=== PATIENT | female | born 2000 | race Caucasian/White ===

== ENCOUNTER 2024-08-04 14:24 | Emergency (ER) | payer MEDICARE, MEDICAID, SELFPAY ==
--- NOTE | ~2024-08-04 | XR_ITS ---
EXAMINATION: XR CHEST CLINICAL INFORMATION: ? foreign body COMPARISON: None available. TECHNIQUE: Frontal view of the chest was obtained. FINDINGS: No significant abnormality is noted involving the heart, lungs, mediastinum, bony thorax or soft tissues. No radiopaque foreign bodies seen in the chest. XR/XR chest 1V IMPRESSION: Unremarkable chest exam. Electronically signed by: Chadd Mcdaniel MD 08/04/2024 03:29 PM EST
--- NOTE | ~2024-08-04 | CT_ITS ---
CLINICAL HISTORY: foreign body CT abdomen and pelvis without contrast Comparison: None Findings: Mild atelectasis of the imaged lung bases. No obstructing stone in either kidney or either ureter. Mild fluid adjacent to the pancreas as can be seen with mild pancreatitis. Mild fluid and small mesenteric lymph nodes may be reactive. Mild steatotic change of the liver. The spleen is nonenlarged. The adrenal glands are normal. Gallbladder is unremarkable for noncontrast study. No small bowel obstruction. The appendix is within normal limits. Severe stool burden present.. The uterus is anteverted with intrauterine device in place. Superficial correlate opacities noted. Otherwise, no radiopaque retained foreign body. No adnexal soft tissue mass. Mild fluid in the pelvis is likely physiologic. Urinary bladder is unremarkable. Multilevel Schmorl's nodes of the thoracic lumbar vertebrae. IMPRESSION: 1. Intrauterine device is in place. Otherwise, no radiopaque retained foreign body. 2. No obstructing stone in either kidney or either ureter. 3. Mild fluid adjacent to the pancreas as can be seen with mild pancreatitis. This document has been electronically signed by: Derrick Hall MD on 08/04/2024 19:11:18
--- NOTE | 2024-08-04 15:03 | ED.GENADULT ---
HPI - General Adult General Chief complaint: Skin/Abscess/Foreign Body Stated complaint: SEC 21,INGESTED 3 MARKER CAPS T-1 PER EMS Time Seen by Provider: 08/04/24 14:46 Source: patient Mode of arrival: ambulatory Limitations: no limitations History of Present Illness HPI narrative: This is a 24 years old female brought in from [facility] because she ingested 3 cap from markers yesterday at 21:00. She arrived in no distress no abdominal pain no vomiting Onset (ago): day(s) (1) Location: abdomen Radiation: non-radiation Severity: mild Relieving factors: none Exacerbating factors: none Related Data Allergies Allergy/AdvReac Type Severity Reaction Status Date / Time No Known Allergies Allergy Verified 08/04/24 15:14 Review of Systems Constitutional: Constitutional: Reports no additional constitutional complaints Cardiovascular: Cardiovascular: Reports no additional cardiovascular complaints [facility] History [facility] Narrative: Depression, anxiety history of overdose Social History Social History Smoked in Last 30 Days: Yes Use of substances other than those prescribed or required for medical reasons: No Advance Directives: No Advance Directives Information Provided: Yes Physical Exam ED Vital Signs: Vital Signs - 24 hr 08/04/24 15:11 08/04/24 15:16 Temperature 97.0 F Pulse Rate 76 Respiratory Rate 18 Blood Pressure 148/70 H Pulse Oximetry 97 99 Oxygen Delivery Method Room Air Room Air BMI result Body Mass Index 53.1 No acute distress Const General: cooperative Orientation/consciousness: patient oriented x3 Limitations: no limitations HENMT Head: Yes normal to inspection General nose exam: Normal external nose present Face and sinus: Yes normal facial exam Mouth: Normal oral and palatal mucosa present Throat: Yes posterior oropharynx normal Neck Neck: Yes normal visual inspection and Yes full ROM Chest Chest palpation & inspection: normal inspection of the chest Resp Effort & Inspection: normal respiratory effort Auscultation: clear to auscultation bilaterally Cardio Jugular venous distension: no JVD Rate: regular rate Rhythm: regular rhythm GI Inspection: Yes normal to inspection Palpation (GI): Soft to palpation, not firm, nontender and no guarding Percussion: Yes normal to percussion Skin General skin exam: no rashes or lesions noted, elasticity normal and turgor normal Neuro General: patient oriented x3 Gait exam (Neuro): Normal gait present Motor exam (neuro): 5/5 motor strength present throughout Course Reevaluation(s) Reevaluation #1: signed off to Dr Mathews ct pending Time: 16:36 Medical Decision Making Medical Decision Making MDM Narrative: Patient presented with the ingestion of plastic cap we will obtain imaging Differential Diagnosis Differential Diagnoses: The differential diagnosis associated with the presentation includes Small-bowel obstruction Discharge Plan Discharge Clinical Impression: Foreign body ingestion Qualifiers: Encounter type: initial encounter Qualified Code(s): T18.9XXA - Foreign body of alimentary tract, part unspecified, initial encounter Patient Disposition: Still a Patient Print Language: Indian
[2024-08-04 15:11] VITALS: BP 144/76; BP 148/70; PULSE 76; PULSE 88; RESP 18; TEMP 36.1; O2SAT 97; O2SAT 99; BMI 53.1
[2024-08-04 15:16] VITALS: O2SAT 99
[2024-08-04] MEDS: Calcium Carbonate 750 MG TAB.CHEW 1500 MG PO (17:30)
[2024-08-04 18:06] LABS: UPreg QC Valid YES; Urine Pregnancy NEGATIVE (NEGATIVE)
[2024-08-04 18:28] VITALS: BP 107/55; PULSE 65; RESP 20; TEMP 37.1; O2SAT 97
--- OUTSIDE RECORDS SUMMARY | 2024-08-04 18:28 | XMS_ITS | Encounter Summary ---
Author Organization [facility] Address [address] [place] [address] Care Team Providers Care Svp Programmatic Tv Name Role Phone Kera Mcintyre Primary Care Provider [phone] Encounter Details Date Type Department Care Team (Late st Contact Info) Description 07/17/2024 Patient Outreach [facility] [address] [facility] [address] [place] [address] Madisyn Núñez Social History Tobacco Use Types Packs/Day Years Used Date Smoking Tobacco: Former Cigarettes 0.5 8.2 S tarted: 2017 Smokeless Tobacco: Current Last attempted to quit: 2019 Comments:Vapes nicotine Passive Exposure Comments:Pt vapes nicotine Alcohol Use Standard Drinks/Week Comments Not Currently 0 (1 standard drink = 0.6 oz pur e alcohol) Sober since 08/28/2021 [facility] Utilities Answer Date Recorded In the past 12 months has [email or web address], gas, oil, or water [employer] threatened to shut off services in your home? No 01/29/2024 Hunger Vital Sign Answer Date Recorded Within the past 12 months, y ou worried that your food would run out before you got the money to buy more. Never true 01/29/20 24 Within the past 12 months, t he food you bought just didn't last and you didn't have money to get more. Never true 01/29/2024 Transportation Answer Date Recorded In the past 12 months, has l ack of reliable transportation kept you from medical appointments, meetings, work or from getting things needed for daily living? No 01/29/2024 Housing Answer Date Recorded Housing Risk Low 2 01/29/2024 Housing Risk Medium Not on file 01/29/2024 Housing Risk High Not on file 01/29/2024 What is your living situation today? [facility] 01/29/2024 Comments No Sex and Gender Information Value Date Recorded Sex Assigned at Female 10/22/2021 6:27 AM EDT Legal Sex Female 5:19 AM EDT Gender Identity Female 10/22/2021 6:27 AM EDT Sexual Orientation Bisexual 11/22/2021 3: 04 AM EDT documented as of this encounter Progress Notes * Madisyn Núñez - 07/17/2024 2:09 PM EST EPIC reviewed. RN placed call to patient and left voice message, [phone] on [employer], with contact information/requesting a call back.No response from patient. Please send a referral if further needs arise. 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 no If not, what was the reason no one is assisting if member cannot complete independently? n/a What progress was made by the patient? Patient was going to follow up with Medicare/[employer] re:benefits when returning to work What barriers does the patient have? none Is patient still being managed by the [facility] care team? no documented in this encounter Plan of Treatment Upcoming Encounters Date Type Department Care Team (Late st Contact Info) Description 08/28/2024 3:00 PM EDT Follow-Up [facility] [address] [facility] [address] [place] [address] Fabián Franks MD [address] [place] [address] [phone] (Work) 10/03/2024 1:45 PM EDT Follow-Up [facility] [address] [place] [phone] [employer] Equipment Tender: Mary Smith MD [address] [facility] [place] [address] documented as of this encounter Visit Diagnoses Not on filedocumented in this encounter Care Teams Svp Programmatic Tv Relationship Specialty Start Date End Date Kera Mcintyre PA [address] [place] [address] [phone] PCP - General Physician Ramp Jockey 03/14/23 documented as of this encounter
--- OUTSIDE RECORDS SUMMARY | 2024-08-04 18:28 | XMS_ITS | Encounter Summary ---
Author Organization [facility] Address [address] [place] [address] Care Team Providers Care [employer] Filler C[employer] Rol[employer] Name Role Phone Kera Mcintyre Primary Care Provider [phone] Reason for Visit * Reason Comments Suicidal Encounter Details Date Type Department Care Team (Late st Contact Info) Description 07/31/2024 8:15 PM EST - 08/01/2024 11:37 AM EST Emergency [facility] Emergency Department [address] [place] [address] Angus Frey MD [address] [place] [id number] Mejia Crawley MD [address] [place] [id number] Aly Shipley MD [address] [place] [phone] Suicidal ideation (Primary Dx) Discharge Disposition: Short Term[facility] () Social History Tobacco Use Types Packs/Day Years Used Date Smoking Tobacco: Former Cigarettes 0.5 8.2 S tarted: 2017 Smokeless Tobacco: Current Last attempted to quit: 2019 Comments:Vapes nicotine Passive Exposure Comments:Pt vapes nicotine Alcohol Use Standard Drinks/Week Comments Not Currently 0 (1 standard drink = 0.6 oz pur e alcohol) Sober since 08/28/2021 [facility] Utilities Answer Date Recorded In the past 12 months has th e electric, gas, oil, or water company threatened to shut off services in your [...] AM EDT documented as of this encounter Last Filed Vital Signs Vital Sign Reading Time Taken Comments Blood Pressure 118/77 08/01/2024 8:32 AM EST Pulse 71 08/01/2024 8:32 AM EST Temperature 36.9 ??C (98.5 ??F) 08/01/2024 8:32 AM ES T Respiratory Rate 18 08/01/2024 8:32 AM EST Oxygen Saturation 98% 08/01/2024 8:32 AM EST Inhaled Oxygen Concentration - - Weight 167.8 kg (370 lb) 07/31/2024 7:33 PM EST Height 177.8 cm (5' 10 ) 07/31/2024 7:33 PM EST Body Mass Index 53.09 07/31/2024 7:33 PM EST documented in this encounter Medications at Time of Discharge acetaminophen (TYLENOL) 500 mg tablet Take 2 tablets (1,000 mg total) by mouth every 8 hours as needed for pain or fever. 100 tablet 1 2 albuterol (PROAIR HFA,VENTOLIN HFA) 90 mcg inhalerIndications: RAD (reactive airway disease), mild intermittent, uncomplicated Inhale 2 puffs (180 mcg total) by mouth every 6 hours as needed for wheezing or shortness of breath. Use with spacer. 8.5 g 5 2 busPIRone (BUSPAR) 15 mg tabletIndications:A nxiety Take 1 tablet (15 mg total) by mouth 2 times a day. At 8AM and 8PM 60 tablet 5 5 cephalexin (KEFLEX) 500 mg capsule Take 500 mg by mouth 2 times a day. clindamycin (CLEOCIN T) 1 % gel Apply topically to the affected area 2 times a day. clonazePAM (KlonoPIN) 0.5 mg tabletIndications:A nxiety Take 1 tablet (0.5 mg total) by mouth daily as needed for anxiety or agitation. 7 tablet 5 5 copper (PARAGARD T 380A INTRAUTERI) 1 each by intrauterine route once. diclofenac (VOLTAREN) 1% gel [address] (DEPAKOTE) 125 mg EC tabletIndications:B ipolar II disorder, mild, hypomanic, with mood-congruent psychotic features, in partial remission (HCC) Take 1 tablet (125 mg total) by mouth every night. Take along with 1500mg for total daily dose = 1650mg, nightly at 8PM 30 tablet 5 5 divalproex ER (Depakote ER) 500 mg tabletIndications:B ipolar II disorder, mild, hypomanic, with mood-congruent psychotic features, in partial remission (HCC),Encounter for long-term (current) use of medications Take 3 tablets (1,500 mg total) by mouth every night. At 8PM 90 tablet 5 5 Flovent HFA 110 mcg/actuation inhaler 2 fluoride, sodium, 1.1 % paste USE IN PLACE OF REGULAR TOOTHPASTE TWICE A DAY. 3 methocarbamoL (ROBAXIN) 500 mg tablet SMARTSI Tablet(s) By Mouth 4 Times Daily PRN 3 multivitamin (Multiple Vitamins) tablet Take 1 tablet by mouth once a day. mupirocin (BACTROBAN) 2% ointmentIndications :Furuncles Apply topically to the affected area 3 times a day. Apply to boils after warm compresses. 60 g 5 2 omeprazole (PriLOSEC) 40 mg capsule TAKE 1 CAPSULE(40 MG) BY MOUTH TWICE DAILY 180 capsule 5 ondansetron (ZOFRAN ODT) 4 mg disintegrating tablet Dissolve 1 tablet (4 mg total) in the mouth every 8 hours as needed for nausea or vomiting for up to 15 doses. 15 tablet 4 oxybutynin XL (DITROPAN XL) 10 mg tablet Take 1 tablet (10 mg total) by mouth once a day. 90 tablet 1 4 perphenazine (TRILAFON) 4 mg tabletIndications:B ipolar II disorder, mild, hypomanic, with mood-congruent psychotic features, in partial remission (HCC),Anxiety Take 1 tablet (4 mg total) by mouth 2 times a day. At 8AM and 8PM 60 tablet 5 5 polyethylene glycol (GoLYTELY) solution Take according to instructions provided by physician. 4000 mL 4 pregabalin (LYRICA) 100 mg capsule Take 200 mg by mouth every night. propranoloL (INDERAL) 40 mg tabletIndications:C hest pain, unspecified type Take 1 tablet (40 mg total) by mouth 2 times a day. 60 tablet 1 3 QUEtiapine (SEROquel) 25 mg tabletIndications:B ipolar II disorder, mild, hypomanic, with mood-congruent psychotic features, in partial remission (HCC) Take 1 tablet (25 mg total) by mouth nightly. At 8PM 30 tablet 5 5 rimegepant ODT 75 mg (Nurtec ODT) 75 mg tablet,disintegrati ng disintegrating tablet Dissolve in the mouth. Has not used yet SUMAtriptan (IMITREX) 50 mg tablet Take 1 tablet (50 mg total) by mouth once as needed for migraine (headache) for up to 1 dose. May repeat one time after 2 hours if needed. 27 tablet 3 2 tiZANidine (ZANAFLEX) 4 mg tablet Take 4 mg by mouth every 8 hours as needed for muscle spasms. documented as of this encounter ED Notes * Angus rFey MD - 07/31/2024 7:21 PM EST History HPI: Chief Complaint Patient presents with Suicidal HPI This is a 24 y.o. female with significant PMHx of outlined below including extensive psychiatric history presents to the ED with concern for worsening depression and intermittent suicidal ideation. Notes increasing stressors surrounding new job as well as family concerns. Has felt increasing stress surrounding a new job, has been following with psychiatrist but feels that symptoms have been decompensating. Has had intermittent thoughts of wanting to harm self by taking medications although has not actually done so. No self injury. Today stayed home from work was feeling manic and thus presents here for evaluation. Does note active SI no plan at this time. No HI no other medical complaints. Did stop taking lithium 3 months ago and believes is contributing. 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 Migraines Mild intermittent asthma Since childhood PCOS (polycystic ovarian syndrome) POTS (postural orthostatic tachycardia syndrome) 2004 Sleep apnea TMJ (temporomandibular joint disorder) Past Surgical History: Procedure Laterality Date CA COLONOSCOPY FLX DX W/COLLJ SPEC WHEN PFRMD N/A 07/18/2024 Procedure: COLONOSCOPY, DIAGNOSTIC, WITH POSSIBLE MODERATE SEDATION; Surgeon: Fabián Franks MD; Location: [facility] Endo; Service: Gastroenterology CA ESOPHAGOGASTRODUODENOSCOPY TRANSORAL DIAGNOSTIC N/A 07/18/2024 Procedure: UPPER ENDOSCOPY; DIAGNOSTIC WITH BRUSH/WASH (SP) WITH POSSIBLE MODERATE SEDATION; Surgeon: Fabián Franks MD; Location: [facility] Endo; Service: Gastroenterology TONSILECTOMY Family History Problem Relation Age of Onset Parkinsonism Mother Thyroid nodules Mother Bening Other Mother suspected CVA Migraines Mother Schizophrenia Father Gallbladder disease Maternal Half-sister TAMIE disease Maternal Half-sister Migraines Maternal Half-sister No Known Problems Paternal Half-sister Gallbladder disease Maternal Half-brother Thyroid cancer Neg Hx Diabetes type II Neg Hx Social History Tobacco Use Smoking status: Former Current packs/day: 0.50 Average packs/day: 0.5 packs/day for 8.2 years (4.1 ttl pk-yrs) Types: Cigarettes Start date: 2016 Smokeless tobacco: Current Last attempt to quit: 2019 Tobacco comments: Vapes nicotine Vaping Use Vaping status: Every Day Substances: Nicotine, Flavoring, Nicotine-salt Substance Use Topics Alcohol use: Not Currently Comment: Sober since 08/28/2021 Drug use: Not Currently Types: Crack cocaine, Benzodiazepines, Methamphetamines, Methylphenidate Comment: none 08/28/2021 Vaping Questions Responses Vaping Use Current Every Day User Nicotine Yes Nicotine Salt Yes Flavored Yes Sexuality and Gender Identity Sexuality Patient's sexual orientation: Bisexual Legal Information Legal first name: Roberto Legal last name: Jose Guadalupe Legal sex: Female Gender Identity Patient's gender identity: Female Patient's sex assigned at : Female Patient pronouns: she/her/hers[HG1.1] Affirmation steps patient has taken, if any: fashion aligned with gender identity[HG1.1] Organ Inventory Organs the patient currently has: Organs present at or expected at to develop: Organs surgically enhanced or constructed: Organs hormonally enhanced or developed: breasts cervix ovaries uterus vagina penis prostate testes Attribution HG1.1 Lesea Bradshaw RN 11/22/21 03:04 Review of Systems REVIEW OF SYSTEMS: Physical Exam Physical Exam ED Triage Vitals [07/31/24 1933] Temp Heart Rate Resp BP SpO2 36.8 ??C (98.3 ??F) 100 20 (!) 152/93 95 % Temp src Heart Rate Source Patient Position BP Location Set FiO2 (O2%) -- Pulse Oximeter Sitting Right arm -- Physical Exam Vitals and nursing note reviewed. Constitutional: Comments: Alert, no distress HENT: Head: Normocephalic and atraumatic. Mouth/Throat: Mouth: Mucous membranes are moist. Eyes: General: No scleral icterus. Pupils: Pupils are equal, round, and reactive to light. Comments: Eyes dilated but equal and reactive pupils Cardiovascular: Rate and Rhythm: Normal rate. Pulses: Normal pulses. Heart sounds: No murmur heard. Pulmonary: Effort: Pulmonary effort is normal. Breath sounds: Normal breath sounds. Abdominal: Palpations: Abdomen is soft. Tenderness: There is no abdominal tenderness. Musculoskeletal: Cervical back: Normal range of motion and neck supple. Right lower leg: No edema. Left lower leg: No edema. Comments: Legs warm and perfused Skin: General: Skin is warm and dry. Neurological: Mental Status: She is alert. Comments: Alert and oriented Psychiatric: Comments: Somewhat withdrawn reports SI no HI no active response to internal stimuli Medical Decision Making and ED Course MDM 24 y.o. female with PMHx as noted above presents with worsening mental health concerns. Here she iscalm appropriate and in no distress but has had some intermittent suicidal ideation. No active plan. She denies any Co. ingestion despite her history. At this time will place in line for CH[facility] evaluation will place section 12, no active medical concerns but will check labs given her valproate use to ensure there is no evidence of complication. Roberto Shi : 2000 CSN: [id number] Angus Frey MD 08/02/24 0710 documented in this encounter Miscellaneous Notes * ED Continuation of Care - Aly Shipley MD - 08/01/2024 8:45 AM EST 08/01/24 12:09 PM Patient signed out to me by The patient is a 24 y.o. female signed out to me at shift change. The patient is here with SuicidalIdeation and is on a Section XIIa. The plan is Inpatient Bed Search. Labs Reviewed VALPROIC ACID LEVEL, TOTAL - Abnormal Result Value Valproic Acid, Total 49 (*) RAPID COVID-19 RNA FOR SURVEILLANCE (ED ONLY) - Normal PCR, SARS CoV-2 RNA Not Detected Narrative: This test was developed, validated and its performance characteristics determined by [facility]. This test has not been cleared or approved by the U.S. Food and Drug Administration (FDA). FDA Policy for Diagnostic Tests for Coronavirus Disease-2019 during the Public Health Emergency issuedAugust 18, 2019, is followed. HCG, QUALITATIVE, SERUM - Normal HCG Qualitative, Serum Negative No orders to display Medications methocarbamoL (ROBAXIN) tablet 500 mg (has no administration in time range) SUMAtriptan (IMITREX) tablet 50 mg (has no administration in time range) albuterol (PROAIR HFA,VENTOLIN HFA) 90 mcg inhaler 180 mcg (has no administration in time range) busPIRone (BUSPAR) tablet 15 mg (15 mg oral Given 08/01/24839) divalproex DR (DEPAKOTE) EC tablet 125 mg (125 mg oral Given 07/31/242144) divalproex ER (DEPAKOTE ER) tablet 1,500 mg (1,500 mg oral Given 07/31/242144) pantoprazole DR (PROTONIX) tablet 20 mg (20 mg oral Given 08/01/24840) ondansetron (ZOFRAN ODT) disintegrating tablet 4 mg (has no administration in time range) perphenazine (TRILAFON) tablet 4 mg (4 mg oral Given 08/01/24840) pregabalin (LYRICA) capsule 200 mg (200 mg oral Given 07/31/242144) propranoloL (INDERAL) tablet 40 mg (40 mg oral Given 08/01/24840) QUEtiapine (SEROquel) tablet 25 mg (25 mg oral Given 07/31/242144) clonazePAM (KlonoPIN) tablet 0.5 mg (0.5 mg oral Given 08/01/24224) acetaminophen (TYLENOL) tablet 975 mg (975 mg oral Given 07/31/242110) ASSESSMENT/PLAN Diagnosis: (R45.851) Suicidal ideation (primary encounter diagnosis) Disposition: Transfer to [facility] Prescriptions: ED Prescriptions None Followup: documented in this encounter Plan of Treatment Upcoming Encounters Date Type Department Care Team (Late st Contact Info) Description 08/28/2024 3:00 PM EDT Follow-Up [facility] [address] [place] [address] Fabián Franks MD [address] [place] [phone] (Work) 10/03/2024 1:45 PM EDT Follow-Up [facility] [address] [facility], [address] [address] Harpooner: Mary Smith MD [address] [facility] [place] [address] documented as of this encounter Procedures * Due to [place] Ixtens law, this organization might not be sharing negative HIV tests. Procedure Name Priority Date/Time Associated Diagnosis Comments HCG, QUALITATIVE, SERUM STAT 07/31/2024 9:36 PM EST VALPROIC ACID LEVEL, TOTAL STAT 07/31/2024 9:36 PM EST RAPID COVID-19 RNA FOR SURVEILLANCE (ED ONLY) STAT 07/31/2024 9:35 PM EST documented in this encounter Results * Due to [place] Ixtens law, this organization might not be sharing negative HIV tests. * (ABNORMAL) Valproic Acid Level, Total (07/31/2024 9:36 PM EST) Valproic Acid, Total 49(L) 50 - 100 ug/mL 07/31/2024 10:09 PM EST [facility] Blood Structure of peripheral vein / Unknown Venipuncture / Unknown 07/31/2024 9:36 PM EST 07/31/2024 9:39 PM EST us Angus Frey MD LAB BLOOD ORDERABLES Final Result [facility] LESport[facility]CAR[facility] [address] [place] [address], * hCG, Qualitative, Serum (07/31/2024 9:36 PM EST) HCG Qualitative, Serum Negative Negative [facility] 07/31/2024 10:17 PM EST [facility] Comment: hCG may be negative in early . ??Suggest repeat testing in 2-4 days if clinically indicated. ??The results of this test should be interpreted with the patient's clinical presentation. Blood Structure of peripheral vein / Unknown Venipuncture / Unknown 07/31/2024 9:36 PM EST 07/31/2024 9:39 PM EST Angus Frey MD LAB BLOOD ORDERABLES Final Result Performing Organization Address City/[facility]/ZIP Co de Phone Number [facility] [address] [place] [phone], * Rapid COVID-19 for Surveillance - Psych/Admission (07/31/2024 9:35 PM EST) Pathologist [facility] PCR, SARS CoV-2 RNA Not Detected Not Detected [facility] 07/31/2024 10:14 PM EST [facility] Comment:A Not Detected (Nega tive) test result is indicative of the absence of SARS-CoV-2 RNA at the level of LoD (Limit of Detection). A negative result does not rule out the possibility of COVID-19 and should not be used as the sole basis for treatment or patient management decisions. If COVID-19 is still suspected, based on exposure history together with other clinical findings, re-testing should be considered. Swab Specimen from nasopharyngeal structure / Unknown Non-Blood Collection / Unknown 07/31/2024 9:35 PM EST 07/31/2024 9:40 PM EST Narrative [facility] - 07/31/2024 10:14 PM EST This test was developed, validated and its performance characteristics determined by [facility]. This test has not been cleared or approved by the U.S. Food and Drug Administration (FDA). FDA Policy for Diagnostic Tests for Coronavirus Disease-2019 during the Public Health Emergency issued August 18, 2019, is followed. Angus Frey MD LAB BODY FLUIDS AND STOOLS ORDERABLES Final Result Performing Organization Address City/[facility]/ZIP Co de Phone Number [facility] [address] [place] [address], documented in this encounter Visit Diagnoses Diagnosis Suicidal ideation- Primary documented in this encounter Administered Medications Inactive Administered Medications - up to 3 most recent administrations Medication Order MAR Action Action Date Dose Rate Site acetaminophen (TYLENOL) tablet 975 mg 975 mg, oral, Once, On Day 07/31/24 at 2105, 1 dose, Patient may have acetaminophen for Pain/Headache/Fever >38C. Do not administer if patient has received Acetaminophen (Tylenol) within the past 4 hours. Max dose 975mg Given 07/31/2024 9:11 PM EST 975 mg busPIRone (BUSPAR) tablet 15 mg 15 mg, oral, 2 times daily, First dose on Sun08/01/24 at 0900, Until Discontinued Given 08/01/2024 8:40 AM EST 15 mg clonazePAM (KlonoPIN) tablet 0.5 mg 0.5 mg, oral, Daily PRN, anxiety, Starting on Sun08/01/24 at 0144, Until Sun08/01/24 at 1337, Hazardous Medication ? Reproductive Risk. Use PPE when handling. Given 08/01/2024 2:25 AM EST 0.[address] (DEPAKOTE) EC tablet 125 mg 125 mg, oral, Nightly, First dose on Day 07/31/24 at 2145, Until Discontinued, Do not crush. Hazardous Medication. Use PPE when handling. Given 07/31/2024 9:45 PM EST 125 mg divalproex ER (DEPAKOTE ER) tablet 1,500 mg 1,500 mg, oral, Nightly, First dose on Day 07/31/24 at 2145, Until Discontinued, Do not crush. Do not administer with carbonated beverages. Hazardous Medication. Use PPE when handling. Given 07/31/2024 9:45 PM EST 1,[address] (PROTONIX) tablet 20 mg 20 mg, oral, Daily, First dose on Sun08/01/24 at 0900, Until Discontinued, Do not crush. Given 08/01/2024 8:41 AM EST 20 mg perphenazine (TRILAFON) tablet 4 mg 4 mg, oral, 2 times daily, First dose on Sun08/01/24 at 0900, Until Discontinued Given 08/01/2024 8:41 AM EST 4 mg pregabalin (LYRICA) capsule 200 mg 200 mg, oral, Nightly, First dose on Day 07/31/24 at 2145, Until Discontinued Given 07/31/2024 9:45 PM EST 200 mg propranoloL (INDERAL) tablet 40 mg 40 mg, oral, 2 times daily, First dose on Sun08/01/24 at 0900, Until Discontinued, Hold for SBP less than 100 mmHg or HR less than 50 bpm. Given 08/01/2024 8:41 AM EST 40 mg QUEtiapine (SEROquel) tablet 25 mg 25 mg, oral, Nightly, First dose on Day 07/31/24 at 2145, Until Discontinued Given 07/31/2024 9:45 PM EST 25 mg documented in this encounter Active and Recently Administered Medications Times are shown in EST. Scheduled Medication Order 07/30/2024 07/31/2024 08/01/2024 acetaminophen (TYLENOL) tablet 975 mg (COMPLETED) 975 mg, oral, Once, On Day 07/31/24 at 2105, 1 dose, Patient may have acetaminophen for Pain/Headache/Fever >38C. Do not administer if patient has received Acetaminophen (Tylenol) within the past 4 hours. Max dose 975mg 2110 (Given - Provider: Vicki Sabillon RN) busPIRone (BUSPAR) tablet 15 mg 15 mg, oral, 2 times daily, First dose on Sun08/01/24 at 0900, Until Discontinued 0840 (Given - Provid er: Phyllis Francois RN) divalproex DR (DEPAKOTE) EC tablet 125 mg 125 mg, oral, Nightly, First dose on Day 07/31/24 at 2145, Until Discontinued, Do not crush. Hazardous Medication. Use PPE when handling. 2144 (Given - Provider: Vicki Sabillon RN) divalproex ER (DEPAKOTE ER) tablet 1,500 mg 1,500 mg, oral, Nightly, First dose on Day 07/31/24 at 2145, Until Discontinued, Do not crush. Do not administer with carbonated beverages. Hazardous Medication. Use PPE when handling. 2144 (Given - Provider: Vicki Sabillon RN) pantoprazole DR (PROTONIX) tablet 20 mg 20 mg, oral, Daily, First dose on Sun08/01/24 at 0900, Until Discontinued, Do not crush. 0841 (Given - Provid er: Phyllis Francois RN) perphenazine (TRILAFON) tablet 4 mg 4 mg, oral, 2 times daily, First dose on Sun08/01/24 at 0900, Until Discontinued 840 (Given - Provid er: Phyllis Francois RN) pregabalin (LYRICA) capsule 200 mg 200 mg, oral, Nightly, First dose on Sun07/31/24 at 2145, Until Discontinued 2144 (Given - Provider: Vicki Sabillon RN) propranoloL (INDERAL) tablet 40 mg 40 mg, oral, 2 times daily, First dose on Sun08/01/24 at 0900, Until Discontinued, Hold for SBP less than 100 mmHg or HR less than 50 bpm. 840 (Given - Provid er: Phyllis Francois RN) QUEtiapine (SEROquel) tablet 25 mg 25 mg, oral, Nightly, First dose on Sun07/31/24 at 2145, Until Discontinued 2144 (Given - Provider: Vicki Sabillon RN) PRN Medication Order 07/30/2024 07/31/2024 08/01/2024 albuterol (PROAIR HFA,VENTOLIN HFA) 90 mcg inhaler 180 mcg 180 mcg (2 puff), inhalation, Every 6 hours PRN, wheezing, shortness of breath, Starting on Sun07/31/24 at 2139, Until Sun08/01/24 at 1337, Is this a respiratory protocol order? No clonazePAM (KlonoPIN) tablet 0.5 mg 0.5 mg, oral, Daily PRN, anxiety, Starting on Sun08/01/24 at 0144, Until Sun08/01/24 at 1337, Hazardous Medication ? Reproductive Risk. Use PPE when handling. 0225 (Given - Provid er: Vicki Sabillon RN) methocarbamoL (ROBAXIN) tablet 500 mg 500 mg, oral, Once as needed, muscle spasms, Starting on Sun07/31/24 at 2139, 1 dose, Until Sun08/01/24 at 1337 ondansetron (ZOFRAN ODT) disintegrating tablet 4 mg 4 mg, oral, Every 8 hours PRN, nausea, vomiting, Starting on Day 07/31/24 at 2139, Until Sun08/01/24 at 1337 SUMAtriptan (IMITREX) tablet 50 mg 50 mg, oral, Once as needed, migraine, headache, Starting on Day 07/31/24 at 2139, Until Sun08/01/24 at 1337, Total daily dose should not exceed 200 mg. documented in this encounter Care Teams [employer]iller [employer] Roller Machine Relationship Specialty Start Date End Date Kera Mcintyre PA [address] [place] [id number] PCP - General Physician Hydraulic Technician 03/14/23 documented as of this encounter
--- OUTSIDE RECORDS SUMMARY | 2024-08-04 18:28 | XMS_ITS | Encounter Summary ---
Author Organization [facility] Address [address] [place] [address] Care Team Providers Care Field Collector Name Role Phone Kera Mcintyre Primary Care Provider [phone] Encounter Details Date Type Department Care Team (Late st Contact Info) Description 07/14/2024 Patient Outreach [facility] [address] [facility] [address] [place] [address] Madisyn Núñez Social History Tobacco Use Types Packs/Day Years Used Date Smoking Tobacco: Former Cigarettes 0.5 8.2 S tarted: 2017 Smokeless Tobacco: Current Last attempted to quit: 2019 Comments:Vapes nicotine Passive Exposure Comments:Pt vapes nicotine Alcohol Use Standard Drinks/Week Comments Not Currently 0 (1 standard drink = 0.6 oz pur e alcohol) Sober since 08/28/2021 [facility] Utilities Answer Date Recorded In the past 12 months has [employer], gas, oil, or water [employer] threatened to shut off services in your [...] encounter Progress Notes * Madisyn Núñez - 07/14/2024 12:54 PM EST EPIC reviewed. RN placed call to patient and left voice message, [phone] on [employer], with contact information/requesting a call back. Will continue to outreach patient. Madisyn Núñez RN, CR[facility] [phone] documented in this encounter Plan of Treatment Upcoming Encounters Date Type Department Care Team (Late st Contact Info) Description 08/28/2024 3:00 PM EDT Follow-Up [facility] [address] [facility] [address] [place] [id number] Fabián Franks MD [address] [place] [address] [phone] (Work) 10/03/2024 1:45 PM EDT Follow-Up [facility] [address] [place] [address] Livestock Farmer: Mary Smith MD [address] [place] [address] Obstetrics [place] [address] documented as of this encounter Visit Diagnoses Not on filedocumented in this encounter Care Teams Field Collector Relationship Specialty Start Date End Date Kera Mcintyre PA [address] [place] [address] PCP - General Physician Vehicle Mechanic 03/14/23 documented as of this encounter
--- OUTSIDE RECORDS SUMMARY | 2024-08-04 18:28 | XMS_ITS | Encounter Summary ---
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 Name Role Phone Kera Mcintyre Primary Care Provider [phone] Reason for Visit * Auth/Cert (Routine) Specialty Diagnoses / Procedures Referred By Tru wisdom Referred To Contact Diagnoses Hiatal hernia Change in bowel habits Hiatal hernia [K44.9] Change in bowel habits [R19.4] Procedures WI COLONOSCOPY FLX DX W/COLLJ SPEC WHEN PFRMD WI ESOPHAGOGASTRODUODENOSCOPY TRANSORAL DIAGNOSTIC COLONOSCOPY, DIAGNOSTIC, WITH POSSIBLE MODERATE SEDATION UPPER ENDOSCOPY; DIAGNOSTIC WITH BRUSH/WASH (SP) WITH POSSIBLE MODERATE SEDATION Referral ID Status Reason Start Date Expiration Date Visits Re quested Visits Authorized [id number] 99 [phone] Encounter Details Date Type Department Care Team (Late st Contact Info) Description 07/18/2024 2:30 PM EST - 07/18/2024 3:00 PM EST Surgery [facility] Endscopy and Minor Procedure [address] [place] [address] Fabián Franks MD [address] [place] [address] [phone] (Work) COLONOSCOPY, DIAGNOSTIC, WITH POSSIBLE MODERATE SEDATION [17954 (CPT??)] Social History Tobacco Use Types Packs/Day Years Used Date Smoking Tobacco: Former Cigarettes 0.5 8.2 S tarted: 2017 Smokeless Tobacco: Current Last attempted to quit: 2019 Comments:Vapes nicotine Passive Exposure Comments:Pt vapes nicotine Alcohol Use Standard Drinks/Week Comments Not Currently 0 (1 standard drink = 0.6 oz pur e alcohol) Sober since 08/28/2021 [facility] Utilities Answer Date Recorded In the [...] Sign Reading Time Taken Comments Blood Pressure 170/82 07/18/2024 2:30 PM EST Pulse 80 07/18/2024 2:14 PM EST Temperature 36.3 ??C (97.4 ??F) 07/18/2024 2:14 PM ES T Respiratory Rate 18 07/18/2024 2:14 PM EST Oxygen Saturation 94% 07/18/2024 2:30 PM EST Inhaled Oxygen Concentration - - Weight 164.2 kg (362 lb) 07/18/2024 1:10 PM EST Height 177.8 cm (5' 10 ) 07/18/2024 1:10 PM EST Body Mass Index 51.94 07/18/2024 1:10 PM EST documented in this encounter Discharge Instructions * Attachments The following attachments cannot be sent through Care Everywhere. * High Fiber Diet (Armenian) * Hiatal Hernia Discharge Instructions (Armenian) documented in this encounter Medications at Time [...] By Mouth 4 Times Daily PRN 3 mupirocin (BACTROBAN) 2% ointmentIndications :Furuncles Apply topically [...] nightly. At 8PM 30 tablet 5 5 SUMAtriptan (IMITREX) 50 mg tablet Take 1 tablet (50 mg total) by mouth once as needed for migraine (headache) for up to 1 dose. October repeat one time after 2 hours if needed. 27 tablet 3 2 documented as of this encounter H&P Notes * Fabián Franks MD - 07/18/2024 1:10 PM EST HISTORY AND PHYSICAL Subjective Chief Complaint: Hiatal hernia History of Present Illness: Change in bowel habits The following portions of the patient's history were reviewed, found to be unchanged or updated as appropriate: Family history, past medical history, social history, past surgical history and problemlist. Current Outpatient Medications: Click to expand medication list[1] Allergies: No Known Allergies Review of Systems: As per history of present illness. Objective Physical Exam: not currently . General Appearance: Alert,in no acute distress. Oriented to person, place and time. Chest: Clear to ausculation bilaterally, no wheeze, rales or rhonchi Heart: Regular rate and rhythm Abdomen: Soft, non-tender, non-distended Other exam findings pertinent to surgical condition: Assessment & Plan 24-year-old female with hiatal hernia and change in bowel habits. I will do both EGD and colonoscopy. Signature: Fabián Franks MD Electronic Signature [1] acetaminophen (TYLENOL) 500 mg tablet, Take 2 tablets (1,000 mg total) by mouth every 8 hours as needed for pain or fever. albuterol (PROAIR HFA,VENTOLIN HFA) 90 mcg inhaler, Inhale 2 puffs (180 mcg total) by mouth every 6hours as needed for wheezing or shortness of breath. Use with spacer. busPIRone (BUSPAR) 15 mg tablet, Take 1 tablet (15 mg total) by mouth 2 times a day. At 8AM and 8PM cephalexin (KEFLEX) 500 mg capsule, Take 500 mg by mouth 2 times a day. clindamycin (CLEOCIN T) 1 % gel, Apply topically to the affected area 2 times a day. clonazePAM (KlonoPIN) 0.5 mg tablet, Take 1 tablet (0.5 mg total) by mouth daily as needed for anxiety or agitation. copper (PARAGARD T 380A INTRAUTERI), 1 each by intrauterine route once. diclofenac (VOLTAREN) 1% gel, divalproex DR (DEPAKOTE) 125 mg EC tablet, Take 1 tablet (125 mg total) by mouth every night. Take along with 1500mg for total daily dose = 1650mg, nightly at 8PM divalproex ER (Depakote ER) 500 mg tablet, Take 3 tablets (1,500 mg total) by mouth every night. At8PM Flovent HFA 110 mcg/actuation inhaler, fluoride, sodium, 1.1 % paste, USE IN PLACE OF REGULAR TOOTHPASTE TWICE A DAY. fremanezumab-vfrm (Ajovy Autoinjector) 225 mg/1.5 mL auto-injector, Inject 1.5 mL (225 mg total) under the skin every 30 days. methocarbamoL (ROBAXIN) 500 mg tablet, SMARTSI Tablet(s) By Mouth 4 Times Daily PRN mupirocin (BACTROBAN) 2% ointment, Apply topically to the affected area 3 times a day. Apply to boils after warm compresses. omeprazole (PriLOSEC) 40 mg capsule, TAKE 1 CAPSULE(40 MG) BY MOUTH TWICE DAILY ondansetron (ZOFRAN ODT) 4 mg disintegrating tablet, Dissolve 1 tablet (4 mg total) in the mouth every 8 hours as needed for nausea or vomiting for up to 15 doses. oxybutynin XL (DITROPAN XL) 10 mg tablet, Take 1 tablet (10 mg total) by mouth once a day. perphenazine (TRILAFON) 4 mg tablet, Take 1 tablet (4 mg total) by mouth 2 times a day. At 8AM and 8PM polyethylene glycol (GoLYTELY) solution, Take according to instructions provided by physician. (Patient not taking: Reported on 05/23/2024) pregabalin (LYRICA) 100 mg capsule, Take 200 mg by mouth every night. propranoloL (INDERAL) 40 mg tablet, Take 1 tablet (40 mg total) by mouth 2 times a day. QUEtiapine (SEROquel) 25 mg tablet, Take 1 tablet (25 mg total) by mouth nightly. At 8PM SUMAtriptan (IMITREX) 50 mg tablet, Take 1 tablet (50 mg total) by mouth once as needed for migraine (headache) for up to 1 dose. May repeat one time after 2 hours if needed. documented in this encounter Procedure Notes * Fabián Franks MD - 07/18/2024 1:13 PM ESTAssociated Order(s): UPPER GI ENDOSCOPY [facility]ology Procedure Date: 07/18/2024 1:13 PM Patient Name: Roberto Shi Date of : 2000 Admit Type: Outpatient Age: 24 Room: [place] [address] Gender: Female Note Status: Finalized Attending MD: Fabián Franks MD Procedure: Upper GI endoscopy Indications: Follow-up of hiatal hernia Comorbidities Providers: Fabián Franks MD Referring MD: Fabián Franks MD (Referring MD), Kera Mcintyre (Referring ) Requesting Provider: Medicines: Monitored Anesthesia Care Complications: No immediate complications. Estimated Blood Loss: Estimated blood loss: none. Procedure: After obtaining informed consent, the endoscope was passed under direct vision. Throughout the procedure, the patient's blood pressure, pulse, and oxygen saturations were monitored continuously. The Upper GI Endoscopy was introduced through the mouth, and advanced to the second part of duodenum. The upper GI endoscopy was accomplished without difficulty. The patient tolerated the procedure well. Findings: A small hiatal hernia was present. The stomach was normal. The examined duodenum was normal. Impression: - Small hiatal hernia. - Normal stomach. - Normal examined duodenum. - No specimens collected. Fabián Franks MD 07/18/2024 2:13:19 PM Number of Addenda: 0 Note Initiated On: 07/18/2024 1:13 PM * Fabián Franks MD - 07/18/2024 1:13 PM ESTAssociated Order(s): COLONOSCOPY [facility] Procedure Date: 07/18/2024 1:13 PM Patient Name: Roberto Shi Date of : 2000 Admit Type: Outpatient Age: 24 Room: [place] [address] Gender: Female Note Status: Finalized Attending MD: Fabián Franks MD Procedure: Colonoscopy Indications: Change in bowel habits Comorbidities Providers: Fabián Franks MD Referring MD: Fabián Franks MD (Referring MD), Kera Mcintyre (Referring ) Requesting Provider: Medicines: Monitored Anesthesia Care Complications: No immediate complications. Estimated Blood Loss: Estimated blood loss: none. Procedure: After I obtained informed consent, the scope was passed under direct vision. Throughout the procedure, the patient's blood pressure, pulse, and oxygen saturations were monitored continuously. The Colonoscopy was introduced through the anus and advanced to the cecum, identified by appendiceal orifice and ileocecal valve. The colonoscopy was performed without difficulty. The patient tolerated the procedure well. The quality of the bowel preparation was good. Findings: The entire examined colon appeared normal. Impression: - The entire examined colon is normal. - No specimens collected. Recommendation: High Fiber Diet Fabián Franks MD 07/18/2024 2:14:30 PM Number of Addenda: 0 Note Initiated On: 07/18/2024 1:13 PM documented in this encounter Miscellaneous Notes * Post-Procedure Note - Fabián Franks MD - 07/18/2024 2:09 PM EST Brief Operative Note Procedure(s): COLONOSCOPY, DIAGNOSTIC, WITH POSSIBLE MODERATE SEDATION (N/A) UPPER ENDOSCOPY; DIAGNOSTIC WITH BRUSH/WASH (SP) WITH POSSIBLE MODERATE SEDATION (N/A) Pre-op Diagnosis * Hiatal hernia [K44.9] * Change in bowel habits [R19.4] Post-op Diagnosis: * Hiatal hernia [K44.9] * Change in bowel habits [R19.4] Surgeons and Role: * Fabián Franks MD - Primary Staff: Nurse: Dai Ballesteros RN Anesthesia: MAC Estimated Blood Loss: Minimal Anesthesia Encounters Anesthesia Encounter - Episode ID [id number] Intraprocedure I/O Totals Intake lactated Ringer's (LR) infusion 400.00 mL Total Intake 400 mL Specimens: * No specimens in log * Implants: * No implants in log * Drains: *No LDA information documented for this case* Complications: None Findings: No pathology noted in the colon Small hiatal hernia noted in the upper GI tract Recommendations: Roberto Shi : 2000 CSN: [id number] documented in this encounter Plan of Treatment Upcoming Encounters Date Type Department Care Team (Late st Contact Info) Description 08/28/2024 3:00 PM EDT Follow-Up [facility], [address] [facility] [address] [place] [id number] Fabián Franks MD [address] [place] [phone] (Work) 10/03/2024 1:45 PM EDT Follow-Up [facility]ro[facility]ne[facility] Clinic [address] [place] [address] Is Consultant: Mary Smith MD [address] [place] [address] Obstetrics [place] [address] documented as of this encounter Procedures * Due to [place] state law, this organization might not be sharing negative HIV tests. Procedure Name Priority Date/Time Associated Diagnosis Comments WI ESOPHAGOGASTRODUODENOSCOP Y TRANSORAL DIAGNOSTIC 07/18/2024 1:50 PM EST Hiatal hernia Change in bowel habits WI COLONOSCOPY FLX DX W/NII J SPEC WHEN PFRMD 07/18/2024 1:50 PM EST Hiatal hernia Change in bowel habits HCG QUALITATIVE, , URINE, POC Routine 07/18/2024 1:14 PM EST UPPER GI ENDOSCOPY 07/18/2024 COLONOSCOPY 07/18/2024 documented in this encounter Results * Due to [place] state law, this organization might not be sharing negative HIV tests. * HCG Qualitative, , Urine, POC, interfaced (07/18/2024 1:14 PM EST) HCG Qualitative, Urine, POCT Negative Negative 07/18/2024 1:20 PM EST [facility], POC Comment: Urine HCG testing should be used for early detection only. If the urine HCG result is inconsistent with, or unsupported by, clinical evidence, results should be confirmed with serum HCG method. Urine 07/18/2024 1:14 PM EST 07/18/2024 1:20 PM EST us Fabián Fransk MD LAB POCT ORDERAB LES - DEVICE Final Result [facility], POC [address] [place] [address], * COLONOSCOPY (07/18/2024) Narrative Procedure Note Fabián Franks MD - 07/18/2024 1:13 PM EST [facility] Procedure Date: 07/18/2024 1:13 PM Patient Name: Roberto Shi Date of : 2000 Admit Type: Outpatient Age: 24 Room: [place] [address] Gender: Female Note Status: Finalized Attending MD: Fabián Franks MD Procedure: Colonoscopy Indications: Change in bowel habits Comorbidities Providers: Fabián Franks MD Referring MD: Fabián Franks MD (Referring MD), Kera Mcintyre (ReferringMD) Requesting Provider: Medicines: Monitored Anesthesia Care Complications: No immediate complications. Estimated Blood Loss: Estimated blood loss: none. Procedure: After I obtained informed consent, the scope was passed under direct vision. Throughout theprocedure, the patient's blood pressure, pulse, and oxygen saturations were monitored continuously. The Colonoscopy was introduced through the anus and advanced to the cecum, identified by appendiceal orifice and ileocecal valve. The colonoscopy was performed without difficulty. The patient tolerated the procedure well. The quality of the bowel preparation was good. Findings: The entire examined colon appeared normal. Impression: - The entire examined colon is normal. - No specimens collected. Recommendation: High Fiber Diet Fabián Franks MD 07/18/2024 2:14:30 PM Number of Addenda: 0 Note Initiated On: 07/18/2024 1:13 PM us Fabián Franks MD [employer]ATION [employer] URES Final Result * UPPER GI ENDOSCOPY (07/18/2024) Narrative Procedure Note Fabián Franks MD - 07/18/2024 1:13 PM EST [facility] Procedure Date: 07/18/2024 1:13 PM Patient Name: Roberto Shi Date of : 2000 Admit Type: Outpatient Age: 24 Room: [place] [address] Gender: Female Note Status: Finalized Attending MD: Fabián Franks MD Procedure: Upper GI endoscopy Indications: Follow-up of hiatal hernia Comorbidities Providers: Fabián Franks MD Referring MD: Fabián Franks MD (Referring MD), Kera Mcintyre (ReferringMD) Requesting Provider: Medicines: Monitored Anesthesia Care Complications: No immediate complications. Estimated Blood Loss: Estimated blood loss: none. Procedure: After obtaining informed consent, the endoscope was passed under direct vision. Throughout theprocedure, the patient's blood pressure, pulse, and oxygen saturations were monitored continuously. The UpperGI Endoscopy was introduced through the mouth, and advanced to the second part of duodenum. The upperGI endoscopy was accomplished without difficulty. The patient tolerated the procedure well. Findings: A small hiatal hernia was present. The stomach was normal. The examined duodenum was normal. Impression: - Small hiatal hernia. - Normal stomach. - Normal examined duodenum. - No specimens collected. Fabián Franks MD 07/18/2024 2:13:19 PM Number of Addenda: 0 Note Initiated On: 07/18/2024 1:13 PM Fabián Franks MD [employer] PROC[employer] URES Final Result documented in this encounter Visit Diagnoses Diagnosis Hiatal hernia Diaphragmatic hernia without mention of obstruction or gangrene Change in bowel habits Other symptoms involving digestive system Hiatal hernia Diaphragmatic hernia without mention of obstruction or gangrene Change in bowel habits Other symptoms involving digestive system documented in this encounter Admitting Diagnoses Diagnosis Hiatal hernia Diaphragmatic hernia without mention of obstruction or gangrene Change in bowel habits Other symptoms involving digestive system documented in this encounter Care Teams Dielectric Machine Operator Relationship Specialty Start Date End Date Kera Mcintyre PA [address] [place] [id number] PCP - General Physician [place] Department Operator 03/14/23 documented as of this encounter
--- OUTSIDE RECORDS SUMMARY | 2024-08-04 18:28 | XMS_ITS | Encounter Summary ---
Author Organization [facility] Address [address] [place] [address] Care Team Providers Care Golf Manager Name Role Phone Kera Mcintyre Primary Care Provider [phone] Reason for Visit * Auth/Cert (Routine) Specialty Diagnoses / Procedures Referred By Tru wisdom Referred To Contact Diagnoses Hiatal hernia Change in bowel habits Hiatal hernia [K44.9] Change in bowel habits [R19.4] Procedures CO COLONOSCOPY FLX DX W/COLLJ SPEC WHEN PFRMD CO ESOPHAGOGASTRODUODENOSCOPY TRANSORAL DIAGNOSTIC COLONOSCOPY, DIAGNOSTIC, WITH POSSIBLE MODERATE SEDATION UPPER ENDOSCOPY; DIAGNOSTIC WITH BRUSH/WASH (SP) WITH POSSIBLE MODERATE SEDATION Referral ID Status Reason Start Date Expiration Date Visits Re quested Visits Authorized [id number] [phone] Encounter Details Date Type Department Care Team (Late st Contact Info) Description 07/18/2024 1:47 PM EST Anesthesia Event [facility] Endscopy and Minor Procedure [address] [place] [address] Katarzyna Louis [address] [place] [address] Benedict Jacome MD [address] [place] [address] Anesthesia Record Procedure Summary Procedure Name Responsible Anesthesiologist Anesthesia Start Time Anesthesia Stop Time COLONOSCOPY, DIAGNOSTIC, WITH POSSIBLE MODERATE SEDATION (Abdomen) Katarzyna Burger 07/18/24 1347 07/18/24 1410 Events Date Time Event Comment 07/18/2024 1311 1347 An Start 1349 An Start Data 1350 In Room 1352 An Induction The patient was reevaluated immediately before induction of anesthesia. 1352 Anesthesia Ready 1354 Proc Start 1408 an stop data 1408 Proc Fin 1409 Out of Room 1410 Handoff to RN I completed my handoff to the receiving nurse during which we: 1. Identified the patient 2. Identified the responsible provider 3. Reviewed the pertinent medical history 4. Discussed the surgical course 5. Reviewed intra-op anesthesia management and issues during anesthesia 6. Set expectations for post-procedure period 7. Allowed opportunity for questions and acknowledgement of understanding. 1410 An Stop Meds Name Total propofol (DIPRIVAN) 20ML vial 300 mg lidocaine 2% 60 mg midazolam (VERSED) 1 mg/mL injection colleen ution 2 mg lactated Ringer's (LR) infusion 400 mL * Agents Name ETO2 (%) Set FiO2 (O2%) * Blood No blood administrations on file. Lines, Drains, and Airways No LDAs on file. documented in this encounter Social History Tobacco Use Types Packs/Day Years Used Date Smoking Tobacco: Former Cigarettes 0.5 8.2 S tarted: 2017 Smokeless Tobacco: Current Last attempted to quit: 2019 Comments:Vapes nicotine Passive Exposure Comments:Pt vapes nicotine Alcohol Use Standard Drinks/Week Comments Not Currently 0 (1 standard drink = 0.6 oz pur e alcohol) Sober since 08/28/2021 [facility] Utilities Answer Date Recorded In the past 12 months has [employer], gas, oil, or water [employer] threatened to shut off services in your [...] Sign Reading Time Taken Comments Blood Pressure 135/58 07/18/2024 2:06 PM EST Pulse 29 07/18/2024 2:08 PM EST Temperature - - Respiratory Rate 15 07/18/2024 2:09 PM EST Oxygen Saturation 99% 07/18/2024 2:09 PM EST Inhaled Oxygen Concentration - - Weight - - Height - - Body Mass Index - - documented in this encounter OR Notes * Anesthesia Postprocedure Evaluation - Katarzyna Burger - 07/18/2024 2:18 PM EST Anesthesia Post-procedure Evaluation Patient:Roberto Shi : 2000 Date of Procedure: 07/18/2024 Procedure Summary Date: 07/18/24 Room / Location: [facility] / [facility] Endo Anesthesia Start: 1347 Anesthesia Stop: 1410 Procedures: COLONOSCOPY, DIAGNOSTIC, WITH POSSIBLE MODERATE SEDATION (Abdomen) UPPER ENDOSCOPY; DIAGNOSTIC WITH BRUSH/WASH (SP) WITH POSSIBLE MODERATE SEDATION (Esophagus) Diagnosis: Hiatal hernia Change in bowel habits (Hiatal hernia [K44.9]) (Change in bowel habits [R19.4]) Surgeons: Fabián Franks MD Responsible Provider: Katarzyna Burger Anesthesia Type: MAC ASA Status: 3 Last vitals Vitals Value Taken Time BP 119/41 07/18/24 1415 Temp 07/18/24 1418 Pulse 77 07/18/24 1418 Resp 15 07/18/24 1409 SpO2 92 % 07/18/24 1417 Vitals shown include unfiled device data. Anesthesia Post Evaluation Patient location during evaluation: PACU Patient participation: complete - patient participated Level of consciousness: awake Pain management: adequate Airway patency: patent Dental Evaluation: No change Anesthetic complications: no Cardiovascular status: acceptable and stable Respiratory status: acceptable and spontaneous ventilation Hydration status: acceptable Post Operative Nausea and Vomiting: No MIPS#404 Anesthesiology Smoking Abstinence Not current smoker xx404 MIPS#424 Perioperative Temperature Management Anesthesia time was less than 60 minutes (4256F), At least one body temperature greater than 95.8??F/35.5??C achieved within the 30 mins immediately prior to or the 15 minutes immediately following anesthesia end time (G9771) MIPS#430 ADULT Prevention of Post-Operative Nausea & Vomiting (PONV) Patient did not receive an inhalational anesthetic (xx430). Medical reason patient did not receive 2 anti-emetic agents (G9776): TIVA propofol MIPS#477 Multimodal Pain Management Patient was not administered multimodal pain management., No pain anticipated post op (G2149)Optimetrix ID: [id number] * Anesthesia Preprocedure Evaluation - Katarzyna Burger - 07/18/2024 1:11 PM EST Images from the original note were not included. Anesthesia Pre-procedure Evaluation Patient: Roberto Shi : 2000 Date of Procedure: 07/18/2024 Preoperative Diagnosis: Pre-op Diagnosis * Hiatal hernia [K44.9] * Change in bowel habits [R19.4] COLONOSCOPY, DIAGNOSTIC, WITH POSSIBLE MODERATE SEDATION: 34004 (CPT??) UPPER ENDOSCOPY; DIAGNOSTIC WITH BRUSH/WASH (SP) WITH POSSIBLE MODERATE SEDATION: 71823 (CPT??) Surgeon(s): Fabián Franks MD Past Medical / Past Surgical: Past Medical History: Diagnosis Date Anxiety Bipolar 1 disorder (HCC) Depression GERD (gastroesophageal reflux disease) Hidradenitis suppurativa History of pituitary adenoma Hypertension Kyphoscoliosis 10/23/2011 Lordosis (Acquired) 10/23/2011 Migraines Mild intermittent asthma Since childhood PCOS (polycystic ovarian syndrome) POTS (postural orthostatic tachycardia syndrome) 2004 TMJ (temporomandibular joint disorder) Past Surgical History: Procedure Laterality Date TONSILECTOMY Social / Family Histories: Vaping Questions Responses Vaping Use Current Every Day User Nicotine Yes Nicotine Salt Yes Flavored Yes Social History Tobacco Use Smoking status: Former Current packs/day: 0.50 Average packs/day: 0.5 packs/day for 8.1 years (4.1 ttl pk-yrs) Types: Cigarettes Start date: 2016 Smokeless tobacco: Current Last attempt to quit: 2019 Tobacco comments: Vapes nicotine Substance Use Topics Alcohol use: Not Currently Comment: Sober since 08/28/2021 Social History Substance and Sexual Activity Drug Use Not Currently Types: Crack cocaine, Benzodiazepines, Methamphetamines, Methylphenidate Comment: none 08/28/2021 Family History Problem Relation Age of Onset Parkinsonism Mother Thyroid nodules Mother Bening Other Mother suspected CVA Migraines Mother Schizophrenia Father Gallbladder disease Maternal Half-sister TAMIE disease Maternal Half-sister Migraines Maternal Half-sister No Known Problems Paternal Half-sister Gallbladder disease Maternal Half-brother Thyroid cancer Neg Hx Diabetes type II Neg Hx OB History No obstetric history on file. Prior to Admission medications Medication Sig Start Date End Date Taking? Authorizing Provider acetaminophen (TYLENOL) 500 mg tablet Take 2 tablets (1,000 mg total) by mouth every 8 hours as needed for pain or fever. 02/13/22 Estefanía Dhaliwal NP albuterol (PROAIR HFA,VENTOLIN HFA) 90 mcg inhaler Inhale 2 puffs (180 mcg total) by mouth every 6 hours as needed for wheezing or shortness of breath. Use with spacer. 01/06/22 Estefanía Dhaliwal NP busPIRone (BUSPAR) 15 mg tablet Take 1 tablet (15 mg total) by mouth 2 times a day. At 8AM and 8PM 06/06/24 Myesha Olguin MD cephalexin (KEFLEX) 500 mg capsule Take 500 mg by mouth 2 times a day. Unknown Provider, clindamycin (CLEOCIN T) 1 % gel Apply topically to the affected area 2 times a day. Unknown Provider, clonazePAM (KlonoPIN) 0.5 mg tablet Take 1 tablet (0.5 mg total) by mouth daily as needed for anxiety or agitation. 06/06/24 Myesha Olguin MD copper (PARAGARD T 380A INTRAUTERI) 1 each by intrauterine route once. Unknown Provider, diclofenac (VOLTAREN) 1% gel 05/18/22 Unknown Provider, divalproex DR (DEPAKOTE) 125 mg EC tablet Take 1 tablet (125 mg total) by mouth every night. Take along with 1500mg for total daily dose = 1650mg, nightly at 8PM 06/06/24 Myesha Olguin MD divalproex ER (Depakote ER) 500 mg tablet Take 3 tablets (1,500 mg total) by mouth every night. At 8PM 06/06/24 Myesha Olguin MD Flovent HFA 110 mcg/actuation inhaler 03/30/22 Unknown Provider, fluoride, sodium, 1.1 % paste USE IN PLACE OF REGULAR TOOTHPASTE TWICE A DAY. 06/01/23 Unknown Provider, frechilangoumab-vfrm (Ajovy Autoinjector) 225 mg/1.5 mL auto-injector Inject 1.5 mL (225 mg total) under the skin every 30 days. 10/24/22 10/19/23 Garfield Giraldo MD methocarbamoL (ROBAXIN) 500 mg tablet SMARTSI Tablet(s) By Mouth 4 Times Daily PRN 03/26/23 Unknown Provider, mupirocin (BACTROBAN) 2% ointment Apply topically to the affected area 3 times a day. Apply to boils after warm compresses. 01/06/22 Estefanía Dhaliwal NP omeprazole (PriLOSEC) 40 mg capsule TAKE 1 CAPSULE(40 MG) BY MOUTH TWICE DAILY 06/09/24 ARELI Kim ondansetron (ZOFRAN ODT) 4 mg disintegrating tablet Dissolve 1 tablet (4 mg total) in the mouth every 8 hours as needed for nausea or vomiting for up to 15 doses. 02/11/24 Franky Roth MD oxybutynin XL (DITROPAN XL) 10 mg tablet Take 1 tablet (10 mg total) by mouth once a day. 03/14/24 ARELI Kim perphenazine (TRILAFON) 4 mg tablet Take 1 tablet (4 mg total) by mouth 2 times a day. At 8AM and 8PM 06/06/24 Myesha Olguin MD polyethylene glycol (GoLYTELY) solution Take according to instructions provided by physician. Patient not taking: Reported on 05/23/2024 05/06/24 Fabián Franks MD pregabalin (LYRICA) 100 mg capsule Take 200 mg by mouth every night. Unknown Provider, propranoloL (INDERAL) 40 mg tablet Take 1 tablet (40 mg total) by mouth 2 times a day. 01/18/23 Leesa Ritter NP QUEtiapine (SEROquel) 25 mg tablet Take 1 tablet (25 mg total) by mouth nightly. At 8PM 06/06/24 Myesha Olguin MD SUMAtriptan (IMITREX) 50 mg tablet Take 1 tablet (50 mg total) by mouth once as needed for migraine(headache) for up to 1 dose. May repeat one time after 2 hours if needed. 01/11/22 Garfield Giraldo MD Allergies: Patient has no known allergies. Vitals / Weight: not currently . Recent Labs: Latest Ref Rng & Units 01/20/2022 8:47 AM HgbA1c Hemoglobin A1C <5.7 % of total Hgb 4.9 Latest Ref Rng & Units 02/28/2024 2:46 PM CBC WBC 3.4 - 10.8 x10E3/uL 6.3 Hgb 11.1 - 15.9 g/dL 12.3 MCV 79 - 97 fL 91 Plts 150 - 450 x10E3/uL 338 Latest Ref Rng & Units 02/11/2024 8:31 PM Basic Metabolic Panel Sodium 136 - 145 mmol/L 135 Potassium 3.5 - 5.3 mmol/L 3.8 Chloride 98 - 107 mmol/L 104 Carbon Dioxide 22 - 30 mmol/L 28 Glucose 70 - 99 mg/dL 87 Creatinine 0.60 - 1.30 mg/dL 1.20 Calcium 8.5 - 10.1 mg/dL 9.9 EGFR >=60 mL/min/1.73m2 65 Recent EKG: Patient's Hospital Problems: Patient Active Problem List Diagnosis Idiopathic scoliosis and kyphoscoliosis Lordosis (Acquired) Anxiety GERD (gastroesophageal reflux disease) Hiatal hernia Sciatica Chronic radicular pain of lower back Morbid obesity with BMI of 40.0-44.9, adult (HCC) Tobacco use disorder Mild intermittent asthma Intractable chronic migraine without aura and without status migrainosus POTS (postural orthostatic tachycardia syndrome) Borderline personality disorder (CMS/HCC) (HCC) Dissociative convulsions H/O: attempted suicide Kyphosis of thoracic region Nicotine dependence Migraine Irritable bowel syndrome Fibromyalgia Obesity Obstructive sleep apnea syndrome PCOS (polycystic ovarian syndrome) Neuropathy Raynaud's disease Insomnia Acne Hidradenitis suppurativa Housing instability Bipolar II disorder, mild, hypomanic, with mood-congruent psychotic features, in partial remission (HCC) Finding of above normal blood pressure continuous churn buttermaker current use of therapeutic drug Overactive bladder Encounter for IUD insertion Flu vaccine need Need for hepatitis C screening test Asthma Abscess of genital labia Postural urinary incontinence Acute vaginitis Diarrhea Hiatal hernia Change in bowel habits Anesthesia Evaluation Patient summary reviewed and nursing notes reviewed. Anesthesia History: no previous history of anesthetic complications Pulmonary (+) asthma (WELL CONTROLLED), sleep apnea on confirmed and No CPAP, and obstructive sleep apnea risk education given perioperatively. a smoker instructed to abstain from smoking on day of procedure, not an ex-cigarette smoker , vaping user, no marijuana use (-) pneumonia, COPD Cardiovascular (+) hypertension , , , , , , , (-) past ND, dysrhythmias, angina, CHF ROS comment: POTS Neuro/Psych (+) seizures, neuropathy migraine, chronic pain syndrome (on lyirica) psychiatric history, depression, anxiety, bipolar disorder, ETOH, alcohol use remission (-) TIA, CVA GI/Hepatic/Renal (+) hiatal hernia, GERD well controlled, heartburn, liver disease, fatty liver disease, no chronic renal disease, bowel prep (-) hepatitis, renal disease Endo/Other (+) , obesity (-) diabetes mellitus, hypothyroidism, hyperthyroidism, cancer Infectious Disease OB Patient: no History of Present Illness: [id number] Physical Exam Airway Mallampati: II TM distance: >3 FB Neck ROM: full Mouth Opening: good Cardiovascular - normal exam Rhythm: regular Dental - normal exam Pulmonary - normal exam Breath sounds clear to auscultation Abdominal - normal exam Anesthesia Plan ASA 3 Anesthesia Type: MAC Pre-Anesthesia Review by Attending Anesthesiologist: Katarzyna Burger Date: 07/18/2024 Time: 1:11 PM I have interviewed and examined the patient and conducted a pre-anesthesia evaluation that includedreview of the complete medical history, notation of a relevant patient problem list and review of all pertinent preoperative studies, laboratory testing and specialty consultations. An assessment of anesthetic risk including ASA classification and an anesthetic plan have been documented. Original Author: Benedict Jacome MD documented in this encounter Plan of Treatment Upcoming Encounters Date Type Department Care Team (Late st Contact Info) Description 08/28/2024 3:00 PM EDT Follow-Up [facility] GASTROENTEROLOGY, [address] [address] Fabián Franks MD [address] [place] [address] [phone] (Work) 10/03/2024 1:45 PM EDT Follow-Up [facility] [address] [place] [phone] Plastic Tool Maker: Mary Smith MD [address] [place] [address] Ob[place] [address] documented as of this encounter Visit Diagnoses Not on filedocumented in this encounter Administered Medications Inactive Administered Medications - up to 3 most recent administrations Medication Order MAR Action Action Date Dose Rate Site lactated Ringer's (LR) premix infusion intravenous, Continuous PRN, Starting on Sun07/18/24 at 1341, Until Sun07/18/24 at 1410, Anesthesia Intra-op New Bag/Syringe 07/18/2024 1:41 PM EST lidocaine (XYLOCAINE) 2% (20 mg/mL) injection intradermal, As needed, Starting on Sun07/18/24 at 1352, Until Sun07/18/24 at 1410, Anesthesia Intra-op Given 07/18/2024 1:52 PM EST 60 mg midazolam (VERSED) injection intravenous, As needed, Starting on Sun07/18/24 at 1349, Until Sun07/18/24 at 1410, Anesthesia Intra-op Given 07/18/2024 1:49 PM EST 2 mg propofoL (DIPRIVAN) injection intravenous, As needed, Starting on Sun07/18/24 at 1352, Until 07/18/24 at 1410, Anesthesia Intra-op Given 07/18/2024 2:04 PM EST 50 mg Given 07/18/2024 2:01 PM EST 50 mg Given 07/18/2024 1:58 PM EST 50 mg documented in this encounter Care Teams Golf Manager Relationship Specialty Start Date End Date Kera Mcintyre PA [address] [place] [phone] PCP - General Physician Cardiology Technician 03/14/23 documented as of this encounter
--- OUTSIDE RECORDS SUMMARY | 2024-08-04 18:28 | XMS_ITS | Encounter Summary ---
Author Organization [facility] Address [address] [place] [address] Care Team Providers Care Offal Separator Name Role Phone Kera Mcintyre Primary Care Provider [phone] Reason for Visit * Auth/Cert (Routine) Specialty Diagnoses / Procedures Referred By Tru wisdom Referred To Contact Diagnoses Hiatal hernia Change in bowel habits Hiatal hernia [K44.9] Change in bowel habits [R19.4] Procedures PA COLONOSCOPY FLX DX W/COLLJ SPEC WHEN PFRMD PA ESOPHAGOGASTRODUODENOSCOPY TRANSORAL DIAGNOSTIC COLONOSCOPY, DIAGNOSTIC, WITH POSSIBLE MODERATE SEDATION UPPER ENDOSCOPY; DIAGNOSTIC WITH BRUSH/WASH (SP) WITH POSSIBLE MODERATE SEDATION Referral ID Status Reason Start Date Expiration Date Visits Re quested Visits Authorized [id number] [phone] Encounter Details Date Type Department Care Team (Latest Contact Info) Description 07/18/2024 12:52 PM EST - 07/18/2024 2:57 PM [facility] Hospital Encounter [facility] Endscopy and Minor Procedure [address] [place] [address] Fabián Franks MD [address] [place] [address] [phone] (Work) Discharge Disposition: Home or Self Care () Social History Tobacco Use Types Packs/Day Years Used Date Smoking Tobacco: Former Cigarettes 0.5 8.2 S tarted: 2017 Smokeless Tobacco: Current Last attempted to quit: 2019 Comments:Vapes nicotine Passive Exposure Comments:Pt vapes nicotine Alcohol Use Standard Drinks/Week Comments Not Currently 0 (1 standard drink = 0.6 oz pur e alcohol) Sober since 08/28/2021 [facility] Utilities Answer Date Recorded In the [...] through Care Everywhere. * High Fiber Diet ([place]orran) * Hiatal Hernia Discharge Instructions ([place]) documented in this encounter Medications at Time [...] 1:13 PM ESTAssociated Order(s): UPPER GI ENDOSCOPY [facility] Gastroenterology Procedure Date: 07/18/2024 1:13 PM Patient Name: Roberto Shi Date of : 2000 Admit Type: Outpatient Age: 24 Room: [place] [address] Gender: Female Note Status: Finalized Attending MD: Fabián Franks MD Procedure: Upper GI endoscopy Indications: Follow-up of hiatal hernia Comorbidities Providers: Fabián Franks MD Referring MD: Fabián Franks MD (Referring MD), Kera Mcintyre (Referring MD) Requesting Provider: Medicines: Monitored Anesthesia Care Complications: [...] - 07/18/2024 1:13 PM ESTAssociated Order(s): COLONOSCOPY [facility] Gastroenterology Procedure Date: 07/18/2024 1:13 PM Patient Name: Roberto Shi Date of : 2000 Admit Type: Outpatient Age: 24 Room: [place] [address] Gender: Female Note Status: Finalized Attending MD: Fabián Franks MD Procedure: Colonoscopy Indications: Change in bowel habits Comorbidities Providers: Fabián Franks MD Referring MD: Fabián Franks MD (Referring ), Kera Mcintyre (Referring MD) Requesting Provider: Medicines: Monitored Anesthesia Care Complications: [...] Anesthesia Encounters Anesthesia Encounter - Episode ID [id number] Intraprocedure I/O Totals Intake lactated Ringer's (LR) infusion 400.00 mL Total Intake 400 mL Specimens: * No specimens in log * Implants: * No implants in log * Drains: *No LDA information documented for this case* Complications: None Findings: No pathology noted in the colon Small hiatal hernia noted in the upper GI tract Recommendations: Roberto Shi : 2000 CSN: [id number] documented in this encounter Plan of Treatment Upcoming Encounters Date Type Department Care Team (Late st Contact Info) Description 08/28/2024 3:00 PM EDT Follow-[facility], [address] [address] Fabián Franks MD [address] [place] [address] [phone] (Work) 10/03/2024 1:45 PM EDT Follow-Up [facility]ro[facility] [address] [place] [phone] Mri Technician: Mary Smith MD [address] [place] [address] Ob[place]s [place] [address] documented as of this encounter Procedures * Due to [place] state law, this organization might not be sharing negative HIV tests. Procedure Name Priority Date/Time Associated Diagnosis Comments PA ESOPHAGOGASTRODUODENOSCOP Y TRANSORAL DIAGNOSTIC 07/18/2024 1:50 PM EST Hiatal hernia Change in bowel habits PA COLONOSCOPY FLX DX W/NII J SPEC WHEN PFRMD 07/18/2024 1:50 PM EST Hiatal hernia Change in bowel habits HCG QUALITATIVE, , URINE, POC Routine 07/18/2024 1:14 PM EST UPPER GI ENDOSCOPY 07/18/2024 COLONOSCOPY 07/18/2024 documented in this encounter Results * Due to [place] state law, this organization might not be sharing negative HIV tests. * HCG Qualitative, , Urine, POC, interfaced (07/18/2024 1:14 PM EST) HCG Qualitative, Urine, POCT Negative Negative 07/18/2024 1:20 PM EST [facility], POC Comment: Urine HCG testing should be used for early detection only. If the urine HCG result is inconsistent with, or unsupported by, clinical evidence, results should be confirmed with serum HCG method. Urine 07/18/2024 1:14 PM EST 07/18/2024 1:20 PM EST us Fabián Franks MD LAB POCT ORDERAB LES - DEVICE Final Result [facility], POC [address] [place] [address], * COLONOSCOPY (07/18/2024) Narrative Procedure Note Fabián Franks MD - 07/18/2024 1:13 PM EST [facility] Gastroenterology Procedure Date: 07/18/2024 1:13 PM Patient Name: Roberto Shi Date of : 2000 Admit Type: Outpatient Age: 24 Room: [place] [address] Gender: Female Note Status: Finalized Attending MD: [...] Franks MD - 07/18/2024 1:13 PM EST [facility] Gastroenterology Procedure Date: 07/18/2024 1:13 PM Patient Name: Roberto Shi Date of : 2000 Admit Type: Outpatient Age: 24 Room: [place] [address] Gender: Female Note Status: Finalized Attending MD: [...] system documented in this encounter Care Teams Offal Separator Relationship Specialty Start Date End Date Kera Mcintyre PA [address] [place] [phone] PCP - General Physician Pattern Cleaner 03/14/23 documented as of this encounter
--- OUTSIDE RECORDS SUMMARY | 2024-08-04 18:29 | XMS_ITS | Encounter Summary ---
Author Organization [facility] Address [address] [place] [address] Care Team Providers Care Blood Bank Custodian Name Role Phone Kera Mcintyre Primary Care Provider [phone] Encounter Details Date Type Department Care Team (Late st Contact Info) Description 06/27/2024 GoMoto Message [facility] [address] [facility] Family Medicine [address] [place] [address] Elva Valencia LPN follow up with provider Social History Tobacco Use Types Packs/Day Years Used Date Smoking Tobacco: Former Cigarettes 0.5 8.2 S tarted: 2017 Smokeless Tobacco: Current Last attempted to quit: 2019 Comments:Vapes nicotine Passive Exposure Comments:Pt vapes nicotine Alcohol Use Standard Drinks/Week Comments Not Currently 0 (1 standard drink = 0.6 oz pur e alcohol) Sober since 08/28/2021 [facility] Utilities Answer Date Recorded In the past 12 months has th e [employer], gas, oil, or water [employer] threatened to shut off services in your [...] AM EDT documented as of this encounter Plan of Treatment Upcoming Encounters Date Type Department Care Team (Late st Contact Info) Description 08/28/2024 3:00 PM EDT Follow-Up [facility], [address] [facility] [address] [place] [id number] Fabián Franks MD [address] [place] [address] -[phone] (Work) 10/03/2024 1:45 PM EDT Follow-Up [facility] [address] [place] [phone] Senior Net Developer Architect: Mary Smith MD [address] [place] [address] Obstetrics [place] [address] documented as of this encounter Visit Diagnoses Not on filedocumented in this encounter Additional Health Concerns Infection Onset Date Last Indicated Resolved Time COVID-19 - Confirmed infection 05/31/2024 05/31/2024 06/30/2024 10:32 PM EST documented as of this encounter Care Teams Blood Bank Custodian Relationship Specialty Start Date End Date Kera Mcintyre PA [address] [place] [id number] PCP - General Physician Tobacco Grower 03/14/23 documented as of this encounter
--- OUTSIDE RECORDS SUMMARY | 2024-08-04 18:29 | XMS_ITS | Encounter Summary ---
Author Organization [facility] Address [address] [place] [address] Care Team Providers Care Bander And Cellophaner Machine Name Role Phone Kera Mcintyre Primary Care Provider [phone] Encounter Details Date Type Department Care Team (Late st Contact Info) Description 06/12/2024 Telephone [facility] [place] [address] [place] [address] Abbi Diaz RN Social History Tobacco Use Types Packs/Day Years Used Date Smoking Tobacco: Former Cigarettes 0.5 8.2 S tarted: 2017 Smokeless Tobacco: Current Last attempted to quit: 2019 Comments:Vapes nicotine Passive Exposure Comments:Pt vapes nicotine Alcohol Use Standard Drinks/Week Comments Not Currently 0 (1 standard drink = 0.6 oz pur e alcohol) Sober since 08/28/2021 [facility] Utilities Answer Date Recorded In the past 12 months has e [employer], gas, oil, or water [employer] threatened to shut off services in your [...] 6:27 AM EDT Sexual Orientation Bisexual 11/22/2021 3 :04 AM EDT documented as of this encounter Miscellaneous Notes * Telephone Encounter - Abbi Diaz RN - 06/12/2024 8:46 PM EST ----- Message from ARELI Gudino sent at 06/08/2024 4:39 PM EST ----- Regarding: RE: BV Please send MetroGel 0.75% vaginal applicator: 1 applicator (5 g) vaginally nightly for 5 nights aswell as fluconazole 150 mg p.o. once may repeat in 72 hours for total of 2 tablets ----- Message ----- From: Abbi Diaz RN Sent: 06/08/2024 12:03 PM EST To: ARELI Kim; Jose Cueto Ed Lip Review Pool Subject: BV ----- Message ----- From: Lab, Background User Sent: 06/08/2024 11:17 AM EST To: Jose Cueto Ed Results Review Pool documented in this encounter Plan of Treatment Upcoming Encounters Date Type Department Care Team (Late st Contact Info) Description 08/28/2024 3:00 PM EDT Follow-Up [facility], [place] [address] [address] Fabián Franks MD [address] [place] [address] -[phone] (Work) 10/03/2024 1:45 PM EDT Follow-Up [facility]ro[facility]necology Clinic [address] [address] Shoemaking Finisher: Mary Smith MD [address] [facility] Obstetrics [place] [address] documented as of this encounter Visit Diagnoses Not on filedocumented in this encounter Additional Health Concerns Infection Onset Date Last Indicated Resolved Time COVID-19 - Confirmed infection 05/31/2024 05/31/2024 06/30/2024 10:32 PM EST documented as of this encounter Care Teams Bander And Cellophaner Machine Relationship Specialty Start Date End Date Kera Mcintyre PA [address] [place] [id number] PCP - General Physician Product Transfer Pumper 03/14/23 documented as of this encounter
--- OUTSIDE RECORDS SUMMARY | 2024-08-04 18:29 | XMS_ITS | Encounter Summary ---
Author Organization [facility] Address [address] [place] [address] Care Team Providers Care Charge Aide Name Role Phone Kera Mcintyre Primary Care Provider [phone] Encounter Details Date Type Department Care Team (Late st Contact Info) Description 06/26/2024 Telephone [facility] [address] [facility] [address] [place] [address] Kera Mcintyre PA [address] [place], [place] [phone] Social History Tobacco Use Types Packs/Day Years Used Date Smoking Tobacco: Former Cigarettes 0.5 8.2 S tarted: 2017 Smokeless Tobacco: Current Last attempted to quit: 2019 Comments:Vapes nicotine Passive Exposure Comments:Pt vapes nicotine Alcohol Use Standard Drinks/Week Comments Not Currently 0 (1 standard drink = 0.6 oz pur e alcohol) Sober since 08/28/2021 [facility] Utilities Answer Date Recorded In the past 12 months has e electric, gas, oil, or water company [...] Info) Description 08/28/2024 3:00 PM EDT Follow-Up [facility], [address] [address] Fabián Franks MD [address] [place] [phone] (Work) 10/03/2024 1:45 PM EDT Follow-Up [facility]rogynecology Clinic [address] [place] [phone] Woven Label Designer: Mary Smith MD [address] [place] [address] Obstetrics [place] [address] documented as of this encounter Visit Diagnoses Not on filedocumented in this encounter Additional Health Concerns Infection Onset Date Last Indicated Resolved Time COVID-19 - Confirmed infection 05/31/2024 05/31/2024 06/30/2024 10:32 PM EST documented as of this encounter Care Teams Charge Aide Relationship Specialty Start Date End Date Kera Mcintyre PA [address] [place] [id number] PCP - General Physician Business Assistant 03/14/23 documented as of this encounter
--- OUTSIDE RECORDS SUMMARY | 2024-08-04 18:29 | XMS_ITS | Referral Summary ---
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 Date Type Department Care Team Description 07/31/2024 8:15 PM EST - 08/01/2024 11:37 AM EST Emergency [facility] Emergency Department [address] [place] [address] Angus Frey MD Buchwald, Zoltan, MD Tennyson, Joseph C., MD Suicidal ideation (Primary Dx) Discharge Disposition: [facility] () 07/18/2024 2:30 PM EST - 07/18/2024 3:00 PM EST Surgery [facility] Endscopy and Minor Procedure [address] [place] [address] Fabián Franks MD COLONOSCOPY, DIAGNOSTIC, WITH POSSIBLE MODERATE SEDATION [86060 (CPT??)] 07/18/2024 1:47 PM EST Anesthesia Event [facility] Endscopy and Minor Procedure [address] [place] [address] Katarzyna Louis Alexander Y, MD 07/18/2024 12:52 PM EST - 07/18/2024 2:57 PM EST Hospital Encounter [facility] Endscopy and Minor Procedure [address] [place] [address] Fabián Franks MD Discharge Disposition: Home or Self Care () 07/17/2024 Patient Outreach [facility] [address] [address] Madisyn Núñez 07/14/2024 Patient Outreach [facility] [address] [address] Madisyn Núñez 06/30/2024 Telephone [facility] 175 [facility] [address] [place] [address] Kera Mcintyre PA [facility] OUTREACH 06/27/2024 myChart Message [facility] Family Medicine [address] [place] [address] Elva Valencia LPN follow up with provider 06/26/2024 Telephone [facility] 175 [facility] [address] [place] [address] Kera Mcintyre PA [facility] Sick Call 06/26/2024 Telephone [facility] 175 [facility] [address] [place] [address] Kera Mcintyre PA 06/26/2024 Patient Outreach [facility] [address] [address] Madisyn Núñez 06/24/2024 Patient Outreach [facility] [address] [address] Madisyn Núñez 06/19/2024 [facility] [address] [address] Madisyn Núñez Introduction 06/12/2024 Telephone [facility] Urgent [address] [address] Abbi Diaz RN 06/11/2024 Telephone [facility] Emergency Department [address] [place] [address] Abbi Diaz RN 06/10/2024 Telephone [facility] 326 [facility] MEDICINE [address] [place] [address] Kera Mcintyre PA 06/09/2024 Telephone [facility] 529 [facility] Medicine [address] [place] [address] Kera Mcintyre PA 06/09/2024 Refill [facility] 175 [facility] [address] [place] [address] Kera Mcintyre PA 06/06/2024 6:59 PM EST - 06/06/2024 7:55 PM EST Hospital Encounter [facility] [place] [address] [place] [address] Acute vaginitis (Primary Dx); Dysuria Discharge Disposition: Home or Self Care () 06/02/2024 4:59 AM EST - 06/02/2024 7:10 AM EST Emergency [facility] Emergency Department [address] [place] [address] Dian Mendoza MD COVID-19 (Primary Dx) Discharge Disposition: Home or Self Care () 05/23/2024 1:00 PM EST Office Visit [facility] [address] [place] [address] Instructor: Mary Smith MD Overactive bladder (Primary Dx); Dysuria; Incomplete emptying of bladder 05/06/2024 4:40 PM EST Office Visit [facility] [address] [facility] [address] [place] [address] Fabián Franks MD Change in bowel habits (Primary Dx); Irritable bowel syndrome with both constipation and diarrhea; Hiatal hernia from Last 3 Months Allergies No known active allergies Medications * This document contains information received from the source organization and may not represent a complete record from that organization. albuterol (PROAIR HFA,VENTOLIN HFA) 90 mcg inhalerIndications :RAD (reactive airway disease), mild intermittent, uncomplicated Inhale 2 puffs (180 mcg total) by mouth every 6 hours as needed for wheezing or shortness of breath. Use with spacer. 8.5 g 5 01/07/20 22 Active mupirocin (BACTROBAN) 2% ointmentIndication s:Furuncles Apply topically to the affected area 3 times a day. Apply to boils after warm compresses. 60 g 5 01/07/20 22 Active SUMAtriptan (IMITREX) 50 mg tablet Take 1 tablet (50 mg total) by mouth once as needed for migraine (headache) for up to 1 dose. May repeat one time after 2 hours if needed. 27 tablet 3 01/12/20 22 Active acetaminophen (TYLENOL) 500 mg tablet Take 2 tablets (1,000 mg total) by mouth every 8 hours as needed for pain or fever. 100 tablet 1 02/14/20 22 Active fremanezumab-vfrm (Ajovy Autoinjector) 225 mg/1.5 mL auto-injector Inject 1.5 mL (225 mg total) under the skin every 30 days. 1.5 mL 11 10/25/19 23 Active Flovent HFA 110 mcg/actuation inhaler 03/30/20 22 Active diclofenac (VOLTAREN) 1% gel 05/18/20 22 Active propranoloL (INDERAL) 40 mg tabletIndications: Chest pain, unspecified type Take 1 tablet (40 mg total) by mouth 2 times a day. 60 tablet 1 01/19/20 23 Active methocarbamoL (ROBAXIN) 500 mg tablet SMARTSI Tablet(s) By Mouth 4 Times Daily PRN 03/26/20 23 Active fluoride, sodium, 1.1 % paste USE IN PLACE OF REGULAR TOOTHPASTE TWICE A DAY. 06/01/20 23 Active pregabalin (LYRICA) 100 mg capsule Take 200 mg by mouth every night. Active copper (PARAGARD T 380A INTRAUTERI) 1 each by intrauterine route once. Active ondansetron (ZOFRAN ODT) 4 mg disintegrating tablet Dissolve 1 tablet (4 mg total) in the mouth every 8 hours as needed for nausea or vomiting for up to 15 doses. 15 tablet 02/11/20 24 Active oxybutynin XL (DITROPAN XL) 10 mg tablet Take 1 tablet (10 mg total) by mouth once a day. 90 tablet 1 03/14/20 24 Active cephalexin (KEFLEX) 500 mg capsule Take 500 mg by mouth 2 times a day. Active clindamycin (CLEOCIN T) 1 % gel Apply topically to the affected area 2 times a day. Active polyethylene glycol (GoLYTELY) solution Take according to instructions provided by physician. 4000 mL 05/06/20 24 Active QUEtiapine (SEROquel) 25 mg tabletIndications: Bipolar II disorder, mild, hypomanic, with mood-congruent psychotic features, in partial remission (HCC) Take 1 tablet (25 mg total) by mouth nightly. At 8PM 30 tablet 5 06/06/19 25 Active perphenazine (TRILAFON) 4 mg tabletIndications: Bipolar II disorder, mild, hypomanic, with mood-congruent psychotic features, in partial remission (HCC),Anxiety Take 1 tablet (4 mg total) by mouth 2 times a day. At 8AM and 8PM 60 tablet 06/06/[address] (DEPAKOTE) 125 mg EC tabletIndications: Bipolar II disorder, mild, hypomanic, with mood-congruent psychotic features, in partial remission (HCC) Take 1 tablet (125 mg total) by mouth every night. Take along with 1500mg for total daily dose = 1650mg, nightly at 8PM 30 tablet 5 06/06/19 25 Active divalproex ER (Depakote ER) 500 mg tabletIndications: Bipolar II disorder, mild, hypomanic, with mood-congruent psychotic features, in partial remission (HCC),Encounter for long-term (current) use of medications Take 3 tablets (1,500 mg total) by mouth every night. At 8PM 90 tablet 5 06/06/19 25 Active busPIRone (BUSPAR) 15 mg tabletIndications: Anxiety Take 1 tablet (15 mg total) by mouth 2 times a day. At 8AM and 8PM 60 tablet 06/06/19 25 Active clonazePAM (KlonoPIN) 0.5 mg tabletIndications: Anxiety Take 1 tablet (0.5 mg total) by mouth daily as needed for anxiety or agitation. 7 tablet 5 06/06/19 25 Active omeprazole (PriLOSEC) 40 mg capsule TAKE 1 CAPSULE(40 MG) BY MOUTH TWICE DAILY 180 capsule 06/09/19 25 Active tiZANidine (ZANAFLEX) 4 mg tablet Take 4 mg by mouth every 8 hours as needed for muscle spasms. Active rimegepant ODT 75 mg (Nurtec ODT) 75 mg tablet,disintegrat ing disintegrating tablet Dissolve in the mouth. Has not used yet Active multivitamin (Multiple Vitamins) tablet Take 1 tablet by mouth once a day. Active Hospital, Clinic, or Other Facility Administered Medication Ordered Dose Route Frequency Start Date End Date Status sodium chloride 0.9% (NS) bolus 1,000 mLIndications:Nausea and vomiting, unspecified vomiting type,Dizziness,Dehydrati on 1000 mL intravenou Once 02/11/2024 Active Active Problems Problem Noted Date Diagnosed Date Hiatal hernia 05/06/2024 Change in bowel habits 05/06/2024 Diarrhea 03/23/2024 Assessment & Plan (03/23/2024 1:46 PM EDT): Wants to re-establish with GI and referral will be sent to HH. Barnett IBS component to all her symptoms. Discussed trial of metamucil to see if helps firm stools. Acute vaginitis 07/17/2023 Assessment & Plan (07/17/2023 11:40 AM EST): Has had in past and symptoms feel similar on antibiotics currently. Treat with diflucan- speak to pharmacist about any concerns with interaction with her seroquel. Has had in past with no issue and seroquel is low dose so I think she should be fine and reports inserts have not worked in the past. Abscess of genital labia 07/09/2023 Assessment & Plan (07/17/2023 11:38 AM EST): On keflex improved but now back to same size. If fever, increasing size may come in to office for area to be lanced. Otherwise will have looked at by derm on Sunday. Assessment & Plan (07/09/2023 3:15 PM EST): #18 gauge needle used to puncture abscess- scant purulent drainage. She was advised to use warm compresses or soaks to promote drainage and cover with keflex. Postural urinary incontinence 07/09/2023 Assessment & Plan (03/23/2024 1:47 PM EDT): Overactive bladder with postural incontinence- her weight likely contributes as well. Restart oxybutynin at increased dose and refer to urogyn Assessment & Plan (07/09/2023 3:14 PM EST): Ongoing her entire life, incontinence on standing and urgency- improved a little with lower lithium dose. Refer to urogyn. Asthma 06/21/2023 Overactive bladder 03/19/2023 Assessment & Plan (03/19/2023 3:52 PM EDT): Oxybutynin helped patient in past and will start at 5 mg XL a day. Encounter for IUD insertion 03/19/2023 Assessment & Plan (11/28/2023 9:01 PM EDT): Plan: - UPT neg - GC/CT collected - paragard IUD inserted, pt tolerated procedure well - counseled on post-procedure expectations - provided pt w/ card w/ IUD information - counseled on red flag signs to prompt ED visit Flu vaccine need 03/19/2023 Assessment & Plan (03/19/2023 3:54 PM EDT): Next PAP due 06/2028. Obtan labs to include HIV and HEP C screening tests. Need for hepatitis C screening test 03/19/2023 custodial current use of therapeutic drug 2022 Bipolar II disorder, mild, h ypomanic, with mood-congruent psychotic features, in partial remission 09/05/2022 Hidradenitis suppurativa 08/24/2022 Assessment & Plan (07/17/2023 11:37 AM EST): Appt with [facility] on [facility]. Assessment & Plan (07/09/2023 3:16 PM EST): She was given the number to contact [facility] derm today to try to schedule appt and should reach out if no luck. She may benefit from some of the newer treatments of HS. Assessment & Plan (03/19/2023 3:52 PM EDT): Refer to derm for further eval Housing instability 08/24/2022 Neuropathy 05/01/2022 Raynaud's disease 05/01/2022 Insomnia 05/01/2022 Acne 05/01/2022 POTS (postural orthostatic tachycardia syndrome) 02/07/2022 Intractable chronic migraine without aura and without status migrainosus 01/11/2022 Anxiety 01/06/2022 GERD (gastroesophageal reflux disease) Assessment & Plan (03/23/2024 1:46 PM EDT): Continue PPI Hiatal hernia 01/06/2022 Sciatica 01/06/2022 Chronic radicular pain of lower back 01/06/2022 Morbid obesity with BMI of 40.0-44.9, adult 10/2021 Assessment & Plan (03/19/2023 3:51 PM EDT): Pending evaluation at weight loss center. Obtain labs to include lipids and LFTS and glucose. Tobacco use disorder 01/06/2022 Borderline personality disorder (CMS/HCC) 2021 H/O: attempted suicide 11/28/2021 Kyphosis of thoracic region 11/28/2021 Dissociative convulsions 10/18/2021 Nicotine dependence 10/18/2021 Migraine 10/18/2021 Irritable bowel syndrome 10/18/2021 Fibromyalgia 10/18/2021 Obesity 10/18/2021 Obstructive sleep apnea syndrome 10/18/2021 PCOS (polycystic ovarian syndrome) 10/18/2021 Finding of above normal blood pressure Idiopathic scoliosis and kyphoscoliosis 10/23/19 12 Overview (03/04/2022): Diagnosis updated to reflect regulatory changes Lordosis (Acquired) 10/23/2011 Mild intermittent asthma Overview (01/09/2022): Since childhood Resolved Problems Problem Noted Date Diagnosed Date Resolved Date Sleep apnea 01/06/2022 08/30/2022 Fibromyalgia 01/06/2022 03/29/2022 Migraines 01/06/2022 03/29/2022 PCOS (polycystic ovarian syndrome) 01/06/2022 03/29/2022 Pituitary adenoma 01/06/2022 11/28/2022 Chronic low back pain 11/28/20212021 Tachycardia 10/18/2021 08/30/2022 Mild intermittent asthma 10/18/2021 Gastroesophageal reflux disease 10/18/2021 03/29/2022 Depressive disorder 10/18/2021 11/29/19 23 Bipolar disorder 10/18/2021 06/21/2023 Assessment & Plan (03/19/2023 3:52 PM EDT): Seems to be doing well continue with psychiatry. Anxiety 10/18/2021 03/29/2022 Hiatal hernia 10/18/2021 03/29/2022 Pituitary adenoma 10/18/2021 03/29/2022 Postural orthostatic tachycardia syndrome 10/18/2021 03/29/2022 Sciatica 10/18/2021 03/29/2022 Immunizations Immunization Administration Dates Next Due Covid-19 Monovalent Vaccine, Moderna, mRNA, PF 09/16/2020,01/14/2020 Covid-19, Pfizer, mRNA, [place] valent, PF 30 mcg/0.3 mL dose (for ages 12 and older) 06/10/2021 Covid-19, Pfizer, mRNA, Joshua -sucrose Vaccine, PF, 30 mcg/0.3 mL (for age 12 y and up) 03/15/2023 Diphtheria, Tetanus Toxoids and Pertussis Vaccine 07/09/2002,12/26/1999,1998,10/25,1998 Haemophilus Influenzae Type B Vaccine, Conjugate Unspecified Formulation 09/27/1999,1998,1998,08/25 Hep A, Unspecified 11/19/2009 Hep B, Unspecified 03/25/1999,1998, 999 Hepatitis A Vaccine, Pediatric/Adolescent Dosage, 2 Dose Schedule 12/12/2010 Influenza, Injectable, Quadr ivalent, Preservative Free 03/14/2023,04/18/2022 Measles, Mumps, and Rubella Vaccine 07/09/2002,0 09/27/1999 Meningococcal ACWY Vaccine, Unspecified Formulation 11/19/2009 Pneumococcal Conjugate Vacci ne, 7 Valent 07/09/2000 Pneumococcal conjugate PCV20,polysaccharide [id number] conjugate, adjuvant, PF (Prevnar 20) 01/25/2022 Poliovirus Vaccine, Inactivated 07/09/19,12/26/1999,1998,08/25 Tetanus Toxoid, Reduced Diph theria Toxoid, and Acellular Pertussis Vaccine, Adsorbed 01/25/2022,11/19/2009 Varicella Virus Vaccine 11/03/2008,07/01/1999 Social History Tobacco Use Types Packs/Day Years Used Date Smoking Tobacco: Former Cigarettes 0.5 8.2 S tarted: 2017 Smokeless Tobacco: Current Last attempted to quit: 2019 Tobacco Cessation:Ready to Q uit: Not Asked; Counseling Given: Not Answered Comments:Vapes nicotine Passive Exposure Comments:Pt vapes nicotine Alcohol Use Standard Drinks/Week Comments Not Currently 0 (1 standard drink = 0.6 oz pur e alcohol) Sober since 08/28/2021 [facility] Utilities Answer Date Recorded In the past 12 months has e G3, gas, oil, or water [employer] threatened to shut off services in your [...] Orientation Bisexual 11/22/2021 3: 04 AM EDT Last Filed Vital Signs Vital Sign Reading [...] Mass Index 53.09 07/31/2024 7:33 PM EST Plan of Treatment Upcoming Encounters Date Type Department Care Team (Late st Contact Info) Description 08/28/2024 3:00 PM EDT Follow-Up [facility] [address] [address] Fabián Franks MD [address] [place] [address] [phone] (Work) 10/03/2024 1:45 PM EDT Follow-Up [facility] [address] [place] [phone] Instructor: Mary Smith MD [address] [place] [address] [place] [address] Procedures * Due to [place] state law, this organization might not be sharing negative HIV tests. Procedure Name Priority Date/Time Associated Diagnosis Comments VALPROIC ACID LEVEL, TOTAL STAT 07/31 9:36 PM EST HCG, QUALITATIVE, SERUM STAT 07/31/19 9:36 PM EST RAPID COVID-19 RNA FOR SURVEILLANCE (ED ONLY) STAT 07/31/2024 9:[address] ESOPHAGOGASTRODUODENOSCOP Y TRANSORAL DIAGNOSTIC 07/18/2024 1:50 PM EST Hiatal hernia Change in bowel habits CT COLONOSCOPY FLX DX W/NII J SPEC WHEN PFRMD 07/18/2024 1:50 PM EST Hiatal hernia Change in bowel habits HCG QUALITATIVE, , URINE, POC Routine 07/18/2024 1:14 PM EST COLONOSCOPY 07/18/2024 UPPER GI ENDOSCOPY 07/18/2024 VAGINITIS DNA PANEL (JANAE , TRICHOMONAS, GARDNERELLA) Routine 06/06/2024 7:26 PM EST CHLAMYDIA/NEISSERIA GONORRHE A DNA ([facility] ONLY) STAT 06/06/2024 7:26 PM EST URINE CULTURE, ROUTINE STAT 7:26 PM EST POCT AUTOMATED URINALYSIS DIPSTICK Routine 06/06/2024 7:22 PM EST XR CHEST 2 VW STAT 06/02/2024 6:02 AM EST ECG 12-LEAD STAT 06/02/2024 5:03 AM EST HEART & VASCULAR - SCANNED 06/02/2024 URINE CULTURE, SPECIAL Routine 2:20 PM EST Dysuria COMPREHENSIVE METABOLIC PANEL STAT 8:31 PM EDT HCV ANTIBODY RFX TO QUANT PC R - LCP - [id number] Routine 05/14/2023 3:08 PM EST Medicare annual wellness visit, initial Need for hepatitis C screening test HIV AB/P24 AG WITH REFLEX - P - [id number] Routine 05/14/2023 3:08 PM EST Screening for HIV (human immunodeficiency virus) Medicare annual wellness visit, initial IGP,APTIMA HPV,CTNG AGE GDLN - [facility] - [id number] Routine 01/06/2022 Screening for cervical cancer from Last 3 Months or Most Recently Relevant to Health Maintenance Results * Due to [place] state law, this organization might not be sharing negative HIV tests. * hCG, Qualitative, Serum (07/31/2024 9:36 PM EST) HCG Qualitative, Serum Negative Negative [facility] 07/31/2024 10:17 PM EST [facility] Comment: hCG may be negative in early . ??Suggest repeat testing in 2-4 days if clinically indicated. ??The results of this test should be interpreted with the patient's clinical presentation. Blood Structure of peripheral vein / Unknown Venipuncture / Unknown 07/31/2024 9:36 PM EST 07/31/2024 9:39 PM EST Angus Frey MD LAB BLOOD ORDERABLES Final Result [facility] [address] [place] [address], * (ABNORMAL) Valproic Acid Level, Total (07/31/2024 9:36 PM EST) Valproic Acid, Total 49(L) 50 - 100 ug/mL 07/31/2024 10:09 PM EST [facility] Blood Structure of peripheral vein / Unknown Venipuncture / Unknown 07/31/2024 9:36 PM EST 07/31/2024 9:39 PM EST Angus Frey MD LAB BLOOD ORDERABLES Final Result [facility] [address] [place] [address], [place] * Rapid COVID-19 for Surveillance - Psych/Admission (07/31/2024 9:35 PM EST) PCR, SARS CoV-2 RNA Not Detected Not Detected [facility] 07/31/2024 10:14 PM EST [facility] Comment:A Not Detected (Nega tive) test result [...] PM EST 07/31/2024 9:40 PM EST Narrative [facility] - 07/31/2024 10:14 PM EST This test was developed, validated and its performance characteristics determined by [facility] Clinical Labs. This test has not been cleared or approved by the U.S. Food and Drug Administration (FDA). FDA Policy for Diagnostic Tests for Coronavirus Disease-2019 during the Public Health Emergency issued August 18, 2019, is followed. us Angus Frey MD LAB BODY FLUIDS AND STOOLS ORDERABLES Final Result [facility] [address] [place] [address], [place] * HCG Qualitative, , Urine, POC, interfaced (07/18/2024 1:14 PM EST) Pathologist [facility] HCG Qualitative, Urine, POCT Negative Negative 07/18/2024 1:20 PM EST [facility] Comment: Urine HCG testing should be used for early detection only. If the urine HCG result is inconsistent with, or unsupported by, clinical evidence, results should be confirmed with serum HCG method. Urine 07/18/2024 1:14 PM EST 07/18/2024 1:20 PM EST us Fabián Franks MD LAB POCT ORDERAB LES - DEVICE Final Result [facility] [address] [place] [address], * UPPER GI ENDOSCOPY (07/18/2024) Narrative Procedure Note Fabián Franks MD - 07/18/2024 1:13 PM EST [facility] Procedure Date: 07/18/2024 1:13 PM Patient Name: Roberto Shi Date of : 2000 Admit Type: Outpatient Age: 24 Room: [place] [address] Gender: Female Note Status: Finalized Attending MD: [...] MD [facility]RES Final Result * COLONOSCOPY (07/18/2024) Narrative Procedure Note Fabián Franks MD - 07/18/2024 1:13 PM EST [facility] [place] [facility] Procedure Date: 07/18/2024 1:13 PM Patient Name: Roberto Shi Date of : 2000 Admit Type: Outpatient Age: 24 Room: [place] [address] Gender: Female Note Status: Finalized Attending MD: [...] 1:13 PM us Fabián Franks MD [facility] URES Final Result * (ABNORMAL) Vaginitis DNA Panel (Janae, Trichomonas, Gardnerella) (06/06/2024 7:26 PM EST) Pathologist [facility] Trichomonas vaginalis Negative Negative 06/08/2024 11:17 AM EST [facility] Gardnerella vaginalis Positive(A) Negative 06/08/2024 11:17 AM EST [facility] Janae species Positive(A) Negative 06/08/2024 11:17 AM EST [facility] Swab Vaginal structure / Unknown Non-Blood Collection / Unknown 06/06/2024 7:26 PM EST 06/06/2024 7:26 PM EST us Cristiana Warren Ekyesy MEDICAID NURSE LAB BODY FLUIDS AND STOOLS ORDERABLES Final Result Performing Organization Address City/[facility]/ZIP Co de Phone Number [address] [address], * Chlamydia/N Gonorrhoeae DNA (06/06/2024 7:26 PM EST) [facility] C trachomatis DNA Not Detected Not Detected [facility] 06/08/2024 1:23 PM EST [facility] N gonorrhoeae DNA Not Detected Not Detected [facility] GENEXPERT 06/08/2024 1:23 PM EST [facility] Swab Endocervical structure / Unknown Non-Blood Collection / Unknown 06/06/2024 7:26 PM EST 06/06/2024 7:26 PM EST us Amdouglas Sibleyon [employer]were MEDICAID NURSE LAB BODY FLUIDS AND STOOLS ORDERABLES Final Result [facility] [address] [place] [address], [place] * Urine Culture (06/06/2024 7:26 PM EST) Urine Culture Workup 25,000-50 ,000 CFU/mL [facility] 06/09/2024 10:38 AM EST [facility] Comment:Mixed Gram positive organisms with no predominant organism present. Consistent with urogenital contamination after 24 hours. Urine Urine specimen collection, clean catch / Unknown Non-Blood Collection / Unknown 06/06/2024 7:26 PM EST 06/06/2024 7:26 PM EST us Cristiana Lawler NP LAB MICROBIOLOGY - GENERAL ORDERABLES Final Result [address] [address], [place] * (ABNORMAL) POCT Automated Urinalysis Dipstick, interfaced (06/06/2024 7:22 PM EST) Color, POCT Yellow Yellow, Light Yellow, Dark Yellow 06/06/2024 7:24 PM EST [facility] Clarity, POCT Clear Clear 06/06/2024 7:24 PM EST [facility] Glucose, POCT Negative Negative mg/dL 06/06/2024 7:24 PM EST [facility] Bilirubin, POCT Negative Negative 06/06/2024 7:24 PM EST [facility] Ketones, POCT Negative Negative mg/dL 06/06/2024 7:24 PM EST [facility] Specific [place], POCT 1.020 1.005 - 1.030 06/06/2024 7:24 PM EST [facility] Blood, POCT Negative Negative 06/06/2024 7:24 PM EST [facility] pH, POCT 7.0 5.0 - 8.0 06/06/2024 7:24 PM EST [facility] Protein, POCT Negative Negative mg/dL 06/06/2024 7:24 PM EST [facility] Urobilinogen, POCT 0.2 0.2, 1.0 EU/dL 06/06/2024 7:24 PM EST [facility] Nitrite, POCT Negative Negative 06/06/2024 7:24 PM EST [facility] URGENT CARE, POC Leukocyte Esterase, POCT Small(A) Negative 06/06/2024 7:24 PM EST [facility] Urine 06/06/2024 7:22 PM EST 06/06/2024 7:24 PM EST us Doctor Unknown LAB POCT ORDERABLES - DEVICE Fin al Result [facility] [address] [place] [address], [place] * XR Chest 2 vw. Standard (06/02/2024 6:02 AM EST) Anatomical Region Laterality Modality Body Computed Radiogr aphy 06/02/2024 6:21 AM EST Impressions 06/02/2024 6:22 AM EST No acute cardiopulmonary disease. If this radiology report contains a blank impression section, it is an incomplete radiology report. ??Please contact the interpreting radiologist or applicable radiology division as soon as possible to obtain the completed interpretation. ? Workstation ID: [id number] Narrative 06/02/2024 6:22 AM EST COMPARISON: 02/11/2024. FINDINGS: Lines/Tubes/Devices: None. Lungs: The lungs are well-aerated without consolidation or pulmonary edema. Pleura: No pleural effusion or pneumothorax. Heart and Mediastinum: The cardiac and mediastinal contours are normal. Bones: No acute osseous abnormality. Resulting Agency Comment [id number] Procedure Note Ovidio Yap MD - 06/02/2024 COMPARISON: 02/11/2024. FINDINGS: Lines/Tubes/Devices: None. Lungs: The lungs are well-aerated without consolidation or pulmonaryedema. Pleura: No pleural effusion or pneumothorax. Heart and Mediastinum: The cardiac and mediastinal contours are normal. Bones: No acute osseous abnormality. IMPRESSION: No acute cardiopulmonary disease. If this radiology report contains a blank impression section, it is anincomplete radiology report. Please contact the interpreting radiologistor applicable radiology division as soon as possible to obtain thecompleted interpretation. Workstation ID: [id number] us Dian Mendoza MD IMG XR PROCEDURES Final Re sult * ECG 12 lead (06/02/2024 5:03 AM EST) Ventricular Rate EKG 96 BPM MUSE EKG Atrial Rate [address] Interval 148 ms MUSE EKG QRS Interval 88 ms MUSE EKG QT Interval 354 ms MUSE EKG QTC Interval 447 ms MUSE EKG P [place] 48 degrees MUSE EKG R [place] 59 degrees MUSE EKG T Wave [place] 60 degrees MUSE EKG 06/02/2024 5:03 AM EST 06/03/2024 8:21 AM EST Impressions MUSE EKG - 06/03/2024 8:22 AM EST Normal sinus rhythm Normal ECG No previous ECGs available Confirmed by Zachery Jackson ([id number]) on 06/03/2024 8:21:58 AM us Dian Mendoza MD ECG ORDERABLES Final Resu lt MUSE EKG * HEART & VASCULAR - SCANNED (06/02/2024) Anatomical Region Laterality Modality Other us Onbase Scan Rayshawn SCANNED PROCEDURES Final Resu lt * (ABNORMAL) Urine Culture, Special (Cytoscopic/Nephrostomy/Suprapubic Catheter/Chronic Catheter/Straight Catheter) (05/23/2024 2:20 PM EST) Culture Results Updated 4:32 AM EST [facility] Culture Lactobacillus species(A) 05/27/2024 4:32 AM EST [facility] Comment: May represent colonizers from external and internal genitalia. No further testing (including susceptibility) will be performed. 1,000-9,000 CFU/ML of Lactobacillus species Urine Urine specimen obtained via straight catheter / Unknown Non-Blood Collection / Unknown 05/23/2024 2:20 PM EST 05/23/2024 6:47 PM EST Narrative [facility] - 05/27/2024 4:32 AM EST [facility] Received Date: MICRO NUMBER: [id number] SPECIMEN QUALITY: Adequate SOURCE: URINE STRAIGHT CATHETER STATUS: FINAL Dustin Short MD LAB MICROBIOLOGY - GENERAL O RDERABLES Final Result Performing Organization Address City/[facility]/ZIP Co de Phone Number [facility] [address], [place] [address], [place] [phone] [facility] [address], [place] [address], [place] [phone] * (ABNORMAL) Comprehensive Metabolic Panel (02/11/2024 8:31 PM EDT) NA 135(L) 136 - 145 mmol/L 02/11/2024 9:21 PM EDT [facility] K 3.8 3.5 - 5.3 mmol/L 02/11/2024 9:21 PM EDT [facility] Cl 104 98 - 107 mmol/L 02/11/2024 9:21 PM EDT [facility] CO2 28 22 - 30 mmol/L 02/11/2024 9:21 PM EDT [facility] Anion Gap 3(L) 5 - 15 02/11/2024 9:21 PM EDT [facility] Glucose 87 70 - 99 mg/dL 02/11/2024 9:21 PM EDT [facility] Creatinine 1.20 0.60 - 1.30 mg/dL 02/11/2024 9:21 PM EDT [facility] Calcium 9.9 8.5 - 10.1 mg/dL 02/11/2024 9:21 PM EDT [facility] Total Protein 8.1 6.4 - 8.2 g/dL 02/11/2024 9:21 PM EDT [facility] Albumin 3.4 3.4 - 5.0 g/dL 02/11/2024 9:21 PM EDT [facility] Bilirubin, Total 0.5 0.3 - 1.2 mg/dL 02/11/2024 9:21 PM EDT [facility] Alkaline Phosphatase 83 50 - 136 U/L 02/11/2024 9:21 PM EDT [facility] AST 76(H) 15 - 37 U/L 02/11/2024 9:21 PM EDT [facility] ALT 52 12 - 78 U/L 02/11/2024 9:21 PM EDT [facility] BUN 10 7 - 18 mg/dL 02/11/2024 9:21 PM EDT [facility] eGFR 65 >=60 mL/min/1 .73m2 02/11/2024 9:21 PM EDT [facility] Comment:The estimated glomer ular filtration rate (eGFR) is calculated using a new formula developed by the NKF-ASN task force to eliminate race-based correction factors. The new formula uses serum/plasma creatinine, age, and gender to determine eGFR. A value below 60mls/min might indicate kidney disease and will be flagged. For additional information, see Simone et al, Am J Kidney Dis. 2021;79(2):268- 288, A Unifying Approach for GFR estimation: Recommendations of the NKF-ASN Task Force on Reassessing the Inclusion of Race in Diagnosing Kidney Disease . Blood Structure of peripheral vein / Unknown Venipuncture / Unknown 02/11/2024 8:31 PM EDT 02/11/2024 9:03 PM EDT us Franky Roth MD LAB BLOOD ORDERABLES Final Resul t Performing Organization Address City/[facility]/ZIP Co de Phone Number [facility] [address] [place] [address], * HCV Antibody RFX to Quant PCR (05/14/2023 3:08 PM EST) HCV Ab Non Reactive Non Reactive [facility] Blood Structure of peripheral vein / Unknown 05/14/2023 3:08 PM EST 05/14/2023 Narrative [facility] - 05/15/2023 6:07 AM EST Performed at: ??01 - [facility] [address] ??[id number] Grinding Wheel Operator: Key Trevino MD, Phone: ??[phone] us Kera GARCÍA [facility] ORDERABLES Final Res ult [facility] * HIV Ab/p24 Ag with Reflex (05/14/2023 3:08 PM EST) HIV Scr 4th Gen Non Reactive Non Reactive [facility] Comment: HIV Negative HIV-1/HIV-2 antibodies and HIV-1 p24 antigen were NOT detected. There is no laboratory evidence of HIV infection. Blood Structure of peripheral vein / Unknown 05/14/2023 3:08 PM EST 05/14/2023 Narrative [facility] - 05/15/2023 5:06 AM EST Performed at: ??01 - [facility] [address] ??[id number] Grinding Wheel Operator: Key Trevino MD, Phone: ??[phone] us Kera Mcintyre PA AMB [facility] ORDERABLES Final Res ult [facility] * IGP,Aptima HPV,CtNg Age Gdln (01/06/2022) Cervical Cells Cervix uteri structure / Unknown 01/06/2022 us Estefanía Dhaliwal MEDICAID NURSE AMB [facility] ORDERABLES Final Res ult [facility] from Last 3 Months or Most Recently Relevant to Health Maintenance Insurance MEDICARE [facility] MEDICARE Member Subscriber Plan / Payer (Ef fective 2019-Present) Name:Roberto Shi Member ID:[id number] Relation to Subscriber:Self Name:Roberto Shi Subscriber ID:[id number] Payer ID:[id number] Group ID:Not on file Type:Not on file Address: [place] [address] MEDICARE Member Subscriber Plan / Payer (Ef fective 2019-Present) Name:Jose Guadalupe Roberto M Member ID:[id number] Relation to Subscriber:Self Name:[place] Roberto M Subscriber ID:[id number] Payer ID:[id number] Group ID:Not on file Type:Not on file Address: [address] [place] [address] Advance Directives Documents on File Type Date Recorded Patient Octave Board Racker Expl sebastian Health Care Proxy 03/15/2023 3:14 PM [facility] Proxy Care Teams Laundry Machine Operator Relationship Specialty Start Date End Date Kera Mcintyre PA [address] [place] [phone] PCP - General Physician Supervisor [employer] 03/14/23
--- OUTSIDE RECORDS SUMMARY | 2024-08-04 18:29 | XMS_ITS | Encounter Summary ---
Author Organization [facility] Address [address] [place] [address] Care Team Providers Care Automobile Travel Club Counselor Name Role Phone Kera Mcintyre Primary Care Provider [phone] Encounter Details Date Type Department Care Team (Late Contact Info) Description 06/01/2022 Orders Only [facility] [address] [facility] [address] [place] [address] Shannan Quinn MD [address] [place] [address] COVID-19 (Primary Dx) Social History Tobacco Use Types Packs/Day Years Used Date Smoking Tobacco: Former Cigarettes 0.5 8.2 S tarted: 2017 Smokeless Tobacco: Former Quit: 2019 Comments:: Alcohol Use Standard Drinks/Week Comments Not Currently 0 (1 standard drink = 0.6 oz pur e alcohol) Sober since 06/04/2021 Comments No Sex and Gender Information Value Date Recorded Sex Assigned at Female 10/22/2021 6:27 AM EDT Legal Sex Female 5:19 AM EDT Gender Identity Female 10/22/2021 6:27 AM EDT Sexual Orientation Bisexual 11/22/2021 3: 04 AM EDT documented as of this encounter Plan of Treatment Upcoming Encounters Date Type Department Care Team (Late Contact Info) Description 08/28/2024 3:00 PM EDT Follow-Up [facility], [address] [facility] [address] [place] [address] Fabián Franks MD [address] [place] [address] [phone] (Work) 10/03/2024 1:45 PM EDT Follow-Up [facility] [address] [address] Non Clinical Advisor: Mary Smith MD [address] [facility] [place] [address] documented as of this encounter Visit Diagnoses Diagnosis COVID-19- Primary documented in this encounter Additional Health Concerns Infection Onset Date Last Indicated Resolved Time R/O Respiratory Virus Infection 07/23/2022 07/23/2022 11:19 PM EST R/O Influenza 07/23/2022 07/23/2022 07/23/2022 11: 19 PM EST COVID-19 - Suspected infection 07/23/2022 07/23/2022 07/23/2022 11:19 PM EST COVID-19 - Suspected infection 01/29/2024 01/29/2024 01/29/2024 8:26 PM EDT R/O Respiratory Virus Infection 02/11/2024 02/11/2024 7:39 PM EDT R/O Influenza 02/11/2024 02/11/2024 02/11/2024 7:3 9 PM EDT COVID-19 - Suspected infection 02/11/2024 02/11/2024 02/11/2024 7:39 PM EDT COVID-19 - Confirmed infection 05/31/2024 05/31/2024 06/30/2024 10:32 PM EST documented as of this encounter Care Teams Automobile Travel [employer] Counselor Relationship Specialty Start Date End Date Kera Mcintyre PA [address] [place] [phone] PCP - General Physician Industrial Maintenance Mechanic 03/14/23 documented as of this encounter
--- OUTSIDE RECORDS SUMMARY | 2024-08-04 18:29 | XMS_ITS | Data Portability ---
Author Organization [facility] Address [address] [place] [address] Care Team Providers Care Credentialing Assistant Name Role Phone ARELI YUNG RACHAEL Primary Care Provider ARELI YUNG RACHAEL Referring Provider JACKLYN CERON Primary Care Provider YUKI CANO Electro Mechanical Engineer GAURI PEREZ Electro Mechanical Engineer Assessment Encounter Date Assessment Date Assessment LastModified by Organization Details LastModified Time 04/11/2023 04/11/2023 Roberto is a 22-year-old female who is here today as a new patient to establish care. She was seen by Dr. Marrero cardiology who recently moved. She has a history hypertension and tachycardia and possible diagnosis of POTS. [email or web address] Not available 04/11/2023 12:41:34 11/19/2023 11/19/2023 Roberto is a 23-year-old female who is here today for routine follow-up. She was seen by Dr. Marrero previously. She has a history hypertension and tachycardia and possible diagnosis of POTS. [email or web address] Not available 11/19/2023 09:56:14 Plan of Treatment Reminders Order Date Submit Date Provider Last Modified By Organization Details Last Modified Time Details Appointments CARD - Office Visit (20min) 2024 10:50A M Yuki Cano MD Not available Not available Not available Lab urinalysi s, dipstick 2022 023 [facility], [address] [place], [address], 03/06/2023 11:55:12 test, urine 2022 023 [facility], [address] , [place], [address], 03/06/2023 11:53:58 culture, urine 2022 023 [facility], [address] [facility], [place], [address], 03/08/2023 09:55:50 bacterial vaginosis + vaginitis panel, vaginal - NuSwab V6+ Lab Haris: [id number] 2022 023 [facility], [address] [facility], [place], [address], 12/12/2022 08:11:40 test, urine 2022 023 [facility], [address] [facility], [place], [address], 12/06/2022 18:41:13 urinalysi s, dipstick 2022 023 [facility], [address] , [place], [address], 12/06/2022 18:41:39 Referral None recorded. Procedures None recorded. Surgeries None recorded. Imaging electroca rdiogram 2022 023 [facility], [address] [facility], [address], [place], [address], 04/11/2023 16:09:50 Medication Orders propranol ol 40 mg tablet 2022 023 [email or web address] Not available 04/13/2023 09:39:57 Diflucan 150 mg tablet 2022 023 Not available 04/11/2023 11:17:03 Macrobid 100 mg capsule 2022 023 [email or web address] Not available 03/26/2023 17:33:19 Diflucan 150 mg tablet 2022 023 Not available 04/11/2023 11:17:03 Patient TargetsNo targets recorded. Patient Instructions Encounter Date Encounter Id Patient Instructions Last Modified By Organization Details Last Modified Time 03/26/2023 [id number] You have had an Urgent Care Visit which is designed to address acute issues. It does not represent an exhaustive evaluation of your symptom complex, but is an attempt to treat and manage the most likely cause of your most pressing physical issues. If you are not improved in the time frame that we have discussed, please seek the advice of your PCP who is in a position to order further diagnostic testing and possible specialist consultation. If you are rapidly deteriorating despite the treatment recommendations please do not wait to see your PCP and do proceed to the closest ER where a comprehensive evaluation including consideration to lab and other diagnostic testing as well as consultation is more expeditiously accessible. If you were prescribed medications they have been directly submitted to your pharmacy on file. Please make sure you finish all your medications and if you develop major side effects related to them please do stop taking them and check with your PCP to see if you need to get an alternative medication. The radiologist will review your x-rays within the next 24 hours and we will call you with the results if there is any change to your plan of care. [email or web address] Not available 03/26/2023 18:04:05 04/11/2023 [id number] follow up in 6 months I spent a total of {{20 30 50 60 45#}} minutes on the date of encounter, which included: Preparing to see the patient (e.g., review of test results), Obtaining and/or reviewing separately obtained history Performing a medically appropriate exam and/or evaluation Ordering medications, tests, procedures Documenting clinical information in the health record. [email or web address] Not available 04/11/2023 12:42:29 11/19/2023 [id number] I spent a total of {{20 30* 50 60}} minutes on the date of encounter, which included: Preparing to see the patient (e.g., review of test results), Obtaining and/or reviewing separately obtained history Performing a medically appropriate exam and/or evaluation Ordering medications, tests, procedures Documenting clinical information in the health record [email or web address] Not available 11/19/2023 09:53:02 Reason for Referral None Reported. Results Created Date Observation Date Name Description Value Unit Range Abnormal Flag Note LastModifiedBy Organization Detail LastModifiedTime 12/07/1912/12/2022 NUA B VG+, MOMO DA 6SP atopobium vaginae LOW - 0 score . Not Available [facility] [address] [place], [address] 12/12/2022 08:11:40 12/07/1912/12/2022 [facility] 6[facility] bvab 2 LOW - 0 score . Not Available [facility] [address] [place] [address], [address] 12/12/2022 08:11:40 12/07/1912/12/2022 [facility] MOMO DA 6SP megasphaera 1 LOW - 0 score . Calcu late total score by rafaela feng the 3 indiv idual bacte rial vagin osis (BV) marke r score s toget her. Total score is inter prete d as follo ws: Total score 0-1: Indic ates the absen ce of BV. Total score 2: Indet ermin ate for BV. Addit ional clini charlotte data shoul d be evalu ated to estab pia a diagn osis. Total score 3-6: Indic ates the prese nce of BV. This test was devel oped and its perfo rmanc e niko cteri stics deter mined by [facility]. It has not been clear ed or appro nate by the Food and Drug Admin istra tion. Not Available [facility] [address] [place], [address] 12/12/2022 08:11:40 12/07/1912/12/2022 NUA B VG+, MOMO DA 6SP mina albicans, MABEL POSITI VE negati ve abnormal Not Available [facility] [address] [place], [address] 12/12/2022 08:11:40 12/07/19 23 12/12/2022 NUA B VG+, MOMO DA 6SP mina glabrata, MABEL NEGATI VE negati ve Not Available [facility] [address] [place], [address] 12/12/2022 08:11:40 12/07/19 23 12/12/2022 NUA B VG+, MOMO DA 6SP C parapsilosis /tropicalis NEGATI VE negati ve This assay does not diffe renti ate C. tropi calis and C. parap rosario is. Not Available [facility] [address] [place] [address], [address] 12/12/2022 08:11:40 12/07/19 23 12/12/2022 NUA B VG+, MOMO DA 6SP mina lusitaniae, MABEL NEGATI VE negati ve Not Available [facility] [address] [place] [address], [address] 12/12/2022 08:11:40 12/07/19 23 12/12/2022 NUA B VG+, MOMO DA 6SP mina krusei, MABEL NEGATI VE negati ve Not Available [facility] [address] [place] [address], [address] 12/12/2022 08:11:40 12/07/19 23 12/12/2022 NUA B VG+, MOMO DA 6SP trich vag by MABEL NEGATI VE negati ve Not Available [facility] [address] [place] [address], [address] 12/12/2022 08:11:40 12/07/19 23 12/12/2022 NUA B VG+, MOMO DA 6SP chlamydia trachomatis, MABEL NEGATI VE negati ve Not Available [facility] [address] [place] [address], [address] 12/12/2022 08:11:40 12/07/19 23 12/12/2022 NUA B VG+, MOMO DA 6SP neisseria gonorrhoeae, MABEL NEGATI VE negati ve Perfo rmed at: 01 - [facility] [address] [place] [address] Lab Direc tor: Key Trevino MD, Phone : [phone] Not Available [facility] [address] [place] [address], [address] 12/12/2022 08:11:40 12/07/19 23 12/06/2022 urina lysis , dipst ick Urobilinogen normal Not Available [facility] [address] [facility] [place], [address], 12/06/2022 18:21:04 12/07/19 23 12/06/2022 urina lysis , dipst ick Bilirubin negati ve Not Available [facility] [address] [facility] [place], [address], 12/06/2022 18:21:04 12/07/19 23 12/06/2022 urina lysis , dipst ick Protein 30 Not Available [facility] [address] [facility] [place], [address], 12/06/2022 18:21:04 12/07/19 23 12/06/2022 urina lysis , dipst ick Nitrite negati ve Not Available [facility] [address] [facility] [place], [address], 12/06/2022 18:21:04 12/07/19 23 12/06/2022 urina lysis , dipst ick Ketones negati ve Not Available [facility] [address] [facility] [place], [address], 12/06/2022 18:21:04 12/07/19 23 12/06/2022 urina lysis , dipst ick Glucose negati ve Not Available [facility] [address] [facility] [place], [address], 12/06/2022 18:21:04 12/07/19 23 12/06/2022 urina lysis , dipst ick pH 6.5 Not Available [facility] [address] [facility] [place], [address], 12/06/2022 18:21:04 12/07/19 23 12/06/2022 urina lysis , dipst ick Specific Santa 1.010 Not Available [facility] [address] [place], [address], 12/06/2022 18:21:04 12/07/19 23 12/06/2022 urina lysis , dipst ick Leukocytes trace Not Available [facility] [address], [address], 12/06/2022 18:21:04 12/07/19 23 12/06/2022 urina lysis , dipst ick Blood trace Not Available [facility] [address], [address], 12/06/2022 18:21:04 12/07/19 23 12/06/2022 pregn paco test, urine Result negati ve Not Available [facility] [address], [address], 12/06/2022 18:21:03 03/06/20 23 03/06/2023 URINE CULTU RE results ----- ----- ----- ----- ----- ----- ----- ----- ----- ----- ----- ----- ----- ----- ----- ----- ----- ----- -- RUN DATE: 03/08 Abisai sorto *Live * - LAB PAGE 1 RUN TIME: 954 Speci men Inqui ry ----- ----- ----- ----- ----- ----- ----- ----- ----- ----- ----- ----- ----- ----- ----- ----- ----- ----- -- PATIE NT: Kemar Soto ACCT: [id number] [facility] [id number] AGE/S X: 22/F ROOM: RE03/[address]: Johnny SINGLETON : [birth year] BED: DIS: STATU S: PRE CLI TLOC: ----- ----- ----- ----- ----- ----- ----- ----- ----- ----- ----- ----- ----- ----- ----- ----- ----- ----- -- SPEC #: [id number] NII: 03/06 STATU S: COMP REQ #: [id number] RECD: 03/[address]: Johnny SINGLETON SOURC E: Urine CC ENTR: 03/[address]: surekha rosario,adilia DICKINSON C: ORDER ED: Urine Cultu re QUERI ES: ACT WKST: CULT 03/08 #1 ----- ----- ----- ----- ----- ----- ----- ----- ----- ----- ----- ----- ----- ----- ----- ----- ----- ----- -- Proce dure Resul t ----- ----- ----- ----- ----- ----- ----- ----- ----- ----- ----- ----- ----- ----- ----- ----- ----- ----- -- Urine Cultu re Final Organ ism 1 Brown gutierrez Colon y Count >100, 000 CFU/m l 1. Brown barnes coli Targe t Route Dose RX AB Cost M.I.C . IQ ----- - ----- ----- ----- ----- --- ----- - -- ----- - ----- ---- ----- - * Amika raymond S <=2 * Ampic illin S <=2 * Amp/S ul S <=2 * Cefaz stephanie S <=4 * Cefep ame S <=1 * ESBL - NEG * Cefta zidim e S <=1 * Ceftr iaxon e S <=1 * Cipro floxa raymond S <=0.2 5 * Ertap enem S <=0.5 * Genta micin S <=1 * Imipe nem S <=0.2 5 * Levof loxac in S <=0.1 2 * Nitro furan toin S <=16 * Tobra mycin S <=1 * Trime t/Sul fa S <=20 * Pip/T azo S <=4 ----- ----- ----- ----- ----- ----- ----- ----- ----- ----- ----- ----- ----- ----- ----- ----- ----- ----- -- END OF REPOR T Not Available [facility] [address] [place], [address] 03/08/2023 09:55:50 03/06/2003/06/2023 urina lysis , dipst ick Urobilinogen normal Not Available [facility] [address] [place] [address], [address], 03/06/2023 09:11:12 03/06/20 23 03/06/2023 urina lysis , dipst ick Bilirubin negati ve Not Available [facility] [address] [place] [address], [address], 03/06/2023 09:11:12 03/06/20 23 03/06/2023 urina lysis , dipst ick Protein negati ve Not Available [facility] [address] , [place], [address], 03/06/2023 09:11:12 03/06/2003/06/2023 urina lysis , dipst ick Nitrite negati ve Not Available [facility] [address] , [place], [address], 03/06/2023 09:11:12 03/06/2003/06/2023 urina lysis , dipst ick Ketones negati ve Not Available [facility] [address] , [place], [address], 03/06/2023 09:11:12 03/06/2003/06/2023 urina lysis , dipst ick Glucose negati ve Not Available [facility] [address] [place], [address], 03/06/2023 09:11:12 03/06/2003/06/2023 urina lysis , dipst ick pH 6.0 Not Available [facility] [address] [place], [address], 03/06/2023 09:11:12 03/06/2003/06/2023 urina lysis , dipst ick Specific Santa 1.020 Not Available [facility] [address] [place], [address], 03/06/2023 09:11:12 03/06/2003/06/2023 urina lysis , dipst ick Leukocytes trace Not Available [facility] [address] [place], [address], 03/06/2023 09:11:12 03/06/2003/06/2023 urina lysis , dipst ick Blood +++ Not Available [facility] [address] [place], [address], 03/06/2023 09:11:12 03/06/20 23 03/06/2023 pregn paco test, urine Result negati ve Not Available [facility] [address] [place], [address], 03/06/2023 09:11:14 02/03/20 23 01/18/2023 elect rocar diogr am No observ ation record ed. [email or web address] Not Available 06/2022 13:53:43 02/03/20 23 01/01/2023 elect rocar diogr am No observ ation record ed. [email or web address] Not Available 06/2022 13:57:07 04/05/2001/01/2023 elect rocar diogr am No observ ation record ed. [email or web address] Not Available 07/2022 07:23:46 04/11/20 elect rocar diogr am No observ ation record ed. [email or web address] [facility] [address], [address], 04/11/2023 16:09:50 Result Notes None recorded. Problems Name Problem SNOMED Code Status Onset Date Resolution Date Notes Provider Name and Address Organization Details Recorded Time Headache 83505088 Completed 200310/11/2011 Not Available [facility] 3 03:02:11 Acute mucoid otitis media 60508897 Completed 200210/11/2011 Not Available [facility] 3 03:02:11 Cough 72346048 Completed 200210/11/2011 Not Available [facility] 3 03:02:11 Chronic serous otitis media 31655131 Completed 200310/11/2011 Not Available [facility] 3 03:02:11 Nausea and vomiting 95246951 Completed 10/12/2011 Not Available [facility] 3 03:02:11 Increased frequency of urination 130788862 Completed 200310/11/2011 Not Available [facility] 3 03:02:11 Orthostati c hypotensio n 84498381 Active Not Available [facility] 03:02:11 Neck pain 93869935 Completed 200110/11/2011 Not Available [facility] 3 03:02:11 Acute pharyngiti s 410621128 Completed 200110/11/2011 Not Available [facility] 03:02:11 Allergic rhinitis 30421030 Active Not Available [facility] 3 03:02:11 Allergic rhinitis 97845239 Completed 200110/11/2011 Not Available [facility] 3 03:02:11 Tachycardi a 8882908 Active POTS Not Available [facility] 3 03:02:11 Acute upper respirator y infection 05972438 Completed 10/12/2011 Not Available [facility] 3 03:02:11 Acute upper respirator y infection 18451618 Completed 200104/18/2011 Not Available [facility] 3 03:02:11 Injury of knee 681982262 Completed 200510/11/2011 Not Available [facility] 3 03:02:11 Infective otitis externa 49202767 Completed 200310/11/2011 Not Available 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 10/31/2011 Not Available [facility] 3 03:02:11 Low back pain 331265614 Active Not Available [facility] 3 03:02:11 Acne 01504438 Active Not Available [facility] 3 03:02:11 Asthma 263084529 Active Not Available [facility] 3 03:02:11 Streptococ charlotte sore throat 70710707 Completed 200510/11/2011 Not Available [facility] 3 03:02:11 Noninfecti ous gastroente ritis 24474289 Completed 200410/11/2011 Not Available [facility] 3 03:02:11 Vaginitis and vulvovagin itis Completed 200310/11/2011 Not Available [facility] 3 03:02:11 Problem Notes None recorded. Procedures Surgical History Date Name Laterality Status Provider Name and Address Organization Details Recorded Time EKG completed Renny Jacobs NP [address] [facility] [place], [address], [facility] 04/11/2023 12:41:17 1 Youth Pediatric Symptom Checklist (Parent) completed Christina Dutton [facility] 12/12/2010 15:12:06 1 Youth Pediatric Symptom Checklist 12+ (Patient) completed Christina Dutton [facility] 12/12/2010 15:12:06 Imaging Results Imaging Date Name Status LastModified by Organization Details LastModified Time 01/18/2023 electrocardiogram completed Inform ation not available 02/02/2023 13:53:43 01/01/2023 electrocardiogram completed Inform ation not available 02/02/2023 13:57:07 01/01/2023 electrocardiogram completed [email or web address] Inform ation not available 04/05/2023 07:23:46 04/11/2023 electrocardiogram completed [email or web address] [facility] [address], [place], [address], 04/11/2023 16:09:50 Procedure Notes None recorded. Medical Equipment None Reported. Allergies No known drug allergies Medications Name Sig Start Date Stop Date Status Note LastModified by Organization Details LastModified Time quetiapine 25 mg tablet TAKE 1 TABLET BY MOUTH EVERY NIGHT active Not Available Not Available No t Available amoxicillin 500 mg capsule TAKE 1 CAPSULE BY MOUTH EVERY 8 HOURS UNTIL FINISHED 03/26 completed Not Available Not Available Not Available methocarbam ol 500 mg tablet TAKE 2 TABLETS BY MOUTH TWICE DAILY NEEDED active Not Available Not Available No t Available bupropion HCl SR 150 mg tablet,12 hr sustained-r elease TAKE 1 TABLET BY MOUTH TWICE A DAY 03/26 completed Not Available Not Available Not Available doxycycline hyclate 100 mg capsule TAKE 1 CAPSULE BY MOUTH ONCE A DAY 03/26 completed Not Available Not Available Not Available propranolol 80 mg tablet TAKE 1 TABLET BY MOUTH TWICE A DAY 03/26 completed Not Available Not Available Not Available perphenazin e 2 mg tablet Take 2 tablets 3 times a day by oral route. 03/26 completed Not Available Not Available Not Available tizanidine 4 mg tablet TAKE 1 TABLET BY MOUTH TWICE DAILY 03/26 completed Not Available Not Available Not Available fluconazole 150 mg tablet TAKE 1 TABLET BY MOUTH EVERY 72 HOURS FOR 3 DOSES THEN TAKE 1 TABLET BY MOUTH ONCE A WEEK FOR 26 WEEKS active Not Available Not Available No t Available sumatriptan 100 mg tablet TAKE 1 TABLET BY MOUTH AT ONSET OF HEADACHE. MAY REPEAT DOSE IN 2 HOURS IF HEADACHE DOESNT GO AWAY OR COMES BACL active Not Available Not Available No t Available naltrexone 50 mg tablet active Not Available Not Available Not Available clonazepam 0.5 mg tablet active Not Available Not Available Not Available sumatriptan 50 mg tablet 11/18 completed Not Available Not Available Not Available lithium carbonate ER 300 mg tablet,exte nded release TAKE 2 TABLETS BY MOUTH AT BEDTIME active Not Available Not Available No t Available Zyrtec 10 mg tablet Take 1 tablet every day by oral route as needed for 30 days. 03/26 completed Not Available Not Available Not Available omeprazole 40 mg capsule,del ayed release TAKE 1 CAPSULE BY MOUTH EVERY DAY active Not Available Not Available No t Available quetiapine 100 mg tablet 11/18 completed Not Available Not Available Not Available triamcinolo ne acetonide 0.1 % topical cream APPLY TOPICALLY TO THE AFFECTED AREA TWICE DAILY FOR 7 DAYS active Not Available Not Available No t Available lithium carbonate ER 450 mg tablet,exte nded release TAKE 2 TABLETS BY MOUTH EVERY NIGHT active Not Available Not Available No t Available lamotrigine 25 mg tablet TAKE 2 TABLETS (50 MG TOTAL) BY MOUTH ONCE A DAY. 03/26 completed Not Available Not Available Not Available propranolol 40 mg tablet TAKE 1 TABLET BY MOUTH TWICE DAILY 2023 active Not Available Not Available Not Avai lable lorazepam 0.5 mg tablet TAKE 1 TABLET 30 MINUTES BEFORE PROCEDURE AND THEN BRING 1 TABLET TO PROCEDURE active Not Available Not Available No t Available methocarbam ol 750 mg tablet TAKE 1 TABLET BY MOUTH THREE TIMES DAILY NEEDED active Not Available Not Available No t Available clindamycin 1 % topical gel apply a thin layer to skin once daily 03/26 completed Not Available Not Available Not Available trazodone 100 mg tablet active Not Available Not Available Not Available lithium carbonate 600 mg capsule TAKE 1 CAPSULE BY MOUTH EVERY DAY 03/26 completed Not Available Not Available Not Available lithium carbonate 300 mg capsule TAKE 3 CAPSULES BY MOUTH AT BEDTIME 03/26 completed Not Available Not Available Not Available cephalexin 500 mg capsule TAKE 1 CAPSULE BY MOUTH TWICE DAILY active Not Available Not Available No t Available buspirone 10 mg tablet TAKE 1 TABLET BY MOUTH 3 TIMES A DAY. 03/26 completed Not Available Not Available Not Available divalproex ER 500 mg tablet,exte nded release 24 hr TAKE 2 TABLETS BY MOUTH EVERY NIGHT active Not Available Not Available No t Available perphenazin e 4 mg tablet TAKE 1 TABLET BY MOUTH TWICE DAILY active Not Available Not Available No t Available Polytrim 10,000 unit-1 mg/mL eye drops Instill 1 drop into affected eye(s) by ophthalmi c route four times daily for 7 days 2010 active Not Available Not Available Not Avai lable oxybutynin chloride ER 5 mg tablet,exte nded release 24 hr 11/18 completed Not Available Not Available Not Available omeprazole 20 mg capsule,del ayed release TAKE 1 CAPSULE BY MOUTH TWO TIMES A DAY active Not Available Not Available No t Available thiothixene 2 mg capsule TAKE 2 CAPSULES BY MOUTH EVERY 12 HOURS. 03/26 completed Not Available Not Available Not Available Clindagel 1 % topical gel, once daily APPLY A THIN LAYER TO SKIN ONCE DAILY 03/26 completed Not Available Not Available Not Available ibuprofen 600 mg tablet Take 1 tablet 3 times a day by oral route for 30 days. 11/24 completed Not Available Not Available Not Available Retin-A 0.025 % topical gel [facility] 03/26 completed Not Available Not Available Not Available ketoconazol e 2 % topical cream APPLY TOPICALLY TO THE AFFECTED AREA TWICE DAILY FOR 14 DAYS active Not Available Not Available No t Available fludrocorti sone 0.1 mg tablet Take 2 tablets every day by oral route in the morning. 2010 active Not Available Not Available Not Avai lable buspirone 15 mg tablet TAKE 1 TABLET BY MOUTH 2 TIMES A DAY. active Not Available Not Available No t Available Duac 1.2 % (1 % base)-5 % topical gel APPLY TO SKIN AT BEDTIME 03/26 completed Not Available Not Available Not Available divalproex ER 250 mg tablet,exte nded release 24 hr active Not Available Not Available Not Available bupropion HCl XL 300 mg 24 hr tablet, extended release TAKE 1 TABLET (300 MG TOTAL) BY MOUTH EVERY MORNING. active Not Available Not Available No t Available nitrofurant oin monohydrate /macrocryst als 100 mg capsule TAKE 1 CAPSULE BY MOUTH EVERY 12 HOURS FOR 5 DAYS active Not Available Not Available No t Available Zanaflex 4 mg capsule Take 1 capsule every 6 hours by oral route. 03/26 completed Not Available Not Available Not Available pregabalin 25 mg capsule TAKE 2 CAPSULES BY MOUTH TWICE DAILY IN THE MORNING active Not Available Not Available No t Available pregabalin 75 mg capsule TAKE 1 CAPSULE BY MOUTH THREE TIMES DAILY FOR 15 DAYS 03/26 completed Not Available Not Available Not Available pregabalin 100 mg capsule TAKE 2 CAPSULES BY MOUTH EVERY DAY AT BEDTIME active Not Available Not Available No t Available pregabalin 150 mg capsule TAKE 1 CAPSULE BY MOUTH TWICE DAILY 03/26 completed Not Available Not Available Not Available Inderal LA 03/26 completed Not Available Not Available Not Available omeprazole 03/26 completed Not Available Not Available Not Available Wellbutrin SR 03/26 completed Not Available Not Available Not Available Lyrica 03/26 completed Not Available Not Available Not Available sodium fluoride 1.1 % dental paste USE IN PLACE OF REGULAR TOOTHPAST E TWICE A DAY. active Not Available Not Available No t Available ProAir HFA 90 mcg/actuati on aerosol inhaler inhale 2 puffs by mouth every 4 to 6 hours if needed 2010 active Not Available Not Available Not Avai lable Xopenex HFA 45 mcg/actuati on aerosol inhaler INHALE 2 PUFFS EVERY 4 HOURS IF NEEDED active Not Available Not Available No t Available quetiapine 50 mg tablet TAKE 1 TABLET BY MOUTH EVERY DAY AT NIGHT 11/18 completed Not Available Not Available Not Available lithium aspartate 03/26 completed Not Available Not Available Not Available diclofenac 1 % topical gel APPLY 2 GRAMS TO THE AFFECTED AREA(S) BY TOPICAL ROUTE 4 TIMES PER DAY 03/26 completed Not Available Not Available Not Available Botox 200 unit injection active Not Available Not Available No t Available Latuda 40 mg tablet TAKE 1 TABLET BY MOUTH EVERY EVENING WITH FOOD 03/26 completed Not Available Not Available Not Available Ajovy Syringe 225 mg/1.5 mL subcutaneou s INJECT 225 MG SUBCUTANE OUSLY EVERY MONTH IN ABDOMEN, THIGH OR UPPER ARM 03/26 completed Not Available Not Available Not Available Ajovy 225 mg/1.5 mL subcutaneou s auto-inject or ADMINISTE R 1.5 ML UNDER THE SKIN EVERY MONTH active Not Available Not Available No t Available Flowflex COVID-19 Antigen Home Test kit USE DIRECTED 03/26 completed Not Available Not Available Not Available Paxlovid 300 mg (150 mg x 2)-100 mg tablets in a dose pack TAKE 2 TABLETS (NIRMATRE LVIR) AND TAKE 1 TABLET (RITONAVI R) BY MOUTH TWICE A DAY FOR 5 DAYS 03/26 completed Not Available Not Available Not Available Vitals Date Recorded Heart rate Oxygen saturation Oxygen saturation in Arterial blood by Pulse oximetry Body temperature Systolic blood pressure Diastolic blood pressure Provider Name and Address Organization Details Last Updated DateTime 3 65 /min 99 % 99 % 98.3 [degF] 112 mm[Hg] 70 mm[Hg] Farida Bearden MA [facility] 3 18:14:17 Date Recorded Body weight Heart rate Oxygen saturation Oxygen saturation in Arterial blood by Pulse oximetry Body temperature Systolic blood pressure Diastolic blood pressure Provider Name and Address Organization Details Last Updated DateTime 3 943680. 74 g 82 /min 97 % 97 % 98 [degF] 140 mm[Hg] 90 mm[Hg] YOANNA Mosqueda [facility] 3 08:55:19 Date Recorded Heart rate Oxygen saturation Oxygen saturation in Arterial blood by Pulse oximetry Body temperature Systolic blood pressure Diastolic blood pressure Provider Name and Address Organization Details Last Updated DateTime 3 73 /min 98 % 98 % 98.2 [degF] 118 mm[Hg] 80 mm[Hg] Harini Wiley [facility] 3 17:41:47 Date Recorded Body weight Heart rate Oxygen saturation Oxygen saturation in Arterial blood by Pulse oximetry Systolic blood pressure Diastolic blood pressure Systolic blood pressure Diastolic blood pressure Provider Name and Address Organization Details Last Updated DateTime 3 232892. 48 g 69 /min 98 % 98 % 130 mm[Hg] 98 mm[Hg] 122 mm[Hg] 90 mm[Hg] Ashleigh Sumner [facility] 3 11:16:40 Date Recorded Heart rate Oxygen saturation Oxygen saturation in Arterial blood by Pulse oximetry Systolic blood pressure Diastolic blood pressure Provider Name and Address Organization Details Last Updated DateTime 4 75 /min 97 % 97 % 132 mm[Hg] 90 mm[Hg] Kayli Cr [facility] 4 09:13:27 Social History Question Answer Notes LastModified by Organization D etails LastModified Time Child Lives With Mom [email or web address] Informat ion not available 10/31/2011 Sex: Unknown Functional Status None recorded. Mental Status None recorded. Family History Nothing Reported. Medical History No medical history recorded. Gynecological HistoryNo gynecological history recorded. Obstetrics History GPAL:G 0 P 0 0 0 0 Immunizations Vaccine Type Date Status Note Provider Nam e and Address Organization Details Recorded Time Hep A, unspecified formulation 0 completed Not Available [facility] 04/18/2011 05:39:05 Tdap 0 completed Not Available [facility] 04/18/2011 05:39:05 meningococcal ACWY, unspecified formulation 0 completed Not Available [facility] 04/18/2011 05:38:18 Hep A, ped/adol, 2 dose 1 completed Not Available [facility] 06/21/2019 02:10:33 MMR 3 completed Not Available [facility] 04/18/2011 05:39:05 pneumococcal conjugate PCV 7 1 completed Not Available [facility] 04/18/2011 05:39:05 IPV 9 completed Not Available [facility] 04/18/2011 05:39:05 DTP 9 completed Not Available [facility] 04/18/2011 05:39:05 Hep B, unspecified formulation 9 completed Not Available [facility] 04/18/2011 05:39:05 DTP 9 completed Not Available [facility] 04/18/2011 05:39:05 Hep B, unspecified formulation 9 completed Not Available [facility] 04/18/2011 05:39:05 Hep B, unspecified formulation 9 completed Not Available [facility] 04/18/2011 05:39:05 Hib, unspecified formulation 9 completed Not Available [facility] 04/18/2011 05:39:05 IPV 9 completed Not Available [facility] 04/18/2011 05:39:05 DTP 9 completed Not Available [facility] 04/18/2011 05:39:05 IPV 3 completed Not Available [facility] 04/18/2011 05:39:05 Hib, unspecified formulation 9 completed Not Available [facility] 04/18/2011 05:39:05 Hib, unspecified formulation 9 completed Not Available [facility] 04/18/2011 05:39:05 Hib, unspecified formulation 0 completed Not Available [facility] 04/18/2011 05:39:05 varicella 9 completed Not Available [facility] 04/18/2011 05:39:05 IPV 0 completed Not Available [facility] 04/18/2011 05:39:05 DTP 0 completed Not Available [facility] 04/18/2011 05:39:05 varicella 0 completed Not Available [facility] 04/18/2011 05:39:05 MMR 0 completed Not Available [facility] 04/18/2011 05:39:05 DTP 3 completed Not Available [facility] 04/18/2011 05:39:05 Past Encounters Encounter ID Performer Location Encounter Start Date Encounter Closed Date Diagnosis/Indication Diagnosis SNOMED-CT Code Diagnosis ICD10 Code Diagnosis Note [id number] [facility] [place] [id number] 11/13/2001 11:05:04 01/04/2006 01:07:44 [id number] [facility] [place] [id number] 03/18/2002 14:12:31 01/04/2006 01:07:44 [id number] [facility] [place] [id number] 04/16/2002 12:59:57 01/04/2006 01:07:44 [id number] [facility] [place] [id number] 07/09/2002 13:13:43 01/04/2006 01:07:44 [id number] [facility] [place] [address] 11/05/2002 08:35:31 01/04/2006 01:07:44 [id number] [facility] [place] [id number] 11/07/2002 15:26:27 01/04/2006 01:07:44 [id number] [facility] [place] [id number] 03/24/2003 14:04:30 03/24/2003 16:39:34 [id number] [facility] [place] [id number] 07/10/2003 09:06:46 01/04/2006 01:07:44 [id number] [facility] [place] [id number] 10/27/2003 10:46:36 10/27/2003 13:29:31 [facility] [place] [id number] 11/24/2003 14:02:48 11/24/2003 17:07:33 [facility] [place] [id number] 12/22/2003 13:56:28 12/22/2003 15:13:23 [id number] [facility] [place] [address] 01/13/2004 08:50:51 01/13/2004 11:15:24 [id number] [facility] [address] [place] [address] 02/12/2004 13:03:59 02/12/2004 13:59:48 [id number] [facility] L[place] [id number] 7 08/09/2004 14:40:57 08/09/2004 17:08:25 [id number] [facility] [id number] 7 10/25/2004 10:23:35 10/25/2004 13:41:16 [id number] [facility] [address]40-[address] 7 08/18/2005 14:55:39 01/04/2006 02:47:11 [id number] [facility] L[place] [id number] 7 08/27/2003 14:37:32 08/27/2003 16:46:53 [id number] [facility] L[place] [id number] 7 09/28/2003 13:15:28 09/28/2003 17:23:14 [id number] [facility] [place] [id number] 12/11/2003 11:08:52 12/11/2003 13:37:47 [id number] [facility] L[place] [id number] 7 12/06/2005 14:11:22 12/07/2005 09:21:46 [id number] [facility] [place] [id number] 11/03/2004 13:47:52 11/04/2004 08:19:59 [id number] [facility] [place] [id number] 11/17/2004 15:47:41 11/17/2004 17:10:07 [id number] [facility] [place] [id number] 05/09/2010 16:17:59 05/09/2010 16:53:09 [id number] [facility] L[place] [id number] 7 09/06/2010 13:22:37 09/06/2010 15:10:31 [id number] [facility] [address] [place] [id number] 09/26/2010 15:25:35 09/26/2010 16:05:15 [id number] [address] [place] [address] 12/12/2010 15:03:36 12/12/2010 16:03:[id number] [place] [address] 04/06/2011 10:22:13 04/06/2011 11:29:18 [id number] [address] [place] [address] 04/17/2011 14:44:40 04/17/2011 16:13:[id number] [place] [id number] 10/11/2011 11:24:47 10/11/2011 12:31:[id number] [id number] 10/26/2011 09:20:48 10/26/2011 11:09:04 [id number] Celi Vila MD [address] [address] 12/06/2022 18:03:33 12/06/2022 18:46:07 Vaginitis [id number] N76.0 Pt presents with vaginal dischargeV SS, lungs CTA b/l, in nad,, thick white discharge along vaginal vault, no CMT, no cvat, abdomen soft, non tenderNUsw ab pending,ur ine notable for trace blood, trace leuks, HCG negative-S tart on diflucan, discussed of medication and possible medication interactio n-declined STD blood workwarnin g signs of when to RTC discussed. pt in agreement with plan [id number] Celi Vila MD [facility] [address] [place] [address] 03/06/2023 08:28:50 03/06/2023 09:23:23 Urinary symptoms 066213616 R39.9 Pt is a 22 yo female presenting with UTI symptoms.S he is non toxic in appearance , NAD, and vitals are WNL.There is no CVAT, suprapubic TTP.UA is positive for leuks and blood. Urine HCG negative.E xam and hx suggestive of UTI. No sign of pyelonephr itis on exam.Will tx with Macrobid for UTI.Advise PCP f/u with continued/ worsening of symptoms.E D precaution s with fever, severe abdominal/ back pain, vomiting. [id number] Celi Vila MD [facility] [address] [place] [id number] 03/26/2023 17:25:45 03/26/2023 18:04:32 Candidiasis of vagina 63161124 B37.31 Patient is a 22 y.o. female with history of UTI, and yeast infection who presented here today with vaginal discharge, itch, and irritation . Patient denies possibilit y of STD. Refused STD and urine test. Patient reported that she was just tested for STD and been with the same neal. Also just treated for UTI. Patient also reported that she had similar symptoms in the past and was diagnosed for yeast. Will start her on Diflucan. Advised to return to the clinic or follow up with PCP if symptoms has not improve or worsens in 2-3 days. Patient agreed with the plan of care. [id number] Yuki Cano MD [facility] [address] [place] [address] 04/11/2023 10:59:26 04/11/2023 12:56:36 Essential hypertension 39920790 I10 Currently well controlled today. She is on propanolol 40 mg twice a day and will continue with this. Sinus tachycardia 112581 01 R00.0 Heart rate currently well controlled . She has been on propanolol 40 mg twice a day for quite some time now and while on this her symptoms are well controlled . She has a possible diagnosis of POTS and she is aware of the importance of hydration and compressio n stockings if she stands for long periods of time. She has not had any recent episodes. She will continue on propanolol . [id number] Yuki Cano MD [facility] [address] [place] [address] 11/19/2023 09:00:56 11/19/2023 09:42:23 Essential hypertension 36473562 I10 Currently well controlled today. She is on propanolol 40 mg twice a day and will continue with this. Sinus tachycardia 105520 01 R00.0 Heart rate currently well controlled . She has been on propanolol 40 mg twice a day for quite some time now and while on this her symptoms are well controlled . She has a possible diagnosis of POTS and she is aware of the importance of hydration and compressio n stockings if she stands for long periods of time. She has not had any recent episodes. She will continue on propanolol . She will follow-up in 1 year or sooner if need arises. Health Concerns Section Related Observation LastModified by Organization Detai ls LastModified Time None Recorded Concern Status LastModified by Organization Details LastModified Time None Recorded Advance Directives Directive None Recorded Payers Encounter Date Sequence Insurance Name Policy Number Policy Berrios Covered Member ID Berrios Member ID Guarantor Name 12/06/2022 1 [facility] - DOS ON OR AFTER 2022 - MEDICARE [place]VANTAGE [place] (MED[place]ARE REPLACEMENT/AD VANTAGE - PPO) Roberto [place] [id number] [facility] 03/06/2023 1 [facility] [id number] [facility] 03/06/2023 2 [place] [facility] [id number] [facility] 03/26/2023 1 [facility] [id number] [facility] 03/26/2023 2 [place] [facility] [id number] [facility] 04/11/2023 1 MEDICARE B-[place]: [facility] [id number] [facility] 04/11/2023 2 [place] [facility] [id number] [facility] 11/19/2023 1 [place]ICARE B[place] [facility] [id number] [facility] 11/19/2023 2 [place] [id number] [facility] Notes Date Note Type Note Provider Name and Address Organization Details Recorded Time 12/06/2022 text/html 22 year old meir dueñas presents at [facility] [place] [place] for a yeast infection that started on Sunday. Pt states having burning, dryness, itchy and the cottage cheese like discharge. No redness. Tried tea tree oil, vitamin e and externally which has helped. Hx of yeast infections. No concern for STD, currently active with one female. No chance of PG, she has nexplanon. No period on nexplanon. No urgency/frequency. Pt did start taking her snf antibiotic again last week and thinks this triggered it. She has been on/off snf abx, had stopped it for two weeks and then started doxycycline last week for HS.She does note new female partner. Celi Vila MD [address] [place] [address], [phone], [facility] 12/07/2022 22:36:42 03/06/2023 text/html Pt presents to [facility] for a UTI, burning and freaking urinating would like a test as well. Pt has been on Nexplanon for a year and is having spotting and cramping. Pt is a 22 yo female presenting with c/o UTI symptoms since last night.Burning, frequency, urgency.Denies fevers, vomiting, back pain.Some abdominal. Celi Vila MD [address] [place], [phone], [facility] 03/06/2023 22:38:23 03/26/2023 text/html DysuriaReported bypatient.Quality:itc ben, irritated, vaginal discharge Duration:constant Severity:mild Context:no prior history of STDs; no known exposure to STD; history of urine cultures/antibiotic treatment Associated Symptoms:no fever;vaginal discharge Modifying factors:nothing gives relief; nothing makes it worse 22 yr old female presents today c/o possible yeast infection. Patient states they just had a yeast infection recently and then a UTI. Patient is having discharge, itching and irritation.-ERAN Vila MD [address] [place] [address], [phone], [facility] 03/27/2023 18:08:55 04/11/2023 text/html Roberto is a 22-year-old female who is here today as a new patient to establish care. She was previously followed at [facility] with Dr. Marrero for management of hypertension and tachycardia. She has a possible diagnosis of POTS that she states was diagnosed when she was [age] years old in [place] with a positive tilt table test. She is referring her care here as her manager battery has left the area. She also has a history of anxiety and migraines and bipolar disorder which is well controlled. Patient states that she has been on propanolol 40 mg twice a day for quite some time now to manage her hypertension and tachycardia. This has been working well for her. Since she has been unable to contact her prior manager battery she was unable to get a refill of propranolol. She went to the ER complaining of chest pain and her blood pressure ended up being 200/100 and she was tachycardic. They restarted her propanolol her symptoms did resolve. She does admit that she has occasional episodes of shortness of breath and chest pain but she attributes this to anxiety. She does have a possible history of Tourette's syndrome and gets occasional tics where she tensed up. She also feels that this can contribute to her discomfort. Overall she feels she is doing well. 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 She denies any alcohol use and no illicit drug use. She does admit to vaping. 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 Yuki Cano MD [address] [place] [address], [phone], [facility] 04/13/2023 09:39:59 11/19/2023 text/html Roberto is a 23-year-old female who is here today for routine 6-month follow-up. She was previously followed at [facility] with Dr. Marrero for management of hypertension and tachycardia. She has a possible diagnosis of POTS that she states was diagnosed when she was [age] years old in [place] with a positive tilt table test. She also has a history of anxiety and migraines and bipolar disorder which is well controlled.Patient states that she has been on propanolol 40 mg twice a day for quite some time now to manage her hypertension and tachycardia. This has been working well for her. Overall she feels she is doing well. 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 She denies any alcohol use and no illicit drug use. She does admit to vaping. 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 Yuki Cano MD [address] [place] [address], [phone], [facility] 11/20/2023 09:24:29 OBGyn Episode No OBEpisode recorded.
--- OUTSIDE RECORDS SUMMARY | 2024-08-04 18:29 | XMS_ITS | Patient Health Record ---
Author Organization [facility] Address [address] [place], [place] [id number] Care Team Providers Care Zipper Measurer Name Role Phone Juan Mesa Unavailable [phone] Allergies No Known Allergies Reason For Referral No Information Medications Medication SIG (Take, Route, Frequency, Duration) Notes Start Date End Date Status Buspar 5 mg 1 daily at bedtime by mouth Active Inderal LA 80 MG 1 capsule Orally Onc e a day for 30 day(s) Active Cypress Carbonate 600 MG 1 capsule Orall y Once a day for 30 day(s) Active Perphenazine-Amitriptylin e 2-10 MG 1 tablet Orally Twice a day for 30 day(s) Active Wellbutrin Active Albuterol Sulfate (sensor) 108 (90 Base) MCG/ACT 1 puff as needed Inhalation every 4 hrs Active Pregabalin 75 MG Oral for 28 A ctive Mupirocin 2 % 1 application Thread Grinder ally Twice a day for 5 day(s) Active tiZANidine HCl 4 MG Oral for 28 Active Ajovy 225 MG/1.5ML 1.5 mL Subcutaneous for 30 day(s) Active Omeprazole 20 MG Oral for 30 A ctive Qvar 40 MCG/ACT 1 puff Inhalation Tw ice a day for 30 days 02/27/2022 Active Flovent HFA 110 MCG/ACT 2 puffs Inhalati on Twice a day for 30 days 03/18/2022 Active CPAP DX: ALLI G47.33 as directed SETTINGS : AUTO CPAP 5-15 CM H20 WITH FFM EPR-3 During sleep nightly for the treatment of sleep apnea for 90 days 03/16/2022 Active Zanaflex 4 MG 1 tablet as needed O rally Three times a day Active Lyrica 75 MG 1 capsule Orally Twi ce a day Active SEROquel 50 MG 1 tablet at bedtime Orally Once a day for 30 day(s) Active Problems Problem Type SNOMED Code ICD Code Onset Dates Problem Status W/U Status Risk Notes Problem Obstructive sleep apnea syndrome (10854059) ALLI (obstructive sleep apnea) (G47.33) Active confirmed Problem Chronic fatigue syndrome (13783818) Chronic fatigue (R53.82) Active confirmed Problem 010749617 GERD without esophagitis (K21.9) Active confirmed Problem 093110258 Insomnia, unspecified type (G47.00) Active confirmed Problem 127212821 Mild persistent asthma in adult without complication (J45.30) Active confirmed Plan Of Treatment Pending Test Test Name Order Date Home sleep study 02/27/2022 Insurance Providers Payer Name Payer Address Payer Phone Subscriber Number Group Number Insured Name Patient Relationship to Insured Coverage Start Date Coverage End Date Medicare [address] [place] [phone] [id number] Roberto Shi Self - patient is the insured Medicaid [address] [place] [phone] [id number] Roberto Shi Self - patient is the insured Medical (General) History Medical History History ICD Code anxiety Bipolar 1 disorder Depression GERD Kyphoscoliosis PCOS Asthma Postural orthostatic tachycardic syndrom e (POTS) Migraine Pituitary microadenoma ETOH abuse Substance abuse-sober since 2020 Smoker ALLI Surgical History Surgery Date(Month/Year) tonsillectomy
--- OUTSIDE RECORDS SUMMARY | 2024-08-04 18:29 | XMS_ITS | Encounter Summary ---
Author Organization [facility] Address [address] [place] [address] Care Team Providers Care Clean Up Supervisor Name Role Phone Kera Mcintyre Primary Care Provider Encounter Details Date Type Department Care Team (Late st Contact Info) Description 06/11/2024 Telephone [facility] Emergency Department [address] [place] [address] Abbi Diaz RN Social History Tobacco Use Types Packs/Day Years Used Date Smoking Tobacco: Former Cigarettes 0.5 8.2 S tarted: 2017 Smokeless Tobacco: Current Last attempted to quit: 2019 Comments:Vapes nicotine Passive Exposure Comments:Pt vapes nicotine Alcohol Use Standard Drinks/Week Comments Not Currently 0 (1 standard drink = 0.6 oz pur e alcohol) Sober since 08/28/2021 [facility] Utilities Answer Date Recorded In the past 12 months has th e [employer], gas, oil, or water [employer] threatened to shut off services in your [...] Telephone Encounter - Abbi Diaz RN - 06/11/2024 10:18 AM EST ----- Message from ARELI Gudino sent [...] To: Jose Cueto Ed Results Review Pool * Telephone Encounter - Abbi Diaz RN - 06/11/2024 10:02 AM EST ----- Message from ARELI Gudino sent [...] 12:03 PM EST To: ARELI Kim; Jose Ed Lip Review Pool Subject: BV ----- Message ----- From: Lab, Background User Sent: 06/08/2024 11:17 AM EST To: Jose Cueto Ed Results Review Pool documented in this encounter Plan of Treatment Upcoming Encounters Date Type Department Care Team (Late st Contact Info) Description 08/28/2024 3:00 PM EDT Follow-Up [facility], [address] [address] Fabián Franks MD [address] [place] [address] -[phone] (Work) 10/03/2024 1:45 PM EDT Follow-Up [facility] [address] [address] Bingo Attendant: Mary Smith MD [address] [place] [address] Obstetrics [place] [address] documented as of this encounter Visit Diagnoses Not on filedocumented in this encounter Additional Health Concerns Infection Onset Date Last Indicated Resolved Time COVID-19 - Confirmed infection 05/31/2024 05/31/2024 06/30/2024 10:32 PM EST documented as of this encounter Care Teams Clean Up Supervisor Relationship Specialty Start Date End Date Kera Mcintyre PA [address] [place] [address] [phone] PCP - General Physician Audio Video Mechanic 03/14/23 documented as of this encounter
--- OUTSIDE RECORDS SUMMARY | 2024-08-04 18:29 | XMS_ITS | Encounter Summary ---
Author Organization [facility] Address [address] [place] [address] Care Team Providers Care Agency Recruiter Name Role Phone Kera Mcintyre Primary Care Provider [phone] Encounter Details Date Type Department Care Team (Late st Contact Info) Description 01/16/2022 Telephone [facility] [address] [place] [address] Estefanía Dhaliwal, ADINA [address] [place] [address] Social History Tobacco Use Types Packs/Day Years Used Date Smoking Tobacco: Every Day Cigarettes 0.5 8.2 Started: 2016 Smokeless Tobacco: Never Comments:: Alcohol Use Standard Drinks/Week Comments Not [...] encounter Miscellaneous Notes * Telephone Encounter - Janet Santos MA - 01/17/2022 4:28 PM EDT All pt 1 has been authorized * Telephone Encounter - Erika Khan - 01/16/2022 2:40 PM EDT Verify patients home/pickup driver address;[address] [place] [address] Name of provider/hospital they are going to; [facility] address of provider;[address] NPI;[id number] Date of appointment;01/27/2022 How many visits they will need for the year;6 Will they have a business services representative/escort;NO Service animal;NO Are they in a wheelchair;NO Do they carry self-administered oxygen;NO Is member able to travel curb to curb;YES Verify patients home/pickup driver address;[address] [place] [address] Name of provider/hospital they are going to; [facility] address of provider;[address] [place] [address] NPI;[id number] Date of appointment;01/27/2022 How many visits they will need for the year;6 Will they have a business services representative/escort;NO Service animal;NO Are they in a wheelchair;NO Do they carry self-administered oxygen;NO Is member able to travel curb to curb;YES Verify patients home/pickup driver address;[address] [place] [address] Name of provider/hospital they are going to; [facility] address of provider;[address] [facility] NPI;[id number] Date of appointment;01/27/2022 How many visits they will need for the year;6 Will they have a business services representative/escort;NO Service animal;NO Are they in a wheelchair;NO Do they carry self-administered oxygen;NO Is member able to travel curb to curb;YES documented in this encounter Plan of Treatment Upcoming Encounters Date Type Department Care Team (Late st Contact Info) Description 08/28/2024 3:00 PM EDT Follow-Up [facility] [address] [address] Fabián Franks MD 50 [place] [address] -[phone] (Work) 10/03/2024 1:45 PM EDT Follow-Up [facility] [address] [place] [phone] Administrative Accountant: Mary Smith MD 119 [facility] Obstetric[place] [address] documented as of this encounter Visit Diagnoses [...] documented as of this encounter Care Teams Agency Recruiter Relationship Specialty Start Date End Date Kera Mcintyre PA [address] [place] [phone] PCP - General Physician Trailhead Construction Worker 03/14/23 documented as of this encounter
--- OUTSIDE RECORDS SUMMARY | 2024-08-04 18:29 | XMS_ITS | Encounter Summary ---
Author Organization [facility] Address [address] [place] [address] Care Team Providers Care Detective Bowling Alley Name Role Phone Kera Mcintyre Primary Care Provider [phone] Encounter Details Date Type Department Care Team (Late Contact Info) Description 02/12/2022 [employer] Message [facility] 130 [facility] [address] [place] [address] Estefanía Dhaliwal NP [address] [place] [address] Fibromyalgia pain Social History Tobacco Use Types Packs/Day Years Used Date Smoking Tobacco: Every Day Cigarettes 0.5 8.2 Started: 2017 Smokeless Tobacco: Former Quit: 2019 Comments:: [...] 3:00 PM EDT Follow-Up [facility], 50 [facility] [address] [place] [address] Fabián Franks MD [address] [place] [phone] (Work) 10/03/2024 1:45 PM EDT Follow-Up [facility] [address] [place] [address] Laborer Shaft S[place]: Mary Smith MD [address] [facility] Obstetrics [place] [address] documented as of this encounter Visit Diagnoses [...] documented as of this encounter Care Teams Detective Bowling Alley Relationship Specialty Start Date End Date Kera Mcintyre PA [address] [place] [phone] PCP - General Physician Public Information Specialist 03/14/23 documented as of this encounter
--- OUTSIDE RECORDS SUMMARY | 2024-08-04 18:29 | XMS_ITS | Clinical Summary ---
Author Organization [facility] Address [address] [place] [address] Care Team Providers Care Child Care Counselor Name Role Phone Unavailable Primary Care Provider Unavailabl e Social History Tobacco Use Types Packs/Day Years Used Date Smoking Tobacco: Never Assessed Comments Unknown Sex and Gender Information Value Date Recorded Sex Assigned at Not on file Legal Sex Female 7:21 PM EST Gender Identity Not on file Sexual Orientation Not on file Plan of Treatment Health Maintenance Due Date Last Done Comments Depression: Screening Annual ly using PHQ-2/9 in Adults 18 yrs or above (or HM Modifier)([facility]) 2016 Hepatitis C Virus Infection in Adolescents and Adults: Screening (or Modifier) ([facility]) 2016 SDOH Screening Reminder: Lillian elisha for all adults ([facility]) 2016 Tobacco Smoking Cessation: i n Adults excluding Women: Behavioral and Pharmacotherapy Interventions ([facility]) 2016 DTaP/Tdap/Td Vaccines ([facility]) (1 - Tdap) 2017 Lipid Screening: Once for Wo men aged 20 to 45 yrs ([facility]) 2018 Cervical Cancer Screenin 1-65 yrs of age (or Modifier) 2019 Cervical Cancer Screening: P ap every 3 yrs pts age 21-65 2019 Cervical Cancer: Pap Screeni ng with Modifier timing ([facility]) 2019 Cervical Cancer: hrHPV alone or with cotesting Pap for Pts 30-65yrs screening every 5yrs ([facility]) 2019 Flu Vaccination: Yearly for ages 18mos through 64 years (or Modifier)([facility]) 01/03/2024 COVID-19 Vaccine Screening: Initial Series and Booster Status ([facility]) (2023- season) 2024 Zoster/Shingles Vaccine Seri es Screening: Adults aged 18+ yrs (or HM Modifiers)([facility]) (1 of 2) 2048 Pneumococcal Vaccination Scr eening: Pts 0-19 & 19-64 yrs of age ([facility]) Aged Out No longer eligible based on patient's age to complete this topic Medical Devices Not on file Insurance [facility] [place] [address] [facility] [place] [id number]
--- OUTSIDE RECORDS SUMMARY | 2024-08-04 18:29 | XMS_ITS | Clinical Summary ---
Author Organization [facility] Address [address] [place] [address] Care Team Providers Care Lace Mender Name Role Phone Kera Mcintyre Primary Care Provider [phone] Allergies No known active allergies Medications * [...] of breath. Use with spacer. 8.5 g 01/07/20 22 Active mupirocin (BACTROBAN) 2% ointmentIndication s:Furuncles Apply topically to the affected area 3 times a day. Apply to boils after warm compresses. 60 g 01/07/20 22 Active SUMAtriptan (IMITREX) 50 mg [...] At 8AM and 8PM 60 tablet 5 06/06/[address] (DEPAKOTE) 125 [...] mouth every night. At 8PM 90 tablet 06/06/19 25 Active busPIRone (BUSPAR) 15 mg tabletIndications: Anxiety Take 1 tablet (15 mg total) by mouth 2 times a day. At 8AM and 8PM 60 tablet 06/06/19 25 Active clonazePAM (KlonoPIN) 0.5 mg tabletIndications: Anxiety Take 1 tablet (0.5 mg total) by mouth daily as needed for anxiety or agitation. 7 tablet 06/06/19 25 Active omeprazole (PriLOSEC) 40 mg [...] Need for hepatitis C screening test 03/19/2023 detention current use of therapeutic drug 2022 Bipolar II disorder, mild, h ypomanic, with mood-congruent psychotic features, in partial remission 09/05/2022 Hidradenitis suppurativa 08/24/2022 Assessment & Plan (07/17/2023 11:37 AM EST): Appt with A/P derm on Sunday. Assessment & Plan (07/09/2023 3:16 PM EST): [...] disease 10/18/2021 03/29/2022 Depressive disorder 10/18/2021 11/29/19 Bipolar disorder 10/18/2021 06/21/2023 Assessment & Plan (03/19/2023 3:52 PM EDT): Seems to be doing well continue with psychiatry. Anxiety 10/18/2021 03/29/2022 Hiatal hernia 10/18/2021 03/29/2022 Pituitary adenoma 10/18/2021 03/29/2022 Postural orthostatic tachycardia syndrome 10/18/2021 03/29/2022 Sciatica 10/18/2021 03/29/2022 Encounters * This document contains information received from the source organization and may not represent a complete record from that organization. Date Type Department Care Team Description 07/31/2024 8:15 PM EST - 08/01/2024 11:[address] [facility] Emergency Department [address] [place] [address] Angus Frey MD Buchwald, Zoltan, MD Tennyson, Joseph C., MD Suicidal ideation (Primary Dx) [facility]charge [facility] () 07/18/2024 2:30 PM EST - 07/18/2024 3:00 PM EST Surgery [facility] on [facility] Endscopy and Minor Procedure [address] [place] [address] Fabián Franks MD COLONOSCOPY, DIAGNOSTIC, WITH POSSIBLE MODERATE SEDATION [[id number] (CPT??)] 07/18/2024 1:47 PM EST Anesthesia Event [facility] on [facility] Endscopy and Minor Procedure [address] [place] [address] Katarzyna Louis Alexander Y, MD 07/18/2024 12:52 PM EST - 07/18/2024 2:57 PM EST Hospital Encounter [facility] on [facility] Endscopy and Minor Procedure [address] [place] [address] Fabián Franks MD Discharge Disposition: Home or Self Care () 07/17/2024 Patient Outreach [facility] OCI [address] [address] Madisyn Núñez 07/14/2024 Patient Outreach [facility] [address] [address] Madisyn Núñez 06/30/[address] [place] [address] Kera Mcintyre PA [facility]ALTH OUTREACH 06/27/2024 myChart Message [facility] 529 [facility] Medicine 9 [facility] [place] [address] Elva Valencia LPN follow up with provider 06/26/2024 Telephone [facility] [place] [address] Kera Mcintyre PA [facility] Sick Call 06/26/2024 Telephone [facility] 175 [place] [address] Kera Mcintyre PA 06/26/2024 Patient Outreach [facility] [address] [address] Madisyn Núñez D 06/24/2024 Patient Outreach [facility] OC [address] [address] Jose Núñezice D 06/19/2024 [facility] [address] [address] Jose Núñezice D Introduction 06/12/2024 Telephone [facility] on [facility] [address] [address] Abbi Diaz RN 06/11/2024 Telephone [facility] on [facility] Emergency Department [address] [place] [address] Abbi Diaz, RN 06/10/2024 Telephone [facility] [address] [facility] [address] [place] [address] Kera Mcintyre PA 06/09/2024 Telephone [facility] 529 [facility] Medicine 9 [facility] [place] [address] Kera Mcintyre PA 06/09/2024 Refill [facility] [address] [place] [address] Kera Mcintyre PA 06/06/2024 6:59 PM EST - 06/06/2024 7:55 PM EST Hospital Encounter [facility] [place] [address] [place] [address] Acute vaginitis (Primary Dx); Dysuria Discharge Disposition: Home or Self Care () 06/02/2024 4:59 AM EST - 06/02/2024 7:10 AM EST Emergency [facility] Emergency Department [address] [place] [address] Dian Mendoza MD COVID-19 (Primary Dx) Discharge Disposition: Home or Self Care () 05/23/2024 1:00 PM EST Office Visit [facility] [address] [place] [address] Pipe Roller: Mary Smith MD Overactive bladder (Primary Dx); Dysuria; Incomplete emptying of bladder 05/06/2024 4:40 PM EST Office Visit [facility] GASTR[facility]OLOGY, 50 [facility] [address] [place] [address] Fabián Franks MD Change in bowel habits (Primary Dx); Irritable bowel syndrome with both constipation and diarrhea; Hiatal hernia from Last 3 Months Immunizations Immunization Administration Dates Next Due Covid-19 Monovalent Vaccine, Moderna, mRNA, PF 09/16/2020,01/14/2020 Covid-19, Pfizer, mRNA, Mcduffie valent, PF 30 mcg/0.3 mL dose (for [...] ne, 7 Valent 07/09/2000 Pneumococcal conjugate PCV20,polysaccharide [id number] conjugate, adjuvant, PF (Prevnar 20) 01/25/2022 Poliovirus Vaccine, Inactivated 07/09/19 03,12/26/1999,1998,08/25 Tetanus Toxoid, Reduced Diph theria Toxoid, and Acellular Pertussis Vaccine, Adsorbed 01/25/2022,11/19/2009 Varicella Virus Vaccine 11/03/2008,07/01/1999 Family History Medical History Relation Name Comments Schizophrenia Father Gallbladder disease Maternal Half-brother TAMIE disease Maternal Half-sister Gallbladder disease Maternal Half-sister Migraines Maternal Half-sister Migraines Mother Other Mother suspected CVA Parkinsonism Mother Thyroid nodules Mother Bening No Known Problems Paternal Half-sister Diabetes type II Neg Hx Thyroid cancer Neg Hx Relation Name Status Comments Father Maternal Half-brother Alive Maternal Half-sister Alive Mother Alive Paternal Half-sister Alive Social History Tobacco Use Types Packs/Day Years [...] oz pur e alcohol) Sober since 08/28/2021 [facility] Utilities Answer Date Recorded In the past 12 months has e [employer], gas, oil, or water [employer] threatened to shut off services in your [...] Info) Description 08/28/2024 3:00 PM EDT [facility], [place] [address] [facility] [address] [place] [address] Fabián Franks MD [address] [place] [phone] [phone] (Work) 10/03/2024 1:45 PM EDT Follow-Up [facility] [address] [place] [phone] Pipe Roller: Mary Smith MD [address] [place] [address] Obstetric[place] [address] Health Maintenance Due Date Last Done Comments COVID-19 Vaccine (2023-2 5 season) 2024 03/15/2023, 06/10/2021, 09/16/2020, Additional history exists Influenza Vaccine (#1) 2024 03/14/2023, 2021 Alcohol/Substance Use Screening 06/04/2024 Depression Evaluation 06/04/2024 Oral Health Screening 06/04/2024 Pap Smear 01/06/2025 01/06/2022, 0810/2021, 01/06/2022, Additional history exists Basic Metabolic Panel 02/10/2025 02/11/2024 , 09/02/2023, 05/15/2023, Additional history exists DTaP,Tdap,and Td Vaccines (8 - Td or Tdap) 01/26/2032 01/25/2022, 11/19/2009, 07/09/2002, Additional history exists Tobacco Screening 06/04/2042 07/31/2024 RSV Vaccine (60+ years old a nd patients) (1 - 1-dose 75+ series) 2073 Hepatitis B Vaccines Discontinued 03/25/1999, 1998, 1998 Varicella Vaccines Discontinued 11/03/2008, 07/01/1999 Pneumococcal Vaccine: Pediat tiffany (0-5 Years) and At-Risk Patients (6-50 Years) Completed 01/25/2022, 07/09/2000 HIV Screening Completed 05/14/2023 Hepatitis C Screening Completed 05/14/2023 HPV Vaccines Discontinued Procedures * Due to [place] state law, this organization might not be sharing negative HIV tests. Procedure Name Priority Date/Time Associated Diagnosis Comments VALPROIC ACID LEVEL, TOTAL STAT 07/31 9:36 PM EST HCG, QUALITATIVE, SERUM STAT 07/31/19 9:36 PM EST RAPID COVID-19 RNA FOR SURVEILLANCE (ED ONLY) STAT 07/31/2024 9:35 PM EST AR ESOPHAGOGASTRODUODENOSCOP Y TRANSORAL DIAGNOSTIC 07/18/2024 1:50 PM EST Hiatal hernia Change in bowel habits AR COLONOSCOPY FLX DX W/NII J SPEC WHEN [...] TO QUANT PC R - LCP - 509036 Routine 05/14/2023 3:08 PM EST Medicare annual wellness visit, initial Need for hepatitis C screening test HIV AB/P24 AG WITH REFLEX - LCP - 158190 Routine 05/14/2023 3:08 PM EST Screening for HIV (human immunodeficiency virus) Medicare annual wellness visit, initial IGP,APTIMA HPV,CTNG AGE GDLN - LCP - 171611 Routine 01/06/2022 Screening for cervical cancer from Last 3 Months or Most Recently Relevant to Health Maintenance Results * Due to [place] state law, this organization might not be sharing negative HIV tests. * hCG, Qualitative, Serum (07/31/2024 9:36 PM EST) HCG Qualitative, Serum Negative Negative [facility] 07/31/2024 10:17 PM EST [facility] [employer] Comment: hCG may be negative in early . ??Suggest repeat testing in 2-4 days if clinically indicated. ??The results of this test should be interpreted with the patient's clinical presentation. Blood Structure of peripheral vein / Unknown Venipuncture / Unknown 07/31/2024 9:36 PM EST 07/31/2024 9:39 PM EST Angus Frey MD LAB BLOOD ORDERABLES Final Result Performing Organization Address City/[facility]/ZIP Co de Phone Number [facility] [address] [place] [address], [place] * (ABNORMAL) Valproic Acid Level, Total (07/31/2024 9:36 PM EST) Valproic Acid, Total 49(L) 50 - 100 ug/mL 07/31/2024 10:09 PM EST [facility] [employer] [facility] Blood Structure of peripheral vein / Unknown Venipuncture / Unknown 07/31/2024 9:36 PM EST 07/31/2024 9:39 PM EST Angus Frey MD LAB BLOOD ORDERABLES Final Result Performing Organization Address City/[facility]/ZIP Co de Phone Number [facility] [address] [place] [address], [place] * Rapid COVID-19 for Surveillance - Psych/Admission (07/31/2024 9:35 PM EST) PCR, SARS CoV-2 RNA Not Detected Not Detected [facility] 07/31/2024 10:14 PM EST [facility] Comment:A Not Detected (Nega tive) [...] EST 07/31/2024 9:40 PM EST Narrative [facility] - 07/31/2024 10:14 PM EST This test was developed, validated and its performance characteristics determined by [facility]. This test has not been cleared or approved by the U.S. Food and Drug Administration (FDA). FDA Policy for Diagnostic Tests for Coronavirus Disease-2019 during the Public Health Emergency issued August 18, 2019, is followed. Angus Frey MD LAB BODY FLUIDS AND STOOLS ORDERABLES Final Result [facility] [address] [place] [address], [place] * HCG Qualitative, , Urine, POC, interfaced (07/18/2024 1:14 PM EST) HCG Qualitative, Urine, POCT Negative Negative 07/18/2024 1:20 PM EST [facility] P[facility] Comment: Urine HCG testing should be used for early detection only. If the urine HCG result is inconsistent with, or unsupported by, clinical evidence, results should be confirmed with serum HCG method. Urine 07/18/2024 1:14 PM EST 07/18/2024 1:20 PM EST us Fabián Franks MD LAB POCT ORDERAB LES - DEVICE Final Result [facility] POC [address] [place] [address], [place] * UPPER GI ENDOSCOPY (07/18/2024) Narrative Procedure Note Fabián Franks MD - 07/18/2024 1:13 PM EST [facility] Gastroenterology Procedure Date: 07/18/2024 1:13 PM Patient Name: Roberto Shi Date of : 2000 Admit Type: Outpatient Age: 24 Room: [place] [address] Gender: Female Note Status: Finalized Attending MD: [...] MD - 07/18/2024 1:13 PM EST [facility] Procedure Date: 07/18/2024 1:13 PM Patient Name: Roberto Shi Date of : 2000 Admit Type: Outpatient Age: 24 Room: [place] [address] Gender: Female Note Status: Finalized Attending MD: [...] MD [employer] PROCED URES Final Result * (ABNORMAL) Vaginitis DNA Panel (Janae, Trichomonas, Gardnerella) (06/06/2024 7:26 PM EST) Pathologist [facility] Trichomonas vaginalis Negative Negative 06/08/2024 11:17 AM EST [facility] Gardnerella vaginalis Positive(A) Negative 06/08/2024 11:17 AM EST [facility] Janae species Positive(A) Negative 06/08/2024 11:17 AM EST [facility] Swab Vaginal structure / Unknown Non-Blood Collection / Unknown 06/06/2024 7:26 PM EST 06/06/2024 7:26 PM EST us Amdouglas Warren [employer] STORAGE FACILITY HOUSEKEEPER LAB BODY FLUIDS AND STOOLS ORDERABLES Final Result Performing Organization Address [facility] de Phone Number [address] [address], * Chlamydia/N Gonorrhoeae DNA (06/06/2024 7:26 PM EST) Pathologist [facility] C trachomatis DNA Not Detected Not Detected [employer] 06/08/2024 1:23 PM EST [facility] N gonorrhoeae DNA Not Detected Not Detected [employer] GEN[employer] 06/08/2024 1:23 PM EST [facility] Swab Endocervical structure / Unknown Non-Blood Collection / Unknown 06/06/2024 7:26 PM EST 06/06/2024 7:26 PM EST us Amanam Briana [employer] STORAGE FACILITY HOUSEKEEPER LAB BODY FLUIDS AND STOOLS ORDERABLES Final Result Performing Organization Address [facility] Co de Phone Number [address] [address], * Urine Culture (06/06/2024 7:26 PM EST) Pathologist [facility] Urine Culture Workup 25,000-50 ,000 CFU/mL [facility] 06/09/2024 10:38 AM EST [facility] Comment:Mixed Gram positive organisms with no predominant organism present. Consistent with urogenital contamination after 24 hours. Urine Urine specimen collection, clean catch / Unknown Non-Blood Collection / Unknown 06/06/2024 7:26 PM EST 06/06/2024 7:26 PM EST us Cristiana Lawler NP LAB MICROBIOLOGY - GENERAL ORDERABLES Final Result [facility] [address] [place] [address], [place] * (ABNORMAL) POCT Automated Urinalysis Dipstick, interfaced (06/06/2024 7:22 PM EST) Color, POCT Yellow Yellow, Light Yellow, Dark Yellow 06/06/2024 7:24 PM EST [facility], POC Clarity, POCT Clear Clear 06/06/2024 7:24 PM EST [facility] Glucose, POCT Negative Negative mg/dL 06/06/2024 7:24 PM EST [facility] Bilirubin, POCT Negative Negative 06/06/2024 7:24 PM EST [facility] Ketones, POCT Negative Negative mg/dL 06/06/2024 7:24 PM EST [facility], POC Specific [place], POCT 1.020 1.005 - 1.030 06/06/2024 7:24 PM EST [facility] Blood, POCT Negative Negative 06/06/2024 7:24 PM EST [facility] pH, POCT 7.0 5.0 - 8.0 06/06/2024 7:24 PM EST [facility], P[facility] Protein, POCT Negative Negative mg/dL 06/06/2024 7:24 PM EST [facility]OC Urobilinogen, POCT 0.2 0.2, 1.0 EU/dL 06/06/2024 7:24 PM EST [facility], POC Nitrite, POCT Negative Negative 06/06/2024 7:24 PM EST [facility] POC Leukocyte Esterase, POCT Small(A) Negative 06/06/2024 7:24 PM EST [facility], POC Urine 06/06/2024 7:22 PM EST 06/06/2024 7:24 PM EST us Doctor Unknown LAB POCT ORDERABLES - DEVICE Fin al Result [facility], POC [address] [place] [address], [place] * XR Chest 2 vw. Standard [...] obtain the completed interpretation. ? Workstation ID: [id number] Narrative 06/02/2024 6:22 AM EST COMPARISON: 02/11/2024. FINDINGS: Lines/Tubes/Devices: None. Lungs: The lungs are well-aerated without consolidation or pulmonary edema. Pleura: No pleural effusion or pneumothorax. Heart and Mediastinum: The cardiac and mediastinal contours are normal. Bones: No acute osseous abnormality. Resulting Agency Comment [id number] Procedure Note Ovidio Yap MD - 06/02/2024 [...] possible to obtain thecompleted interpretation. Workstation ID: [id number] us Dian Mendoza MD IMG XR PROCEDURES Final Re sult * ECG 12 lead (06/02/2024 5:03 AM EST) Ventricular Rate EKG 96 BPM MUSE EKG Atrial Rate 96 BPM MUSE EKG AR Interval 148 ms MUSE EKG QRS Interval 88 ms MUSE EKG QT Interval 354 ms MUSE EKG QTC Interval 447 ms MUSE EKG P Hammond 48 degrees MUSE EKG R Hammond 59 degrees MUSE EKG T Wave Hammond 60 degrees MUSE EKG 06/02/2024 5:03 AM EST 06/03/2024 8:21 AM EST Impressions MUSE EKG - 06/03/2024 8:22 AM EST Normal sinus rhythm Normal ECG No previous ECGs available Confirmed by Zachery Jackson ([id number]) on 06/03/2024 8:21:58 AM us Dian Mendoza MD ECG ORDERABLES Final Resu lt MUSE EKG * HEART & VASCULAR - SCANNED (06/02/2024) Anatomical Region Laterality Modality Other us Onbase Scan Rayshawn SCANNED PROCEDURES Final Resu lt * (ABNORMAL) Urine Culture, Special (Cytoscopic/Nephrostomy/Suprapubic Catheter/Chronic Catheter/Straight Catheter) (05/23/2024 2:20 PM EST) Culture Results Updated 4:32 AM EST [employer] [facility] Culture Lactobacillus species(A) 05/27/2024 4:32 AM EST [employer] [facility] Comment: May represent colonizers from external and internal genitalia. No further testing (including susceptibility) will be performed. 1,000-9,000 CFU/ML of Lactobacillus species Urine Urine specimen obtained via straight catheter / Unknown Non-Blood Collection / Unknown 05/23/2024 2:20 PM EST 05/23/2024 6:47 PM EST Narrative [facility] - 05/27/2024 4:32 AM EST [facility] Received Date: MICRO NUMBER: [id number] SPECIMEN QUALITY: Adequate SOURCE: URINE STRAIGHT CATHETER STATUS: FINAL Dustin Short MD LAB MICROBIOLOGY - GENERAL O RDERABLES Final Result [facility] [address] [facility] [address], [place] [address], [place] [phone] [employer] [facility] [address] [facility] [address], [place] [address], [place] [phone] * (ABNORMAL) Comprehensive Metabolic Panel (02/11/2024 8:31 PM EDT) NA 135(L) 136 - 145 mmol/L 02/11/2024 9:21 PM EDT [facility] K 3.8 3.5 - 5.3 mmol/L [...] - 99 mg/dL 02/11/2024 9:21 PM EDT [facility] Creatinine 1.20 0.60 - 1.30 mg/dL 02/11/2024 9:21 PM EDT [facility] Calcium 9.9 8.5 - 10.1 mg/dL 02/11/2024 9:21 PM EDT [facility] Total Protein 8.1 6.4 - 8.2 g/dL 02/11/2024 9:21 PM EDT [facility] Albumin 3.4 3.4 - 5.0 g/dL 02/11/2024 9:21 PM EDT [facility] Bilirubin, Total 0.5 0.3 - 1.2 mg/dL 02/11/2024 9:21 PM EDT [facility] Alkaline Phosphatase 83 50 - 136 U/L 02/11/2024 9:21 PM EDT [facility] AST 76(H) 15 - 37 U/L 02/11/2024 9:21 PM EDT [facility] ALT 52 12 - 78 U/L 02/11/2024 9:21 PM EDT [facility] BUN 10 7 - 18 mg/dL 02/11/2024 9:21 PM EDT [facility] eGFR 65 >=60 mL/min/1 .73m2 02/11/2024 9:21 PM EDT [facility] Comment:The estimated glomer ular filtration rate [...] ORDERABLES Final Resul t Performing Organization Address City/[facility]/ZIP Co de Phone Number [address] [address], * HCV Antibody RFX to Quant PCR (05/14/2023 3:08 PM EST) HCV Ab Non Reactive Non Reactive [facility] Blood Structure of peripheral vein / Unknown 05/14/2023 3:08 PM EST 05/14/2023 Narrative [facility] - 05/15/2023 6:07 AM EST Performed at: ??01 - [facility] [address] ??[id number] Real Estate Utilization Officer: Key Trevino MD, Phone: ??[phone] us Kera GARCÍA [facility] ORDERABLES Final Res [...] AM EST Performed at: ??01 - [facility] [address] ??[id number] Real Estate Utilization Officer: Key Trevino MD, Phone: ??[phone] us Kera Mcintyre PA AMB [facility] ORDERABLES Final Res ult [facility] * IGP,Aptima HPV,CtNg Age Gdln (01/06/2022) Cervical Cells Cervix uteri structure / Unknown 01/06/2022 us Estefanía Dhaliwal STORAGE FACILITY HOUSEKEEPER AMB [facility] ORDERABLES Final Res ult [facility] from Last 3 Months or Most Recently Relevant to Health Maintenance Insurance [facility]IC[facility] MEDICARE [facility] [place] [id number] MEDICARE [facility] Advance Directives Documents on File Type Date Recorded Patient School Secretary [facility] Proxy 03/15/2023 3:14 PM [facility] Care Proxy Care Teams Lace Mender Relationship Specialty Start Date End Date Kera Mcintyre PA [address] [place] [address] [place] [phone] PCP - General Physician [employer] Labourer 03/14/23
--- OUTSIDE RECORDS SUMMARY | 2024-08-04 18:29 | XMS_ITS | Encounter Summary ---
Author Organization [facility] Address [address] [place] [address] Care Team Providers Care Formula Technician Name Role Phone Kera Mcintyre Primary Care Provider [phone] Encounter Details Date Type Department Care Team (Late Contact Info) Description 01/16/2022 [employer] Message [facility] [address] [facility] [address] [place] [address] Estefanía Dhaliwal NP [address] [place] [address] Chronic pain Social History Tobacco Use Types Packs/Day [...] PM EDT Follow-Up [facility] [address] [facility] [address] [place] [address] Fabián Franks MD [address] [place] [phone] (Work) 10/03/2024 1:45 PM EDT Follow-Up [facility] [address] [place] [phone] Core Shaper Top: Mary Smith MD [address] [place] [address] Ob[place]etrics [place] [address] documented as of this encounter Visit Diagnoses [...] documented as of this encounter Care Teams Formula Technician Relationship Specialty Start Date End Date Kera Mcintyre PA [address] [place] [phone] PCP - General Physician Asbestos Abatement Technician 03/14/23 documented as of this encounter
--- OUTSIDE RECORDS SUMMARY | 2024-08-04 18:29 | XMS_ITS | Encounter Summary ---
Author Organization [facility] Address [address] [place] [address] Care Team Providers Care High School Music Instructor Name Role Phone Kera Mcintyre Primary Care Provider [phone] Encounter Details Date Type Department Care Team (Late st Contact Info) Description 06/19/2024 Knowta Message [facility] [address] [place] [address] Madisyn Núñez Introduction Social History Tobacco Use Types Packs/Day Years Used Date Smoking Tobacco: Former Cigarettes 0.5 8.2 S tarted: 2017 Smokeless Tobacco: Current Last attempted to quit: 2019 Comments:Vapes nicotine Passive Exposure Comments:Pt vapes nicotine Alcohol Use Standard Drinks/Week Comments Not Currently 0 (1 standard drink = 0.6 oz pur e alcohol) Sober since 08/28/2021 [facility] Utilities Answer Date Recorded In the past 12 months has [employer], gas, oil, or water [employer] threatened to shut off services in your [...] PM EDT Follow-Up [facility] [address] [facility] [address] [place] [id number] Fabián Franks MD [address] [place] [address] -[phone] (Work) 10/03/2024 1:45 PM EDT Follow-Up [facility] [address] [id number] Carpet Loom Fixer: Mary Smith MD 119 [facility] Obstetrics [place] [address] documented as of this encounter Visit Diagnoses Not on filedocumented in this encounter Additional Health Concerns Infection Onset Date Last Indicated Resolved Time COVID-19 - Confirmed infection 05/31/2024 05/31/2024 06/30/2024 10:32 PM EST documented as of this encounter Care Teams High School Music Instructor Relationship Specialty Start Date End Date Kera Mcintyre PA [address] [place] [id number] PCP - General Physician Incoming Freight Clerk 03/14/23 documented as of this encounter
--- OUTSIDE RECORDS SUMMARY | 2024-08-04 18:29 | XMS_ITS | Encounter Summary ---
Author Organization [facility] Address [address] [place] [address] Care Team Providers Care Landfill Attendant Name Role Phone Kera Mcintyre Primary Care Provider [phone] Reason for Visit * Reason Onset Date Comments [facility] Sick Call 06/26/2024 Encounter Details Date Type Department Care Team (Late st Contact Info) Description 06/26/2024 Telephone [facility] [address] [facility] [address] [place], [place] [phone] Kera Mcintyre PA [address] [place], [place] [phone] [facility] Sick Call Social History Tobacco Use Types Packs/Day Years Used Date Smoking Tobacco: Former Cigarettes 0.5 8.2 S tarted: 2017 Smokeless Tobacco: Current Last attempted to quit: 2019 Comments:Vapes nicotine Passive Exposure Comments:Pt vapes nicotine Alcohol Use Standard Drinks/Week Comments Not Currently 0 (1 standard drink = 0.6 oz pur e alcohol) Sober since 08/28/2021 [facility] Utilities Answer Date Recorded In the past 12 months has [employer] electric, gas, oil, or water company threatened [...] encounter Miscellaneous Notes * Telephone Encounter - Edith Adams - 06/26/2024 4:36 PM EST Patient was seen by [facility] (not us) and was prescribed yeast infection medication, patient's labs came back positive for mina, patient is still experiencing symptoms after completing the round of meds. Patient feel extremely itchy and symptoms of a UTI. Patient does not want to be sent back to urology, and was told she was find. Patient would like to see her pcp. documented in this encounter Plan of Treatment Upcoming Encounters Date Type Department Care Team (Late st Contact Info) Description 08/28/2024 3:00 PM EDT Follow-Up [facility] [address] [facility] [address] [place] [address] Fabián Franks MD [address] [place] [address] -[phone] (Work) 10/03/2024 1:45 PM EDT Follow-Up [facility] [address] [place] [id number] Home Care Rn: Mary Smith MD [address] [facility] Obstetrics [place] [address] documented as of this encounter Visit Diagnoses Not on filedocumented in this encounter Additional Health Concerns Infection Onset Date Last Indicated Resolved Time COVID-19 - Confirmed infection 05/31/2024 05/31/2024 06/30/2024 10:32 PM EST documented as of this encounter Care Teams Landfill Attendant Relationship Specialty Start Date End Date Kera Mcintyre PA [address] [place] [id number] PCP - General Physician Apparel Sales Leader 03/14/23 documented as of this encounter
--- OUTSIDE RECORDS SUMMARY | 2024-08-04 18:29 | XMS_ITS | Data Portability ---
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 Name Role Phone AGAKALIE Primary Care Provider Assessment Encounter Date Assessment Date Assessment LastModified by Organization Details LastModified Time 02/26/2024 02/26/2024 Left lower extremity boxtox [email or web address] Not available 02/26/2024 16:32:31 04/02/2024 04/02/2024 Left lower extremity boxtox [email or web address] Not available 04/02/2024 08:20:50 07/03/2024 07/03/2024 Left lower extremity boxtox [email or web address] Not available 07/03/2024 15:38:10 Plan of Treatment Reminders Order Date Submit Date Provider Last Modified By Organization Details Last Modified Time Details Appointments PROCEDURE 30 2024 05:00P Gregor MARTINEZ, DO Not available Not available Not available Lab None recorded. Referral None recorded. Procedures None recorded. Surgeries None recorded. Imaging None recorded. Medication Orders tizanidin e 2 mg tablet 2024 025 [facility] #[id number], [address] [place], [id number], 07/03/2024 16:28:57 ondansetr on 4 mg disintegr ating tablet 2024 025 [facility] #14375, [address] [place], [id number], 07/03/2024 16:28:58 Emgality Pen 120 mg/mL subcutane ous pen injector 2024 025 [facility] #94032, [address] [place], [id number], 07/03/2024 16:28:57 Nurtec ODT 75 mg disintegr ating tablet 2024 025 [facility] #30029, [address] [place], [id number], 07/03/2024 16:29:01 Lyrica 100 mg capsule 2024 025 [facility] #09601, [address] [place], [id number], 07/03/2024 16:29:31 Ajovy 225 mg/1.5 mL subcutane ous auto-inje ctor 2023 024 [facility] #82842, [address] [place], [id number], 04/02/2024 08:34:45 methocarb dulce 500 mg tablet 2023 024 [facility]152[facility], [address] [place], [id number], 04/02/2024 08:34:46 Lyrica 100 mg capsule 2023 024 [facility] #94867, [address] [place], [id number], 04/02/2024 08:34:50 methocarb dulce 500 mg tablet 2023 024 [facility] #901[facility], [address] [place], [id number], 02/26/2024 18:00:28 Lyrica 100 mg capsule 2023 024 [facility] #49957, [address] [place], [id number], 02/26/2024 18:00:34 Patient TargetsNo targets recorded. Patient InstructionsNo instructions recorded. Reason for Referral None Reported. Problems Name Problem SNOMED Code Status Onset Date Resolution Date Notes Provider Name and Address Organization Details Recorded Time Fibromyalg ia 510648533 Active 2021 Not Available [facility] 2 01:08:39 Hypertensi ve disorder 44469440 Active 2021 Not Available [facility] 2 01:08:39 Asthma 920214196 Active 2021 Not Available [facility] 2 01:08:39 Migraine 82320701 Active 2021 Not Available [facility] 2 01:08:39 Gastroesop hageal reflux disease 447509315 Active 2021 Not Available [facility] 2 01:08:39 History of cocaine abuse 9269673163008 06 Active 2021 Not Available [facility] 2 01:08:39 Obesity 958712099 Active 2021 Not Available [facility] 2 01:08:39 Problem Notes None recorded. Procedures Surgical History Date Name Laterality Status Provider Name and Address Organization Details Recorded Time 03/18/20 24 FL Lumbar ILESI completed ANNE MARTINEZ DO [address] [place] [address], [address], [place], [address], [place] [facility] 03/18/2024 18:06:07 09/13/19 24 [place] Lumbar ILESI completed DO Amie GREEN [facility], [place] [address], [place], [address], [place] [facility] 09/13/2023 17:30:08 07/26/19 24 Ultrasound Guided Botox injections completed DO Amie GREEN [facility], [address], [place], [address], [place] [facility] 07/26/2023 14:19:38 07/12/19 24 trigger point back completed Seferino Hendrix, [address], [address], [place], [address], [facility] 07/12/2023 16:46:18 04/25/20 23 Ultrasound Guided Botox injections completed ANNE MARTINEZ, [address], [address], [place], [address], [facility] 04/25/2023 12:50:12 03/02/20 23 trigger point back completed Seferino Hendrix, [address], [address], [place], [address], [facility] 03/02/2023 14:25:50 11/15/19 23 trigger point back completed Seferino Hendrix, [address], [address], [place], [address], [facility] 11/14/2022 12:23:24 03/06/20 22 trigger point back completed Seferino Hendrix, [address], [address], [place], [address], [facility] 03/06/2022 17:14:26 tonsillectomy completed Dian Jackson PA-C [address] [place] [address], [address], [place], [address], [facility] 01/27/2022 14:35:41 Imaging Results None recorded. Procedure Notes None recorded. Medical Equipment None Reported. Allergies No known drug allergies Medications Name Sig Start Date Stop Date Status Note LastModified by Organization Details LastModified Time quetiapine 25 mg tablet TAKE 1 TABLET BY MOUTH NIGHTLY AT 8 PM active Not Available Not Available No t Available cyclobenzap rine 10 mg tablet 05/04 completed Not Available Not Available Not Available amoxicillin 500 mg capsule TAKE 1 CAPSULE BY MOUTH EVERY 8 HOURS UNTIL FINISHED active Not Available Not Available No t Available methocarbam ol 500 mg tablet TAKE 2 TABLETS BY MOUTH EVERY DAY NEEDED active Not Available Not Available No t Available metformin 500 mg tablet active Not Available Not Available Not Available bupropion HCl SR 150 mg tablet,12 hr sustained-r elease active Not Available Not Available Not Available doxycycline hyclate 100 mg capsule TAKE 1 CAPSULE BY MOUTH ONCE A DAY active Not Available Not Available No t Available propranolol 80 mg tablet TAKE 1 TABLET BY MOUTH TWICE A DAY active Not Available Not Available No t Available perphenazin e 2 mg tablet TAKE 1 TABLET (2 MG TOTAL) BY MOUTH AT BED TIME. active Not Available Not Available No t Available tizanidine 2 mg tablet Take 1 tablet 3 times a day by oral route as needed for 30 days, for muscle pain and spasm. active Not Available Not Available No t Available oxybutynin chloride ER 10 mg tablet,exte nded release 24 hr active Not Available Not Available Not Available tizanidine 4 mg tablet TAKE 1 TABLET BY MOUTH TWICE DAILY active Not Available Not Available No t Available fluconazole 150 mg tablet TAKE 1 TABLET TODAY THEN REPEAT X1 IN 72 HOURS AND AGAIN REPEAT IN 1 WEEK active Not Available Not Available No t [...] active Not Available Not Available Not Available gabapentin 400 mg capsule 05/04 completed Not Available Not Available Not Available sumatriptan 50 mg tablet active Not Available Not Available Not Available lithium carbonate ER 300 mg tablet,exte nded release TAKE 2 TABLETS BY MOUTH AT BEDTIME active Not Available Not Available No t Available omeprazole 40 mg capsule,del ayed release TAKE 1 CAPSULE BY MOUTH EVERY DAY active Not Available Not Available No t Available quetiapine 100 mg tablet active Not Available Not Available Not Available triamcinolo ne acetonide 0.1 % topical cream APPLY TOPICALLY TO THE AFFECTED AREA TWICE DAILY FOR 7 DAYS active Not Available Not Available No t Available lithium carbonate ER 450 mg tablet,exte nded release TAKE 2 TABLETS BY MOUTH NIGHTLY ALONG WITH 150MG FOR TOTAL DAILY DOSE 1050MG active Not Available Not Available No t Available lamotrigine 25 mg tablet TAKE 2 TABLETS (50 MG TOTAL) BY MOUTH ONCE A DAY. active Not Available Not Available No t Available propranolol 40 mg tablet TAKE 1 TABLET BY MOUTH TWICE DAILY active Not Available Not Available No t Available lorazepam 0.5 mg tablet TAKE 1 TABLET 30 MINUTES BEFORE PROCEDURE AND THEN BRING 1 TABLET TO PROCEDURE active Not Available Not Available No t Available methocarbam ol 750 mg tablet TAKE 1 TABLET BY MOUTH THREE TIMES DAILY NEEDED active Not Available Not Available No t Available clindamycin 1 % topical gel APPLY TOPICALLY TO AXILLA DAILY AFTER SHAVING active Not Available Not Available No t Available trazodone 100 mg tablet active Not Available Not Available Not Available lithium carbonate 600 mg capsule active Not Available Not Available Not Available lithium carbonate 300 mg capsule TAKE 3 CAPSULES (900 MG TOTAL) BY MOUTH 2 (TWO) TIMES A DAY. active Not Available Not Available No t Available cephalexin 500 mg capsule TAKE 1 CAPSULE BY MOUTH TWICE DAILY active Not Available Not Available No t Available buspirone 10 mg tablet TAKE 1 TABLET BY MOUTH 3 TIMES A DAY. active Not Available Not Available No t Available divalproex ER 500 mg tablet,exte nded release 24 hr TAKE 3 TABLETS BY MOUTH EVERY NIGHT AT 8PM active Not Available Not Available No t Available divalproex 125 mg tablet,catrachito yed release TAKE 1 TABLET BY MOUTH EVERY NIGHT WITH 1500MG DOSE TOTAL DAILY DOSE IS 1625MG active Not Available Not Available No t Available perphenazin e 4 mg tablet TAKE 1 TABLET BY MOUTH TWICE DAILY active Not Available Not Available No t Available oxybutynin chloride ER 5 mg tablet,exte nded release 24 hr active Not Available Not Available Not Available omeprazole 20 mg capsule,del ayed release TAKE 1 CAPSULE BY MOUTH 2 TIMES A DAY. active Not Available Not Available No t Available thiothixene 2 mg capsule TAKE 2 CAPSULES BY MOUTH EVERY 12 HOURS. active Not Available Not Available No t Available mupirocin 2 % topical ointment APPLY TOPICALLY TO THE AFFECTED AREA TWICE DAILY NEEDED active Not Available Not Available No t Available albuterol sulfate HFA 90 mcg/actuati on aerosol inhaler active Not Available Not Available Not Available ketoconazol e 2 % topical cream active Not Available Not Available Not Available haloperidol 2 mg tablet active Not Available Not Available Not Available ondansetron 4 mg disintegrat ing tablet Place 2 tablets twice a day by transling ual route as needed for 14 days, for nausea prn. active Not Available Not Available No t Available lithium carbonate 300 mg tablet active Not Available Not Available Not Available metformin ER 500 mg tablet,exte nded release 24 hr active Not Available Not Available Not Available buspirone 15 mg tablet TAKE 1 TABLET BY MOUTH 2 TIMES A DAY. active Not Available Not Available No t Available divalproex ER 250 mg tablet,exte nded [...] Not Available Not Available No t Available Flovent HFA 110 mcg/actuati on aerosol inhaler active Not Available Not Available Not Available tizanidine 4 mg capsule Take 1 capsule twice a day by oral route for 19 days. 2022 active Not Available Not Available Not Avai lable pregabalin 25 mg capsule TAKE 2 CAPSULES BY MOUTH TWICE DAILY IN THE MORNING active Not Available Not Available No t Available pregabalin 75 mg capsule Take 1 capsule 3 times a day by oral route for 15 days. active Not Available Not Available No t Available pregabalin 150 mg capsule TAKE 1 CAPSULE BY MOUTH TWICE DAILY active Not Available Not Available No t Available Lyrica 100 mg capsule Take 2 capsules every day by oral route at bedtime for 30 days. active Not Available Not Available No t Available sodium fluoride 1.1 % dental paste USE IN PLACE OF REGULAR TOOTHPAST E TWICE A DAY. active Not Available Not Available No t Available quetiapine 50 mg tablet NEEDED FOR INSOMNIA TAKE 1 TABLET BY MOUTH AT BEDTIME active Not Available Not Available No t Available diclofenac 1 % topical gel APPLY 2 GRAMS TO THE AFFECTED AREA(S) BY TOPICAL ROUTE 4 TIMES PER DAY 2022 active Not Available Not Available Not Avai lable GaviLyte-G 236 gram-22.74 gram-6.74 gram-5.86 gram oral solution TAKE BY MOUTH DIRECTED active Not Available Not Available No t Available Botox 200 unit injection inject 200 units by physician for treatment of migraine headaches 2023 active Not Available Not Available Not Avai lable Latuda 40 mg tablet active Not Available Not Available No t Available Ajovy Syringe 225 mg/1.5 mL subcutaneou s INJECT 225 MG SUBCUTANE OUSLY EVERY MONTH IN ABDOMEN, THIGH OR UPPER ARM active Not Available Not Available No t Available Emgality Pen 120 mg/mL subcutaneou s pen injector Inject 240 mg by subcutane ous route once active Not Available Not Available No t Available Nurtec ODT 75 mg disintegrat ing tablet Take 1 tablet as needed by oral route as directed for 28 days, for migraine. active Not Available Not Available No t Available Ajovy 225 mg/1.5 mL subcutaneou s auto-inject or Inject 225 mg every month by subcutane ous route for 30 days. active Not Available Not Available No t Available Paxlovid 300 mg (150 mg x 2)-100 mg tablets in a dose pack TAKE 2 TABLETS (NIRMATRE LVIR) AND TAKE 1 TABLET (RITONAVI R) BY MOUTH TWICE A DAY FOR 5 DAYS active Not Available Not Available No t Available methocarbam ol 1,000 mg tablet Take 1 tablet twice a day by oral route for 28 days. 2022 active Not Available Not Available Not Avai lable Vitals Date Recorded Body height Heart rate Body temperature Body mass index (BMI) Body weight Oxygen saturation Oxygen saturation in Arterial blood by Pulse oximetry Systolic blood pressure Diastolic blood pressure Provider Name and Address Organization Details Last Updated DateTime 4 177.8 cm 88 /min 98.3 [degF] 51.7 kg/m2 632346. 25 g 97 % 97 % 121 mm[Hg] 73 mm[Hg] Carolyn Dawkins [place] - [facility] 4 17:40:33 Date Recorded Body height Heart rate Body temperature Body mass index (BMI) Body weight Oxygen saturation Oxygen saturation in Arterial blood by Pulse oximetry Systolic blood pressure Diastolic blood pressure Provider Name and Address Organization Details Last Updated DateTime 4 177.8 cm 79 /min 97.4 [degF] 51.7 kg/m2 857714. 25 g 97 % 97 % 119 mm[Hg] 72 mm[Hg] Carolyn Dawkins [place] - [facility] 4 08:17:30 Date Recorded Body height Body temperature Body mass index (BMI) Body weight Provider Name and Address Organization Details Last Updated DateTime 07/03/2024 177.8 cm 98.2 [degF] 51.7 kg/m2 720855.25 g Carolyn Dawknis [place] - [facility] 07/03/2024 15:27:35 Social History Question Answer Notes LastModified by Organizat ion Details LastModified Time Tobacco Smoking Status Current Every Day Smoker Dian Jackson PA-C [address] [place] [address], [address], [place], [address], [facility] 01/27/2022 15:23:57 What Is Your Level Of Alcohol Consumption? None 5 Months Sober [email or web address] Information not available 01/27/2022 How Much Tobacco Do You Smoke? 0.5 PPD Information not available 01/27/2022 Do You Use Any Illicit Or Recreational Drugs? No Information not available 01/27/2022 Sex: Unknown Functional Status None recorded. Mental Status None recorded. Family History Nothing Reported. Medical History No medical history recorded. Gynecological HistoryNo gynecological history recorded. Obstetrics History GPAL:G 0 P 0 0 0 0 Past Encounters Encounter ID Performer Location Encounter Start Date Encounter Closed Date Diagnosis/Indication Diagnosis SNOMED-CT Code Diagnosis ICD10 Code Diagnosis Note [id number] DO ERIKA Bond [address] [place] [address], [address] [place] [address] 01/27/2022 14:05:46 01/27/2022 15:23:53 Lumbosacral radiculopathy 8185980 M54.17 Patient has completed 6 weeks of physical therapy in the past 6 months with no relief of their pain. The patient also continues to use NSAIDS, rest, ice, heat, and physician- directed stretching exercises with no relief of their symptoms. The patient routinely experience s pain scores greater than 6 out of 10. The pain interferes with the patient's ability to perform their activities of daily living. Patient has symptoms of a lumbar radiculopa thy as well as corroborat ing physical exam findings such as a positive straight leg raise test. Recommend lumbar spine MRI to evaluate patient for any potential surgical and injection interventi ons such as epidural steroid injection. of note the patient has an MRI of the brain on 02/28/22 Patient is on Gabapentin 400mg TID with good relief she admits to mild fatigue. We will consider increasing the Gabapentin or starting pregabalin if no relief with naltrexone and tizanidine Patient will follow up in 4 weeks for medication refill Patient was seen and evaluated with Dr. Seferino Hendrix. A plan of care was developed with Dr. Hendrix who was present in office at time of evaluation . Fibromyalgia 574219118 M 79.7 Patient is on cyclobenza antwan with minimal pain relief. We will start the patient on Low dose naltrexone 1.5mg QHS and tizanidine 4mg BID We will schedule the patient for trigger point injections [id number] Seferino Hendrix [address], [address] [address] 02/24/2022 11:52:02 02/24/2022 13:28:29 Lumbosacral radiculopathy 0202368 M54.17 Patient has completed 6 weeks of physical therapy in the past 6 months with no relief of their pain. The patient also continues to use NSAIDS, rest, ice, heat, and physician- directed stretching exercises with no relief of their symptoms. The patient routinely experience s pain scores greater than 6 out of 10. The pain interferes with the patient's ability to perform their activities of daily living. Patient has symptoms of a lumbar radiculopa thy as well as corroborat ing physical exam findings such as a positive straight leg raise test. Recommend lumbar spine MRI to evaluate patient for any potential surgical and injection interventi ons such as epidural steroid injection. Patient reports moderate relief with Gabapentin 400mg TID. We will switch to pregabalin 75mg TID Patient will follow up in 4 weeks for medication refill Patient's plan of care was reviewed by Dr. Hendrix who was present in office at time of evaluation and visit. Any new issues and patient complaints were reviewed with Dr. eHndrix and a plan of care was developed with his guidance. Fibromyalgia 961801393 M 79.7 We started the patient on Low dose naltrexone 1.5mg QHS patient states she can not afford the medication and would like to discontinu e the medication Patient reports good relief and denies adverse effects with tizanidine 4mg BID we will continue Of note patient has little relief with cyclobenza antwan Patient is schedule the patient for trigger point injections [id number] Seferino Hendrix [address], [address] [address] 03/06/2022 16:33:30 03/06/2022 17:16:53 Myalgia/myositis - multiple 073745679 M79.12 Completed trigger point injections [id number] Seferino Hendrix [address], [address] [place] [address] 03/28/2022 17:09:20 03/28/2022 17:52:35 Lumbosacral radiculopathy 0413192 M54.17 Patient has completed 6 weeks of physical therapy in the past 6 months with no relief of their pain. The patient also continues to use NSAIDS, rest, ice, heat, and physician- directed stretching exercises with no relief of their symptoms. The patient routinely experience s pain scores greater than 6 out of 10. The pain interferes with the patient's ability to perform their activities of daily living. Patient has symptoms of a lumbar radiculopa thy as well as corroborat ing physical exam findings such as a positive straight leg raise test. Recommend lumbar spine MRI to evaluate patient for any potential surgical and injection interventi ons such as epidural steroid injection. Patient reports significan t relief and denies adverse effects with pregabalin 75mg TID we will continue. Patient will follow up in 23 days for medication refill Patient's plan of care was reviewed by Dr. Hendrix who was present in office at time of evaluation and visit. Any new issues and patient complaints were reviewed with Dr. Hendrix and a plan of care was developed with his guidance. Fibromyalgia 163297221 M 79.7 We started the patient on Low dose naltrexone 1.5mg QHS patient states she can not afford the medication and would like to discontinu e the medication Patient reports good relief and denies adverse effects with tizanidine 4mg BID we will continue. Of note patient has little relief with cyclobenza antwan Patient completed trigger point injections on 03/06/22 with good relief in pain we will repeat as needed. Opioid dependence 635934 00 F11.20 Will check UT next visit and send GCMS for pregabalin . [id number] [address]eferino [address]rix [address], [address] [place] [address] 04/20/2022 15:36:47 04/20/2022 16:14:33 Lumbosacral radiculopathy 4210148 M54.17 Patient has completed 6 weeks of physical therapy in the past 6 months with no relief of their pain. The patient also continues to use NSAIDS, rest, ice, heat, and physician- directed stretching exercises with no relief of their symptoms. The patient routinely experience s pain scores greater than 6 out of 10. The pain interferes with the patient's ability to perform their activities of daily living. Patient has symptoms of a lumbar radiculopa thy as well as corroborat ing physical exam findings such as a positive straight leg raise test. Recommend lumbar spine MRI to evaluate patient for any potential surgical and injection interventi ons such as epidural steroid injection. Patient deferred injections at this time given good respons to pregabalin . Patient reports significan t relief and denies adverse effects with pregabalin 75mg TID we will continue. Patient will follow up in 28 days for medication refill Patient's plan of care was reviewed by Dr. Hendrix who was present in office at time of evaluation and visit. Any new issues and patient complaints were reviewed with Dr. Hendrix and a plan of care was developed with his guidance. Fibromyalgia 658394734 M 79.7 We started the patient on Low dose naltrexone 1.5mg QHS patient states she can not afford the medication and would like to discontinu e the medication . Patient reports good relief and denies adverse effects with tizanidine 4mg BID and diclofenac gelwe will continue. Of note patient has little relief with cyclobenza antwan Patient completed trigger point injections on 03/06/22 with good relief in pain we will repeat as needed. Opioid dependence 230258 00 F11.20 CSA renewed on 03/28/22. Opioid risk tool completed on 04/20/22. Patient scored 19 which is HIGH risk. Given HIGH score we will closely monitor the patient when we prescribe any controlled substances by performing frequent UT and send GCMS for EtOH and other illicit substances . GCMS from 03/18 postive for pregabalin . The last drug screen was performed on 04/20/22 and was consistent with treatment. We will send GCMS pregabalin and illicit substances . Urine test will be rechecked in 2 months which is 06/26. [id number] Seferino Hendrix DO [address], [address] [place] [address] 05/18/2022 14:40:45 05/18/2022 14:52:22 Lumbosacral radiculopathy 1612432 M54.17 Patient has completed 6 weeks of physical therapy in the past 6 months with no relief of their pain. The patient also continues to use NSAIDS, rest, ice, heat, and physician- directed stretching exercises with no relief of their symptoms. The patient routinely experience s pain scores greater than 6 out of 10. The pain interferes with the patient's ability to perform their activities of daily living. Patient has symptoms of a lumbar radiculopa thy as well as corroborat ing physical exam findings such as a positive straight leg raise test. Recommend lumbar spine MRI to evaluate patient for any potential surgical and injection interventi ons such as epidural steroid injection. Patient deferred injections at this time given good response to pregabalin . Patient reports significan t relief pain with pregabalin 75mg TID. She endorses taking the medication as prescribed . we will continue. Patient will follow up in 28 days for medication refill. Patient's plan of care was reviewed by Dr. Hendrix who was present in office at time of evaluation and visit. Any new issues and patient complaints were reviewed with Dr. Hendrix and a plan of care was developed with his guidance. Fibromyalgia [id number] M 79.7 We started the patient on Low dose naltrexone 1.5mg QHS patient states she can not afford the medication and would like to discontinu e the medication . Patient reports good relief and denies adverse effects with tizanidine 4mg BID and diclofenac gel we will continue. Of note patient has little relief with cyclobenza antwan. Patient completed trigger point injections on 03/06/22 with good relief in pain we will repeat as needed. Opioid dependence [id number] F11.20 CSA renewed on 03/28/22. Opioid risk tool completed on 04/20/22. Patient scored 19 which is HIGH risk. Given HIGH score we will closely monitor the patient when we prescribe any controlled substances by performing frequent UT and send GCMS for EtOH and other illicit substances . GCMS from 03/18/2022 postive for pregabalin . GCMS from 04/20/2022 postive for pregabalin and negative for all ther substances tested. The last drug screen was performed on 04/20/2022 and was consistent with treatment. We will send GCMS pregabalin and illicit substances . Urine test will be rechecked in 2 months which is 06/2022. [id number] Seferino Hendrix DO [address], [address] [place] [id number] 07/03/2022 09:46:33 07/03/2022 11:22:18 Lumbosacral radiculopathy [id number] M54.17 Patient has completed 6 weeks of physical therapy in the past 6 months with no relief of their pain. The patient also continues to use NSAIDS, rest, ice, heat, and physician- directed stretching exercises with no relief of their symptoms. The patient routinely experience s pain scores greater than 6 out of 10. The pain interferes with the patient's ability to perform their activities of daily living. Patient has symptoms of a lumbar radiculopa thy as well as corroborat ing physical exam findings such as a positive straight leg raise test. Recommend lumbar spine MRI to evaluate patient for any potential surgical and injection interventi ons such as epidural steroid injection. Patient deferred injections at this time given good response to pregabalin . Patient reports significan t relief pain with pregabalin 75mg TID. She endorses taking the medication as prescribed . we will continue. Patient will follow up in 28 days for medication refill. Patient's plan of care was reviewed by Dr. Hendrix who was present in office at time of evaluation and visit. Any new issues and patient complaints were reviewed with Dr. Hendrix and a plan of care was developed with his guidance. Fibromyalgia [id number] M 79.7 We started the patient on Low dose naltrexone 1.5mg QHS patient states she can not afford the medication and would like to discontinu e the medication . Of note patient has little relief with cyclobenza antwan. Patient reports good relief and denies adverse effects with tizanidine 4mg BID.We will continue. Patient does not need refill on diclofenac gel. Patient completed trigger point injections on 03/06/22 with good relief in pain we will repeat as needed. Opioid dependence [id number] F11.20 Long-term current use of opiate analgesic drug [id number] 63475 Z79.891 CSA renewed on 03/28/22. Opioid risk tool completed on 04/20/22. Patient scored 19 which is HIGH risk. Given HIGH score we will closely monitor the patient when we prescribe any controlled substances by performing frequent UT and send GCMS for EtOH and other illicit substances . GCMS from 04/20/2022 postive for pregabalin and negative for ETOH, Fentanyl and all other substances tested. The last drug screen was performed on 07/03/2022 and Positive for TCA and was negative for all other substances tested. Next recheck 09/24. [id number] Seferino Hendrix, [address], [address] [place] [address] 10/03/2022 12:43:26 10/03/2022 13:28:21 Lumbosacral radiculopathy [id number] M54.17 Patient has completed 6 weeks of physical therapy in the past 6 months with no relief of their pain. The patient also continues to use NSAIDS, rest, ice, heat, and physician- directed stretching exercises with no relief of their symptoms. The patient routinely experience s pain scores greater than 6 out of 10. The pain interferes with the patient's ability to perform their activities of daily living. Patient has symptoms of a lumbar radiculopa thy as well as corroborat ing physical exam findings such as a positive straight leg raise test. Recommend lumbar spine MRI to evaluate patient for any potential surgical and injection interventi ons such as epidural steroid injection. Patient deferred injections at this time given good response to pregabalin . Patient reports significan t relief pain with pregabalin 75mg TID. She endorses taking the medication as prescribed . We will continue with earliest refill 10/11/22. Patient will follow up in 28 days for medication refill. Patient's plan of care was reviewed by Dr. Hendrix who was present in office at time of evaluation and visit. Any new issues and patient complaints were reviewed with Dr. Hendrix and a plan of care was developed with his guidance. Fibromyalgia [id number] M 79.7 We started the patient on Low dose naltrexone 1.5mg QHS patient states she can not afford the medication and would like to discontinu e the medication . Of note patient has little relief with cyclobenza antwan. Patient reports good relief and denies adverse effects with tizanidine 4mg BID.We will continue with earliest refill 10/11/22. Patient does not need refill on diclofenac gel. Patient completed trigger point injections on 03/06/22 with good relief in pain we will repeat as needed. Long-term current use of opiate analgesic drug [id number] 78438 Z79.891 CSA renewed on 03/28/22. Opioid risk tool completed on 04/20/22. Patient scored 19 which is HIGH risk. Given HIGH score we will closely monitor the patient when we prescribe any controlled substances by performing frequent UT and send GCMS for EtOH and other illicit substances . GCMS from 04/20/2022 postive for pregabalin and negative for ETOH, Fentanyl and all other substances tested. The last drug screen was performed on 10/03/2022 and was negative for all other substances tested. Next recheck 01/24. We will send GCMS to screen for ETOH, prescribed medication , and unprescrib ed medication s. [id number] Seferino Hendrix, [address], [address] [place] [address] 11/08/2022 10:07:56 11/08/2022 10:47:00 Lumbosacral radiculopathy [id number] M54.17 She is doing very well with Lyrica and TPI. Defers spinal injections for now She does get very good relief with Lyrica. Denies any side effects.Rx sent today for Lyrica 75mg TID RTC 4 wks Patient's plan of care was reviewed by Dr. Hendrix who was present in office at time of evaluation and visit. Any new issues and patient complaints were reviewed with Dr. Hendrix and a plan of care was developed with his guidance. Fibromyalgia [id number] M 79.7 We started the patient on Low dose naltrexone 1.5mg QHS patient states she can not afford the medication and would like to discontinu e the medication . Of note patient has little relief with cyclobenza antwan. Patient reports good relief and denies adverse effects with tizanidine 4mg BID.Rx sent for Tizanidine 4mg BID. She does get good benefit with topical Diclofenac .Rx sent today Patient completed trigger point injections on 03/06/22 with good relief in pain we will repeat as needed. Long-term current use of opiate analgesic drug [id number] 60068 Z79.891 CSA renewed on 03/28/22. Opioid risk tool completed on 04/20/22. Patient scored 19 which is HIGH risk. Given HIGH score we will closely monitor the patient when we prescribe any controlled substances by performing frequent UT and send GCMS for EtOH and other illicit substances . GCMS 10/03/2022 (+) for Pregabalin . Negative for ETOH, Fentanyl, and all other tested substances next UT 01/2023 with full GCMS [id number] Seferino Hendrix [address], [address] [place] [phone] 11/14/2022 12:13:48 11/14/2022 12:24:04 Myalgia/myositis - multiple [id number] M79.12 Completed trigger point injections [id number] Seferino Hendrix [address], [address] [address] 12/08/2022 09:21:06 12/08/2022 10:20:02 Lumbosacral radiculopathy [id number] M54.17 She is doing very well with Lyrica and TPI. Defers spinal injections for now She does get very good relief with Lyrica. Denies any side effects.Pr eviously on Lyrica 75mg TID. She endorses having some difficulty with mid-day dose, as she will often forget. I will change to 100mg BID to help with medication compliance . She agrees w/ this plan. RTC 4 wks Patient's plan of care was reviewed by Dr. Hendrix who was present in office at time of evaluation and visit. Any new issues and patient complaints were reviewed with Dr. Hendrix and a plan of care was developed with his guidance. Fibromyalgia [id number] M 79.7 Previously had started on LDN. She was unable to continue as was cost prohibitiv e Of note patient has little relief with cyclobenza antwan. Patient reports good relief and denies adverse effects with tizanidine 4mg BID.Rx sent for Tizanidine 4mg BID. She does get good benefit with topical Diclofenac .Rx sent today Patient completed trigger point injections on 03/06/22 with good relief in pain we will repeat as needed. Long-term current use of opiate analgesic drug [id number] 16192 Z79.891 CSA renewed on 03/28/22. Opioid risk tool completed on 04/20/22. Patient scored 19 which is HIGH risk. Given HIGH score we will closely monitor the patient when we prescribe any controlled substances by performing frequent UT and send GCMS for EtOH and other illicit substances . GCMS 10/03/2022 (+) for Pregabalin . Negative for ETOH, Fentanyl, and all other tested substances next UT 01/2023 with full GCMS Neck pain [id number] M54.2 She is endorsing some worsening neck pain. I suspect this to be myofascial , but I will go ahead and obtain some baseline XRs. Review on follow up. [id number] DO KARLA Bond[address], [address] [place] [address] 01/10/2023 12:09:24 01/10/2023 12:59:43 Lumbosacral radiculopathy [id number] M54.17 She is doing very well with Lyrica and TPI. Defers spinal injections for now Currently on Lyrica 100mg BID. She denies any significan t side effects. She was occasional ly forgetting mid-day doses with TID dosing, and is doing much better w/ BID dosing.Rx sent today for Lyrica 100mg BID. RTC 4 wks Patient's plan of care was reviewed by Dr. Hendrix who was present in office at time of evaluation and visit. Any new issues and patient complaints were reviewed with Dr. Hendrix and a plan of care was developed with his guidance. Neck pain [id number] M54.2 She is endorsing some worsening neck pain. I suspect this to be myofascial , but I will go ahead and obtain some baseline c-spine XRs. She forgot to get XRs done. advised to obtain so we could review on follow up. Fibromyalgia [id number] M 79.7 s/p TPI (11/14/2022 ) with >50% improvemen t. repeat TPI as needed. Previously had started on LDN. She was unable to continue as was cost prohibitiv e No relief with cyclobenza antwan. She reports good relief and denies adverse effects with tizanidine .Will increase to 6mg BID given worsening symptoms.R x sent for Tizanidine 6mg BID. (Rx sent for 4mg tabs as insurance does not cover 6mg capsules) She does get good benefit with topical OTC Diclofenac (her insurance does not cover). Advised to continue. Long-term current use of opiate analgesic drug [id number] 50305 Z79.891 CSA renewed on 03/28/22. Opioid risk tool completed on 04/20/22. Patient scored 19 which is HIGH risk. Given HIGH score we will closely monitor the patient when we prescribe any controlled substances by performing frequent UT and send GCMS for EtOH and other illicit substances . GCMS 10/03/2022 (+) for Pregabalin . Negative for ETOH, Fentanyl, and all other tested substances POC UT today 01/10/2023 was (-) for all tested substances which is consistent (Pregabali n unavailabl e on POC testing). Will send out for full GCMS. Recheck UT w/ full GCMS 05/2023. Chronic mi graine without aura [id number] 10382 G43.709 Currently on Ajovy. Sees a neurologis t for migraine management , but she would like for us to take over this Rx. Advised to let us know when she is due for refills. For the past 3 months, she has had >9 migraines per month. She has tried Fioricet, amitriptyl ine, Topiramate , Depakote which was minimally helpful for her symptoms. She is already prescribed Propanolol . She cannot take NSAIDs due to concurrent use of [place]. We discussed Botox injections , which she would like to proceed with. She has not had botox injections in the past. [id number] ABNER VERA PA-C [address], [address] [place] [phone] 02/07/2023 13:31:50 02/07/2023 14:24:29 Lumbosacral radiculopathy [id number] M54.17 She is doing very well with Lyrica and TPI. Defers spinal injections for now Currently on Lyrica 100mg BID. She denies any significan t side effects. She was occasional ly forgetting mid-day doses with TID dosing, and is doing much better w/ BID dosing. Previously on 100mg BID, increased to 150mg BID because patient complained of increasing radicular pain. Pt is interested in epidural spinal injections . MRI of lower back ordered for worsening pain down legs, +Straight leg raise on exam, andfailure of conservati ve management with medication s. Schedule epidural injections . RTC 4 wks Patient's plan of care was reviewed by Dr. Hendrix who was present in office at time of evaluation and visit. Any new issues and patient complaints were reviewed with Dr. Hendrix and a plan of care was developed with his guidance. Neck pain [id number] M54.2 She is endorsing some worsening neck pain. I suspect this to be myofascial , but I will go ahead and obtain some baseline c-spine XRs. She forgot to get XRs done. advised to obtain so we could review on follow up. Fibromyalgia [id number] M 79.7 s/p TPI (11/14/2022 ) with >50% improvemen t. repeat TPI as needed. Previously had started on LDN. She was unable to continue as was cost prohibitiv e No relief with cyclobenza antwan. She reports good relief and denies adverse effects with tizanidine .Increased Tizanidine to 6mg BID at last follow up, however reports side effect of sedation. Will order for Tizanidine 4mg BID which patient found helpful without side effects. She does get good benefit with topical OTC Diclofenac (her insurance does not cover). Advised to continue. Chronic mi graine without aura [id number] 57888 G43.709 Currently on Ajovy. Sees a neurologis t for migraine management , but she would like for us to take over this Rx. Advised to let us know when she is due for refills. For the past 3 months, she has had >9 migraines per month. She has tried Fioricet, amitriptyl ine, Topiramate , Depakote which was minimally helpful for her symptoms. She is already prescribed Propanolol . She cannot take NSAIDs due to concurrent use of [place]. We discussed Botox injections , which she would like to proceed with. She has not had botox injections in the past. Pt reports that she requires refill for Ajovy as neurologis t is no longer prescribin g. Will order Ajovy. She is also interested in botox injections for migraines. Schedule for botox injections . Long-term current use of opiate analgesic drug [id number] 36864 Z79.891 CSA renewed on 03/28/22. Opioid risk tool completed on 04/20/22. Patient scored 19 which is HIGH risk. Given HIGH score we will closely monitor the patient when we prescribe any controlled substances by performing frequent UT and send GCMS for EtOH and other illicit substances . GCMS 10/03/2022 (+) for Pregabalin . Negative for ETOH, Fentanyl, and all other tested substances POC UT 01/10/2023 was (-) for all tested substances which is consistent (Pregabali n unavailabl e on POC testing).G CMS from last visit (01/10/23) (+) pregabalin which is consistent . Recheck UT w/ full GCMS 05/2023. [id number] Seferino Hendrix, [address], [address] [address] 03/02/2023 14:00:30 03/02/2023 14:27:08 Myalgia/myositis - multiple [id number] M79.12 Completed trigger point injections [id number] Seferino Hendrix, [address], [address] [address] 03/07/2023 14:52:05 03/07/2023 15:32:26 Lumbosacral radiculopathy 4612494 M54.17 She is doing very well with Lyrica and TPI. Currently on Lyrica 100mg BID. She denies any significan t side effects. She was occasional ly forgetting mid-day doses with TID dosing, and is doing much better w/ BID dosing.Pre viously on 100mg BID, increased to 150mg BID because patient complained of increasing radicular pain. However she was experienci ng daytime sedation with this dose. Will order for 100mg qAM and 200mg qPM. MRI results reviewed with patient. We discussed procedures such as blocks, epidural steroid injections . She would like to think these over before scheduling . RTC 4 wks Patient's plan of care was reviewed by Dr. Hendrix who was present in office at time of evaluation and visit. Any new issues and patient complaints were reviewed with Dr. Hendrix and a plan of care was developed with his guidance. Neck pain 52982086 M54.2 She is endorsing some worsening neck pain. I suspect this to be myofascial , but I will go ahead and obtain some baseline c-spine XRs. She went to have XRs done at [facility], they did not have record of order. Will reorder. Fibromyalgia [id number] M 79.7 s/p TPI (11/14/2022 ) with >50% improvemen t.s/p TPI 03/02/23 with >70% improvemen t. repeat TPI as needed. Previously had started on LDN. She was unable to continue as was cost prohibitiv e No relief with cyclobenza antwan. She reports good relief and denies adverse effects with tizanidine .Continue Tizanidine 4mg BID which patient found helpful without side effects. Higher doses caused side effects. She does get good benefit with topical OTC Diclofenac (her insurance does not cover). Advised to continue. Chronic mi graine without aura [id number] 14286 G43.709 Currently on Ajovy. Sees a neurologis t for migraine management , but she would like for us to take over this Rx. Advised to let us know when she is due for refills. For the past 3 months, she has had >9 migraines per month. She has tried Fioricet, amitriptyl ine, Topiramate , Depakote which was minimally helpful for her symptoms. She is already prescribed Propanolol . She cannot take NSAIDs due to concurrent use of [place]. We discussed Botox injections , which she would like to proceed with. She has not had botox injections in the past. Scheduled for botox injection. Long-term drug therapy [id number] Z79.899 CSA renewed on 03/28/22. Opioid risk tool completed on 04/20/22. Patient scored 19 which is HIGH risk. Given HIGH score we will closely monitor the patient when we prescribe any controlled substances by performing frequent UT and send GCMS for EtOH and other illicit substances . GCMS 10/03/2022 (+) for Pregabalin . Negative for ETOH, Fentanyl, and all other tested substances POC UT 01/10/2023 was (-) for all tested substances which is consistent (Pregabali n unavailabl e on POC testing).[facility] (01/10/23) (+) pregabalin which is consistent . Recheck UT w/ full GCMS 05/2023. [id number] DO ERIKA GREEN [address] [place] [address], [address] [place] [address] 04/04/2023 16:33:43 04/04/2023 17:29:00 Lumbosacral radiculopathy [id number] M54.17 She is doing very well with Lyrica and TPI. Patient is on lyrica, doses of 150mg BID caused sedation. She has been trying 100mg qAM and 200mg qPM, but finds she has sedation with the morning dosing. She feels the lyrica has been really helpful and would like to continue it, but wants to keep morning doses low. Discussed trialling 25mg in the morning, 25mg in the afternoon, and 200mg at bedtime dosing, which she would like to proceed with. Will send rx today. MRI results reviewed with patient. We discussed procedures such as blocks, epidural steroid injections . She would like to think these over before scheduling . RTC 4 wks Patient's plan of care was reviewed by Dr. Hendrix who was present in office at time of evaluation and visit. Any new issues and patient complaints were reviewed with Dr. Hendrix and a plan of care was developed with his guidance. Neck pain [id number] M54.2 She is endorsing some worsening neck pain. I suspect this to be myofascial , but I will go ahead and obtain some baseline c-spine XRs. She has not yet gotten these done. She plans to do them before the next visit. Fibromyalgia [id number] M 79.7 s/p TPI (11/14/2022 ) with >50% improvemen t.s/p TPI 03/02/23 with >70% improvemen t. repeat TPI as needed. Previously had started on LDN. She was unable to continue as was cost prohibitiv e No relief with cyclobenza antwan. She has done well with tizanidine but finds it makes her sleepy.She is finding good effect with methocarba mol 500mg, which she takes BID or TID and it is not causing sedation. Discussed increasing to 750mg TID, she is amenable to do so. Will send rx today. She does get good benefit with topical OTC Diclofenac (her insurance does not cover). Advised to continue. Chronic mi graine without aura [id number] 19177 G43.709 Currently on Ajovy. Sees a neurologis t for migraine management , but she would like for us to take over this Rx. Advised to let us know when she is due for refills. For the past 3 months, she has had >15 migraines per month. She has tried Fioricet, amitriptyl ine, Topiramate , Depakote which was minimally helpful for her symptoms. She is already prescribed Propanolol , Pregabalin and Sumatripta n. She cannot take NSAIDs due to concurrent use of [place]. We discussed Botox injections , which she would like to proceed with. She has not had botox injections in the past. Scheduled for botox injection. Long-term drug therapy [id number] Z79.899 CSA renewed on 03/28/22. Opioid risk tool completed on 04/20/22. Patient scored 19 which is HIGH risk. Given HIGH score we will closely monitor the patient when we prescribe any controlled substances by performing frequent UT and send GCMS for EtOH and other illicit substances . GCMS 10/03/2022 (+) for Pregabalin . Negative for ETOH, Fentanyl, and all other tested substances GCMS 01/10/23 (+) pregabalin which is consistent . Recheck UT w/ full GCMS 05/2023. [id number] ANNE MARTINEZ DO [address], [address] [place] [address] 04/25/2023 08:16:39 04/25/2023 09:00:56 Chronic migraine without aura [id number] 96672 G43.709 performed botox injection today under US guidance will repeat in 3 months. [id number] ANNE MATRINEZ DO [address], [address] [place] [address] 05/04/2023 10:00:29 05/04/2023 10:50:25 Lumbosacral radiculopathy 8973995 M54.17 She is doing very well with Lyrica and TPI. Patient is on lyrica, doses of 150mg BID caused sedation. She has been trying 100mg qAM and 200mg qPM, but finds she has sedation with the morning dosing. She feels the lyrica has been really helpful and would like to continue it, but wants to keep morning doses low.Recent ly adjusted Lyrica dosing to 50mg/200mg , which she actually is doing quite well with. Will continue with this dose. She prefers 25mg capsules to adjust daytime dosing. MRI lumbar results reviewed. She defers spinal injections for now, but may consider if symptoms worsen. RTC 4 wks Patient's plan of care was reviewed by Dr. Hendrix who was present in office at time of evaluation and visit. Any new issues and patient complaints were reviewed with Dr. Hendrix and a plan of care was developed with his guidance. Neck pain [id number] M54.2 She is endorsing some worsening neck pain. I suspect this to be myofascial , but I will go ahead and obtain some baseline c-spine XRs. She has not yet gotten these done. She plans to do them before the next visit. Fibromyalgia [id number] M [age] s/p TPI (11/14/2022 ) with >50% improvemen t.s/p TPI (03/02/2023 ) with >70% improvemen t. repeat TPI as needed. Previously had started on LDN. She was unable to continue as was cost prohibitiv e No relief with cyclobenza antwan. She has done well with tizanidine in the past, but finds it makes her sleepy. Currently on methocarba mol 750mg BID which does help.She would like to try a higher dose. Will send Rx for methocarba mol 1000mg BID. She does get good benefit with topical OTC Diclofenac (her insurance does not cover). Advised to continue. Chronic mi graine without aura [id number] G43.709 Currently on Ajovy. Sees a neurologis t for migraine management , but she would like for us to take over this Rx.Advised to let us know when she is due for refills. For the past 3 months, she has had >15 migraines per month. She has tried Fioricet, amitriptyl ine, Topiramate , Depakote which was minimally helpful for her symptoms. She is already prescribed Propanolol , Pregabalin and Sumatripta n. She cannot take NSAIDs due to concurrent use of [place]. Given failure of these other measures, and given excellent therapeuti c response to s/p botox injection ( 3) with 85-90% improvemen t. She notes still with some minor migraine headaches, but the severity is significan tly improved (at worst 2/10) as well duration (lasts less than 1 hour). Long-term drug therapy [id number] Z79.899 CSA renewed on 03/28/22. Opioid risk tool completed on 04/20/22. Patient scored 19 which is HIGH risk. Given HIGH score we will closely monitor the patient when we prescribe any controlled substances by performing frequent UT and send GCMS for EtOH and other illicit substances . GCMS 10/03/2022 (+) for Pregabalin . Negative for ETOH, Fentanyl, and all other tested substances GCMS 01/10/23 (+) pregabalin which is consistent . POC UT today (-) for all tested substances which is consistent . GCMS screen sent. Recheck UT 08/2023 [id number] DO KARLA GREEN[address], [address] [place] [address] 06/01/2023 14:03:57 06/01/2023 14:22:35 Lumbosacral radiculopathy [id number] M54.17 She is doing very well with Lyrica and TPI. Patient is on lyrica, doses of 150mg BID caused sedation. She has been trying 100mg qAM and 200mg qPM, but finds she has sedation with the morning dosing. She feels the lyrica has been really helpful and would like to continue it, but wants to keep morning doses low.Recent ly adjusted Lyrica dosing to 50mg/200mg , which she actually is doing quite well with. Will continue with this dose. She prefers 25mg capsules to adjust daytime dosing. Patient reports having enough of the lyrica 25mg tabs to get her to next visit in four weeks, will not send rx today. She has three weeks of lyrica 100mg, will send 1 week supply for 4 week follow up. MRI lumbar results reviewed. She defers spinal injections for now, but may consider if symptoms worsen. RTC 4 wks Patient's plan of care was reviewed by Dr. Hendrix who was present in office at time of evaluation and visit. Any new issues and patient complaints were reviewed with Dr. Hendrix and a plan of care was developed with his guidance. Neck pain [id number] M54.2 Patient reports today resolution of neck pain following botox injections . She was ordered for c-spine XR, which she has not gotten done yet. Given this improvemen t, will hold off XR for now. Fibromyalgia [id number] M [age] s/p TPI (11/14/2022 ) with >50% improvemen t.s/p TPI (03/02/2023 ) with >70% improvemen t. repeat TPI as needed. Previously had started on LDN. She was unable to continue as was cost prohibitiv e No relief with cyclobenza antwan. She has done well with tizanidine in the past, but finds it makes her sleepy. Currently on methocarba mol,raised from 750mg BID to 1000mg BID at last visit, which she has found helpful. She reports having three weeks supply at home, will send one week supply today. She does get good benefit with topical OTC Diclofenac (her insurance does not cover). Advised to continue. Chronic mi graine without aura [id number] G43.709 Currently on Ajovy. Sees a neurologis t for migraine management , but she would like for us to take over this Rx.Patient requires refill today, will send. For the past 3 months, she has had >15 migraines per month. She has tried Fioricet, amitriptyl ine, Topiramate , Depakote which was minimally helpful for her symptoms. She is already prescribed Propanolol , Pregabalin and Sumatripta n. She cannot take NSAIDs due to concurrent use of [place]. Given failure of these other measures, and given excellent therapeuti c response to s/p botox injection ( 3) with 85-90% improvemen t. She notes still with some minor migraine headaches, but the severity is significan tly improved (at worst 2/10) as well duration (lasts less than 1 hour).She reports today 1 minor headache since last visit and is very happy with results from botox injections . Long-term drug therapy [id number] Z79.899 CSA renewed on 03/28/22. Opioid risk tool completed on 04/20/22. Patient scored 19 which is HIGH risk. Given HIGH score we will closely monitor the patient when we prescribe any controlled substances by performing frequent UT and send GCMS for EtOH and other illicit substances . GCMS 10/03/2022 (+) for Pregabalin . Negative for ETOH, Fentanyl, and all other tested substances GCMS 8/9/23 (+) pregabalin which is consistent . POC UT 05/04/23 (+) pregabalin , negative all other tested substances . This is consistent . Recheck UT 08/2023 [id number] Seferino Hendrix DO [address], [address] [place] [address] 07/11/2023 13:39:26 07/11/2023 14:10:14 Lumbosacral radiculopathy [id number] M54.17 She is doing very well with Lyrica and TPI. Patient is on lyrica, doses of 150mg BID caused sedation. She has been trying 100mg qAM and 200mg qPM, but finds she has sedation with the morning dosing. She feels the lyrica has been really helpful and would like to continue it, but wants to keep morning doses low.Recent ly adjusted Lyrica dosing to 50mg/200mg , which she actually is doing quite well with. She does report she typically takes only 25mg in the morning d/t sedation. Will send rx today for lyrica 25mg once in morning and lyrica 100mg two tabs at bedtime. MRI lumbar results reviewed. She defers spinal injections for now, but may consider if symptoms worsen. RTC 4 wks Patient's plan of care was reviewed by Dr. Hendrix who was present in office at time of evaluation and visit. Any new issues and patient complaints were reviewed with Dr. Hendrix and a plan of care was developed with his guidance. Neck pain [id number] M54.2 Patient reports today resolution of neck pain following botox injections . She was ordered for c-spine XR, which she has not gotten done yet. Given this improvemen t, will hold off XR for now. Fibromyalgia [id number] M [age] s/p TPI (11/14/2022 ) with >50% improvemen t.s/p TPI (03/02/2023 ) with >70% improvemen t. repeat TPI as needed. Previously had started on LDN. She was unable to continue as was cost prohibitiv e No relief with cyclobenza antwan. She has done well with tizanidine in the past, but finds it makes her sleepy. Currently on methocarba [id number] BID. Will send rx today for methocarba mol 500mg, two tabs BID as needed. She does get good benefit with topical OTC Diclofenac (her insurance does not cover). Advised to continue. Chronic mi graine without aura [id number] G43.709 Currently on Ajovy. Sees a neurologis t for migraine management , but she would like for us to take over this Rx.Patient requires refill today, will send. For the past 3 months, she has had >15 migraines per month. She has tried Fioricet, amitriptyl ine, Topiramate , Depakote which was minimally helpful for her symptoms. She is already prescribed Propanolol , Pregabalin and Sumatripta n. She cannot take NSAIDs due to concurrent use of [place]. Given failure of these other measures, and given excellent therapeuti c response to s/p botox injection () with 85-90% improvemen t. She notes still with some minor migraine headaches, but the severity is significan tly improved (at worst 2/10) as well duration (lasts less than 1 hour).She reports today 1 minor headache since last visit and is very happy with results from botox injections . Long-term drug therapy [id number] Z79.899 CSA renewed on 03/28/22. Opioid risk tool completed on 04/20/22. Patient scored 19 which is HIGH risk. Given HIGH score we will closely monitor the patient when we prescribe any controlled substances by performing frequent UT and send GCMS for EtOH and other illicit substances . GCMS 10/03/2022 (+) for Pregabalin . Negative for ETOH, Fentanyl, and all other tested substances GCMS 01/10/23 (+) pregabalin which is consistent . POC UT 05/04/23 (+) pregabalin , negative all other tested substances . This is consistent . Recheck UT 08/2023 [id number] Seferino Hendrix [address], [address] [address] 07/12/2023 16:16:20 07/12/2023 16:45:07 Muscle pain [id number] M79.12 Completed TPI under [place] guidance [id number] ANNE MARTINEZ [address], [address] [address] 07/26/2023 13:18:39 07/26/2023 14:17:15 Chronic migraine without aura [id number] G43.709 performed botox injection today under [place] guidance will repeat in 3 months. [id number] DO ERIKA Bond [address] [place] [address], [address] [place] [address] 08/08/2023 12:58:39 08/08/2023 13:34:06 Lumbosacral radiculopathy [id number] M54.17 She is doing very well with Lyrica and TPI.She reports recent worsening of bilateral low back pain with radiation to bilateral lower extremity. Discussed epidural steroid injection with her, which she would like to try. Given pain is bilateral in nature, recommend intralamin ar epidural steroid injection. Will schedule. Patient is on lyrica, doses of 150mg BID caused sedation. She has been trying 100mg qAM and 200mg qPM, but finds she has sedation with the morning dosing. She feels the lyrica has been really helpful and would like to continue it, but wants to keep morning doses low.Recent ly adjusted Lyrica dosing to 50mg/200mg , which she actually is doing quite well with. She does report she typically takes only 25mg in the morning d/t sedation, but given worsening of pain she would like to try 50mg in the morning again.. Will send rx today for lyrica 50mg once in morning and lyrica 100mg two tabs at bedtime. MRI lumbar results reviewed at previous visit. RTC 4 wks Patient's plan of care was reviewed by Dr. Hendrix who was present in office at time of evaluation and visit. Any new issues and patient complaints were reviewed with Dr. Hendrix and a plan of care was developed with his guidance. Imaging studies reviewed with patient today that demonstrat e significan t spinal stenosis. Patient reports symptoms of a radiculopa thy in addition to corroborat ing physical exam findings such as positive straight leg raise test. Patient has completed 6 weeks of physical therapy in the past 6 months with no relief of their pain. The patient also continues to use NSAIDS, rest, ice, heat, and physician- directed stretching exercises with no relief of their symptoms. The patient routinely experience s pain scores greater than 6 out of 10. The pain interferes with the patient's ability to perform their activities of daily living. Recommend lumbar epidural steroid injection under fluoroscop ic guidance. Neck pain [id number] M54.2 Patient reports today resolution of neck pain following botox injections . She was ordered for c-spine XR, which she has not gotten done yet. Given this improvemen t, will hold off XR for now. Fibromyalgia [id number] M 77.7 s/p TPI (11/14/2022 ) with >50% improvemen t.s/p TPI (03/02/2023 ) with >70% improvemen t. repeat TPI as needed. Previously had started on LDN. She was unable to continue as was cost prohibitiv e No relief with cyclobenza antwan. She has done well with tizanidine in the past, but finds it makes her sleepy. Currently on methocarba mol 1000mg BID.Will send rx today for methocarba mol 500mg, two tabs BID as needed. She does get good benefit with topical OTC Diclofenac (her insurance does not cover). Advised to continue. Chronic mi graine without aura [id number] 79765 G43.709 Currently on Ajovy. Sees a neurologis t for migraine management , but she would like for us to take over this Rx.Does not need refill today. For the past 3 months, she has had >15 migraines per month. She has tried Fioricet, amitriptyl ine, Topiramate , Depakote which was minimally helpful for her symptoms. She is already prescribed Propanolol , Pregabalin and Sumatripta n. She cannot take NSAIDs due to concurrent use of [place]. Given failure of these other measures, and given excellent therapeuti c response to s/p botox injection ( 3) with 85-90% improvemen t.s/p Botox injection (07/12/2023) with 85% improvemen t. She reports quantity of migraines is typically 2-3/month, previously was having >15/month repeat as needed Long-term drug therapy [id number] Z79.899 CSA renewed on 03/28/22. Opioid risk tool completed on 04/20/22. Patient scored 19 which is HIGH risk. Given HIGH score we will closely monitor the patient when we prescribe any controlled substances by performing frequent UT and send GCMS for EtOH and other illicit substances . GCMS 10/03/2022 (+) for Pregabalin . Negative for ETOH, Fentanyl, and all other tested substances GCMS 01/10/23 (+) pregabalin which is consistent . POC UT 05/04/23 (+) pregabalin , negative all other tested substances . This is consistent . POC UT today for negative all tested substances . This is consistent as patient is on pregabalin , which was not tested on point-of-c are UTI. Will send for full GCMS. Repeat UT 11/25 [id number] Seferino Hendrix, [address], [address] [place] [address] 09/05/2023 13:24:10 09/05/2023 14:22:41 Lumbosacral radiculopathy [id number] M54.17 She is doing very well with Lyrica and TPI.She reports recent worsening of bilateral low back pain with radiation to bilateral lower extremity. Discussed epidural steroid injection with her, which she would like to try. Given pain is bilateral in nature, recommend intralamin ar epidural steroid injection. This is scheduled. She requests pre-proced ural anxiolytic , has done well with ativan in the past. Will send rx today for lorazepam 0.5mg, #2 tabs. Patient is on lyrica, doses of 150mg BID caused sedation. She has been trying 100mg qAM and 200mg qPM, but finds she has sedation with the morning dosing. She feels the lyrica has been really helpful and would like to continue it, but wants to keep morning doses low.Recent ly adjusted Lyrica dosing to 50mg/200mg , which she actually is doing quite well with. She does report she typically takes only 25mg in the morning and the afternoon. Will send rx today for lyrica 25mg in morning and afternoon and lyrica 100mg two tabs at bedtime. MRI lumbar results reviewed at previous visit. RTC 4 wks Patient's plan of care was reviewed by Dr. Hendrix who was present in office at time of evaluation and visit. Any new issues and patient complaints were reviewed with Dr. Hendrix and a plan of care was developed with his guidance. Imaging studies reviewed with patient today that demonstrat e significan t spinal stenosis. Patient reports symptoms of a radiculopa thy in addition to corroborat ing physical exam findings such as positive straight leg raise test. Patient has completed 6 weeks of physical therapy in the past 6 months with no relief of their pain. The patient also continues to use NSAIDS, rest, ice, heat, and physician- directed stretching exercises with no relief of their symptoms. The patient routinely experience s pain scores greater than 6 out of 10. The pain interferes with the patient's ability to perform their activities of daily living. Recommend lumbar epidural steroid injection under fluoroscop ic guidance. Neck pain [id number] M54.2 Patient reports today resolution of neck pain following botox injections . She was ordered for c-spine XR, which she has not gotten done yet. Given this improvemen t, will hold off XR for now. Fibromyalgia [id number] M 77.7 s/p TPI (11/14/2022 ) with >50% improvemen t.s/p TPI (03/02/2023 ) with >70% improvemen t. repeat TPI as needed. Previously had started on LDN. She was unable to continue as was cost prohibitiv e No relief with cyclobenza antwan. She has done well with tizanidine in the past, but finds it makes her sleepy. Currently on methocarba mol 1000mg BID.Will send rx today for methocarba mol 500mg, two tabs BID as needed. She does get good benefit with topical OTC Diclofenac (her insurance does not cover). Advised to continue. Chronic mi graine without aura [id number] G43.709 Currently on Ajovy. Sees a neurologis t for migraine management , but she would like for us to take over this Rx.Does not need refill today. For the past 3 months, she has had >15 migraines per month. She has tried Fioricet, amitriptyl ine, Topiramate , Depakote which was minimally helpful for her symptoms. She is already prescribed Propanolol , Pregabalin and Sumatripta n. She cannot take NSAIDs due to concurrent use of [place]. Given failure of these other measures, and given excellent therapeuti c response to s/p botox injection () with 85-90% improvemen t.s/p Botox injection (07/12/2023) with 85% improvemen t. She reports quantity of migraines is typically 2-3/month, previously was having >15/month repeat as needed Long-term drug therapy [id number] Z79.899 CSA renewed on 03/28/22. Opioid risk tool completed on 04/20/22. Patient scored 19 which is HIGH risk. Given HIGH score we will closely monitor the patient when we prescribe any controlled substances by performing frequent UT and send GCMS for EtOH and other illicit substances . GCMS 10/03/2022 (+) for Pregabalin . Negative for ETOH, Fentanyl, and all other tested substances GCMS 01/10/23 (+) pregabalin which is consistent . POC UT 05/04/23 (+) pregabalin , negative all other tested substances . This is consistent . POC UT negative all tested substances . This is consistent as patient is on pregabalin , which was not tested on point-of-c are UT. GCMS did not result. POC UT today 09/05/23 negative all tested substances . This is consistent as patient is on pregabalin , which was not tested on point-of-c are UT - will send GCMS. She does report getting ativan at ED several days ago- reviewed note by ARELI Tariq on 09/02/23 from [facility] confirming this. Repeat UT 12/25 [id number] ANNE MARTINEZ DO [address], [address] [place] [address] 09/13/2023 16:35:05 09/13/2023 17:19:37 Lumbosacral radiculopathy [id number] M54.17 L5/S1 interlamin ar epidural steroid inj done today under fluoroscop ic guidance [id number] ANNE MARTINEZ DO [address], [address] [place] [address] 10/05/2023 11:10:46 10/05/2023 11:58:21 Lumbosacral radiculopathy 5038434 M54.17 She is doing very well with Lyrica and TPI.She reports recent worsening of bilateral low back pain with radiation to bilateral lower extremity. S/p L5/S1 interlamin ar epidural steroid inj 09/13/23 with about 30 % improvemen t in radicular symptoms. She endorse she still has some shooting pains with activty. She is not sure if this occur in once leg more than the other. Although she did not get complete relief with IESI she would try this again in the future as it did help. She endorse her pain occurs primarily with activity such as lifting and prolonged walking. She does not tolerate lumbar support braces. We discussed PT for core strengthen ing. She would like to try this.We recently adjusted Lyrica dosing to 50mg am and 200mg pm , which she continues to do well with. She has no grogginess with this dosing. Due ongoing radicular symptoms she would like to try midday dosing again. Will send rx today for lyrica 50 mg in morning and 50 afternoon and lyrica 200 mg at bedtime. RTC 4 wks Patient's plan of care was reviewed by Dr. Martinez who was present in office at time of evaluation and visit. Any new issues and patient complaints were reviewed by Dr. Martinez and a plan of care was approved by him. Imaging studies reviewed with patient today that demonstrat e significan t spinal stenosis. Patient reports symptoms of a radiculopa thy in addition to corroborat ing physical exam findings such as positive straight leg raise test. Patient has completed 6 weeks of physical therapy in the past 6 months with no relief of their pain. The patient also continues to use NSAIDS, rest, ice, heat, and physician- directed stretching exercises with no relief of their symptoms. The patient routinely experience s pain scores greater than 6 out of 10. The pain interferes with the patient's ability to perform their activities of daily living. Recommend lumbar epidural steroid injection under fluoroscop ic guidance. Neck pain [id number] M54.2 Patient reports today resolution of neck pain following botox injections . She was ordered for c-spine XR, which she has not gotten done yet. Given this improvemen t, will hold off XR for now. Fibromyalgia [id number] M 77.7 s/p TPI (11/14/2022 ) with >50% improvemen t.s/p TPI (03/02/2023 ) with >70% improvemen t. repeat TPI as needed. Previously had started on LDN. She was unable to continue as was cost prohibitiv e No relief with cyclobenza antwan. She has done well with tizanidine in the past, but finds it makes her sleepy. Currently on methocarba mol 1000mg BID.Will send rx today for methocarba mol 500mg, two tabs BID as needed. She does get good benefit with topical OTC Diclofenac (her insurance does not cover). Advised to continue. Chronic mi graine without aura [id number] 05468 G43.709 Currently on Ajovy. Sees a neurologis t for migraine management , but she would like for us to take over this Rx.Does not need refill today. For the past 3 months, she has had >15 migraines per month. She has tried Fioricet, amitriptyl ine, Topiramate , Depakote which was minimally helpful for her symptoms. She is already prescribed Propanolol , Pregabalin and Sumatripta n. She cannot take NSAIDs due to concurrent use of [place]. s/p botox injection () with 85-90% improvemen t.s/p Botox injection (07/12/2023) with 85% improvemen t. She reports quantity of migraines is typically 2-3/month, previously was having >15/month repeat as needed Reports she had a migraine this week that kept recurring in post of medication s. She reports it finally abated yesterday. Long-term drug therapy [id number] Z79.899 CSA renewed on 03/28/22. Opioid risk tool completed on 04/20/22. Patient scored 19 which is HIGH risk. Given HIGH score we will closely monitor the patient when we prescribe any controlled substances by performing frequent UT and send GCMS for EtOH and other illicit substances . GCMS 10/03/2022 (+) for Pregabalin . Negative for ETOH, Fentanyl, and all other tested substances GCMS 01/10/23 (+) pregabalin which is consistent . POC UT 05/04/23 (+) pregabalin , negative all other tested substances . This is consistent . POC UT negative all tested substances . This is consistent as patient is on pregabalin , which was not tested on point-of-c are UT. GCMS did not result. POC UT 09/05/23 negative all tested substances . This is consistent as patient is on pregabalin , which was not tested on point-of-c are UT - will send GCMS. She does report getting ativan at ED several days ago- reviewed note by ARELI Tariq on 09/02/23 from [facility] confirming this. GCMS 09/05/23 (+) pregabalin and negative all tested substances . This is consistent as patient is prescribed pregabalin . Repeat UT 01/25 [id number] DO KARLA Bond[address], [address] [place] [address] 11/08/2023 16:07:34 11/08/2023 16:44:55 Lumbosacral radiculopathy [id number] M54.17 She is doing very well with Lyrica and TPI.She reports recent worsening of bilateral low back pain with radiation to bilateral lower extremity. S/p L5/S1 interlamin ar epidural steroid inj 09/13/23, initially had about 30% improvemen t though she now reports more improvemen t in the last month. She is still having some radicular symptoms down the left leg- finds right leg is not affected. She may benefit from transforam inal approach at next epidural. She endorse her pain occurs primarily with activity such as lifting and prolonged walking. She does not tolerate lumbar support braces. 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 She does reports increased drowsiness with midday dose. She would prefer to try lyrica 25mg in AM, 25mg midday, and 200mg at HS to keep flexibilit y with AM/afterno on dosing. She does not need 25mg caps today, has supply at home. Will send rx for lyrica 100mmg, #2 caps daily at bedtime. RTC 4 wks Patient's plan of care was reviewed by Dr. Hendrix who was present in office at time of evaluation and visit. Any new issues and patient complaints were reviewed by Dr. Hendrix and a plan of care was approved by him. Imaging studies reviewed with patient today that demonstrat e significan t spinal stenosis. Patient reports symptoms of a radiculopa thy in addition to corroborat ing physical exam findings such as positive straight leg raise test. Patient has completed 6 weeks of physical therapy in the past 6 months with no relief of their pain. The patient also continues to use NSAIDS, rest, ice, heat, and physician- directed stretching exercises with no relief of their symptoms. The patient routinely experience s pain scores greater than 6 out of 10. The pain interferes with the patient's ability to perform their activities of daily living. Recommend lumbar epidural steroid injection under fluoroscop ic guidance. Neck pain [id number] M54.2 Patient reports today resolution of neck pain following botox injections . She was ordered for c-spine XR, which she has not gotten done yet. Given this improvemen t, will hold off XR for now. Fibromyalgia [id number] M 77.7 s/p TPI (11/14/2022 ) with >50% improvemen t.s/p TPI (03/02/2023 ) with >70% improvemen t. repeat TPI as needed. Previously had started on LDN. She was unable to continue as was cost prohibitiv e No relief with cyclobenza antwan. She has done well with tizanidine in the past, but finds it makes her sleepy. Currently on methocarba mol 1000mg BID.Will send rx today for methocarba mol 500mg, two tabs BID as needed. She does get good benefit with topical OTC Diclofenac (her insurance does not cover). Advised to continue. Chronic mi graine without aura [id number] G43.709 Currently on Ajovy. Sees a neurologis t for migraine management , but she would like for us to take over this Rx.Does not need refill today. For the past 3 months, she has had >15 migraines per month. She has tried Fioricet, amitriptyl ine, Topiramate , Depakote which was minimally helpful for her symptoms. She is already prescribed Propanolol , Pregabalin and Sumatripta n. She cannot take NSAIDs due to concurrent use of [place]. s/p botox injection () with 85-90% improvemen t.s/p Botox injection (07/12/2023) with 85% improvemen t. She reports quantity of migraines is typically 2-3/month, previously was having >15/month repeat as needed Long-term drug therapy [id number] Z79.899 CSA renewed on 03/28/22. Opioid risk tool completed on 04/20/22. Patient scored 19 which is HIGH risk. Given HIGH score we will closely monitor the patient when we prescribe any controlled substances by performing frequent UT and send GCMS for EtOH and other illicit substances . GCMS 10/03/2022 (+) for Pregabalin . Negative for ETOH, Fentanyl, and all other tested substances GCMS 01/10/23 (+) pregabalin which is consistent . POC UT 05/04/23 (+) pregabalin , negative all other tested substances . This is consistent . POC UT negative all tested substances . This is consistent as patient is on pregabalin , which was not tested on point-of-c are UT. GCMS did not result. POC UT 09/05/23 negative all tested substances . This is consistent as patient is on pregabalin , which was not tested on point-of-c are UT - will send GCMS. She does report getting ativan at ED several days ago- reviewed note by ARELI Tariq on 09/02/23 from [facility] confirming this. GCMS 09/05/23 (+) pregabalin and negative all tested substances . This is consistent as patient is prescribed pregabalin . Repeat UT 01/25 [id number] ANNE MARTINEZ DO [address], [address] [place] [address] 12/03/2023 09:50:39 12/03/2023 10:07:00 Chronic migraine without aura [id number] G43.709 pending delivery of botox medication s. will resubmit orders She also requests refills for Ajovy. Will send Rx today. Muscle pain [id number] M79 .12 since completion of lumbar EPI, she has had significan t improvemen t in axial LBP; she feels she does not need further TPI. can repeat lumbar EPI as needed [id number] Seferino Hendrix [address], [address] [place] [address] 12/05/2023 16:14:49 12/05/2023 17:12:52 Lumbosacral radiculopathy [id number] M54.17 She is doing very well with Lyrica and TPI.She reports recent worsening of bilateral low back pain with radiation to bilateral lower extremity. S/p L5/S1 interlamin ar epidural steroid inj 09/13/23, initially had about 30% improvemen t though she now reports full resolution of back pain and sciatica. She endorse her pain occurs primarily with activity such as lifting and prolonged walking. She does not tolerate lumbar support braces. 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 She does reports increased drowsiness with midday dose. She would prefer to try lyrica 25mg in AM, 25mg midday, and 200mg at HS to keep flexibilit y with AM/afterno on dosing. Will send rx for lyrica 25mg twice daily and 100mg, #2 caps daily at bedtime. RTC 4 wks Patient's plan of care was reviewed by Dr. Hendrix who was present in office at time of evaluation and visit. Any new issues and patient complaints were reviewed by Dr. Hendrix and a plan of care was approved by him. Imaging studies reviewed with patient today that demonstrat e significan t spinal stenosis. Patient reports symptoms of a radiculopa thy in addition to corroborat ing physical exam findings such as positive straight leg raise test. Patient has completed 6 weeks of physical therapy in the past 6 months with no relief of their pain. The patient also continues to use NSAIDS, rest, ice, heat, and physician- directed stretching exercises with no relief of their symptoms. The patient routinely experience s pain scores greater than 6 out of 10. The pain interferes with the patient's ability to perform their activities of daily living. Recommend lumbar epidural steroid injection under fluoroscop ic guidance. Neck pain [id number] M54.2 Patient reports today resolution of neck pain following botox injections . She was ordered for c-spine XR, which she has not gotten done yet. Given this improvemen t, will hold off XR for now. Fibromyalgia [id number] M [age] s/p TPI (11/14/2022 ) with >50% improvemen t.s/p TPI (03/02/2023 ) with >70% improvemen t. since completion of lumbar YESY, she feels she does not need further TPI Previously had started on LDN. She was unable to continue as was cost prohibitiv e No relief with cyclobenza antwan. She has done well with tizanidine in the past, but finds it makes her sleepy. Currently on methocarba mol 1000mg BID.Will send rx today for methocarba mol 500mg, two tabs BID as needed. She does get good benefit with topical OTC Diclofenac (her insurance does not cover). Advised to continue. Chronic mi graine without aura [id number] 32115 G43.709 Currently on Ajovy. Sees a neurologis t for migraine management , but she would like for us to take over this Rx.Does not need refill today. For the past 3 months, she has had >15 migraines per month. She has tried Fioricet, amitriptyl ine, Topiramate , Depakote which was minimally helpful for her symptoms. She is already prescribed Propanolol , Pregabalin and Sumatripta n. She cannot take NSAIDs due to concurrent use of [place]. s/p botox injection () with 85-90% improvemen t.s/p Botox injection (07/12/2023) with 85% improvemen t. She reports quantity of migraines is typically 2-3/month, previously was having >15/month repeat as needed Long-term drug therapy [id number] Z79.899 CSA renewed on 03/28/22. Opioid risk tool completed on 04/20/22. Patient scored 19 which is HIGH risk. Given HIGH score we will closely monitor the patient when we prescribe any controlled substances by performing frequent UT and send GCMS for EtOH and other illicit substances . GCMS 10/03/2022 (+) for Pregabalin . Negative for ETOH, Fentanyl, and all other tested substances GCMS 01/10/23 (+) pregabalin which is consistent . POC UT 05/04/23 (+) pregabalin , negative all other tested substances . This is consistent . POC UT negative all tested substances . This is consistent as patient is on pregabalin , which was not tested on point-of-c are UT. GCMS did not result. POC UT 09/05/23 negative all tested substances . This is consistent as patient is on pregabalin , which was not tested on point-of-c are UT - will send GCMS. She does report getting ativan at ED several days ago- reviewed note by ARELI Tariq on 09/02/23 from [facility] confirming this. GCMS 09/05/23 (+) pregabalin and negative all tested substances . This is consistent as patient is prescribed pregabalin . Repeat UT 01/25 [id number] Seferino Hendrix, [address], [address] [place] [address] 01/01/2024 11:35:16 01/01/2024 12:23:38 Lumbosacral radiculopathy [id number] M54.17 She is doing very well with Lyrica and TPI.She reports recent worsening of bilateral low back pain with radiation to bilateral lower extremity. S/p L5/S1 interlamin ar epidural steroid injection 09/13/23, initially had about 30% improvemen t though she now reports full resolution of back pain and sciatica. She endorse her pain occurs primarily with activity such as lifting and prolonged walking. She does not tolerate lumbar support braces. 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 She does reports increased drowsiness with midday dose. She prefers dosing schedule of lyrica 25mg in AM, 25mg midday, and 200mg at HS to keep flexibilit y with AM/afterno on dosing. This has been working well for her. Will send rx for lyrica 25mg twice daily and 100mg, #2 caps daily at bedtime. RTC 4 wks Patient's plan of care was reviewed by Dr. Hendrix who was present in office at time of evaluation and visit. Any new issues and patient complaints were reviewed by Dr. Hendrix and a plan of care was approved by him. Imaging studies reviewed with patient today that demonstrat e significan t spinal stenosis. Patient reports symptoms of a radiculopa thy in addition to corroborat ing physical exam findings such as positive straight leg raise test. Patient has completed 6 weeks of physical therapy in the past 6 months with no relief of their pain. The patient also continues to use NSAIDS, rest, ice, heat, and physician- directed stretching exercises with no relief of their symptoms. The patient routinely experience s pain scores greater than 6 out of 10. The pain interferes with the patient's ability to perform their activities of daily living. Recommend lumbar epidural steroid injection under fluoroscop ic guidance. This patient is being managed for a complex and serious condition that requires ongoing, intensive medical management . The nature of this condition demands constant vigilance and a nuanced approach to treatment. The seriousnes s of the condition necessitat es an in-depth and focused approach to management , including regular monitoring and potential coordinati on with other healthcare profession als. The complexity of the visit was due to the need for a detailed assessment of the current state, considerat ion of potential complicati ons, and a careful balancing of treatment options to manage the condition effectivel y. This patient has a significan t pain history which requires regular and detailed management . The condition' s impact on their life and health is substantia l, necessitat ing a comprehens joaquin and tailored approach to care. Neck pain [id number] M54.2 Patient reports today resolution of neck pain following botox injections . She was ordered for c-spine XR, which she has not gotten done yet. Given this improvemen t, will hold off XR for now. Fibromyalgia [id number] M 77.7 s/p TPI (11/14/2022 ) with >50% improvemen t.s/p TPI (03/02/2023 ) with >70% improvemen t. since completion of lumbar YESY, she feels she does not need further TPI Previously had started on LDN. She was unable to continue as was cost prohibitiv e No relief with cyclobenza antwan. She has done well with tizanidine in the past, but finds it makes her sleepy. Currently on methocarba mol 1000mg BID.Will send rx today for methocarba mol 500mg, two tabs BID as needed. She does get good benefit with topical OTC Diclofenac (her insurance does not cover). Advised to continue. Chronic mi graine without aura [id number] G43.709 Currently on Ajovy. Sees a neurologis t for migraine management , but she would like for us to take over this Rx.She was not able to fill rx sent 12/03/23. She will call pharmacy to see why this has not been filled, will call us back if needs PA. For the past 3 months, she has had >15 migraines per month. She has tried Fioricet, amitriptyl ine, Topiramate , Depakote which was minimally helpful for her symptoms. She is already prescribed Propanolol , Pregabalin and Sumatripta n. She cannot take NSAIDs due to concurrent use of [place]. s/p botox injection () with 85-90% improvemen t.s/p Botox injection (07/12/2023) with 85% improvemen t. She reports quantity of migraines is typically 2-3/month, previously was having >15/month repeat as needed Long-term drug therapy [id number] Z79.899 CSA renewed on 03/28/22. Opioid risk tool completed on 04/20/22. Patient scored 19 which is HIGH risk. Given HIGH score we will closely monitor the patient when we prescribe any controlled substances by performing frequent UT and send GCMS for EtOH and other illicit substances . GCMS 10/03/2022 (+) for Pregabalin . Negative for ETOH, Fentanyl, and all other tested substances GCMS 01/10/23 (+) pregabalin which is consistent . POC UT 05/04/23 (+) pregabalin , negative all other tested substances . This is consistent . POC UT negative all tested substances . This is consistent as patient is on pregabalin , which was not tested on point-of-c are UT. GCMS did not result. POC UT 09/05/23 negative all tested substances . This is consistent as patient is on pregabalin , which was not tested on point-of-c are UT - will send GCMS. She does report getting ativan at ED several days ago- reviewed note by ARELI Tariq on 09/02/23 from [facility] confirming this. GCMS 4/3/24 (+) pregabalin and negative all tested substances . This is consistent as patient is prescribed pregabalin . [id number] Seferino Hendrix DO [address], [address] [place] [address] 01/29/2024 16:44:28 01/29/2024 17:35:11 Lumbosacral radiculopathy [id number] M54.17 She is doing very well with Lyrica and TPI.She reports recent worsening of bilateral low back pain with radiation to bilateral lower extremity. S/p L5/S1 interlamin ar epidural steroid injection 09/13/23, initially had about 30% improvemen t though she then reported full resolution of back pain and sciatica. She recently has been having pain begin to return. She endorses her pain occurs primarily with activity such as lifting and prolonged walking.Sh e does not tolerate lumbar support braces. 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 She does reports increased drowsiness with midday dose. She preferred dosing schedule of lyrica 25mg in AM, 25mg midday, and 200mg at HS to keep flexibilit y with AM/afterno on dosing. Today she'd prefer to discontinu e morning doses as she ends up skipping them fairly frequently . Will send rx for lyrica 100mg, #2 caps daily at bedtime. RTC 4 wks Patient's plan of care was reviewed by Dr. Hendrix who was present in office at time of evaluation and visit. Any new issues and patient complaints were reviewed by Dr. Hendrix and a plan of care was approved by him. Imaging studies reviewed with patient today that demonstrat e significan t spinal stenosis. Patient reports symptoms of a radiculopa thy in addition to corroborat ing physical exam findings such as positive straight leg raise test. Patient has completed 6 weeks of physical therapy in the past 6 months with no relief of their pain. The patient also continues to use NSAIDS, rest, ice, heat, and physician- directed stretching exercises with no relief of their symptoms. The patient routinely experience s pain scores greater than 6 out of 10. The pain interferes with the patient's ability to perform their activities of daily living. Recommend lumbar epidural steroid injection under fluoroscop ic guidance. This patient is being managed for a complex and serious condition that requires ongoing, intensive medical management . The nature of this condition demands constant vigilance and a nuanced approach to treatment. The seriousnes s of the condition necessitat es an in-depth and focused approach to management , including regular monitoring and potential coordinati on with other healthcare profession als. The complexity of the visit was due to the need for a detailed assessment of the current state, considerat ion of potential complicati ons, and a careful balancing of treatment options to manage the condition effectivel y. This patient has a significan t pain history which requires regular and detailed management . The condition' s impact on their life and health is substantia l, necessitat ing a comprehens joaquin and tailored approach to care. Neck pain [id number] M54.2 Patient reports today resolution of neck pain following botox injections . She was ordered for c-spine XR, which she has not gotten done yet. Given this improvemen t, will hold off XR for now. Fibromyalgia [id number] M 77.7 s/p TPI (11/14/2022 ) with >50% improvemen t.s/p TPI (03/02/2023 ) with >70% improvemen t. since completion of lumbar YESY, she feels she does not need further TPI Previously had started on LDN. She was unable to continue as was cost prohibitiv e No relief with cyclobenza antwan. She has done well with tizanidine in the past, but finds it makes her sleepy. Currently on methocarba mol 1000mg BID.Will send rx today for methocarba mol 500mg, two tabs daily as needed. She does get good benefit with topical OTC Diclofenac (her insurance does not cover). Advised to continue. Chronic mi graine without aura [id number] 12316 G43.709 Currently on Ajovy. Sees a neurologis t for migraine management , but she would like for us to take over this Rx.She was able to fill this last month. Shoud have refills through May. For the past 3 months, she has had >15 migraines per month. She has tried Fioricet, amitriptyl ine, Topiramate , Depakote which was minimally helpful for her symptoms. She is already prescribed Propanolol , Pregabalin and Sumatripta n. She cannot take NSAIDs due to concurrent use of [place]. s/p botox injection () with 85-90% improvemen t.s/p Botox injection (07/12/2023) with 85% improvemen t. She reports quantity of migraines is typically 2-3/month, previously was having >15/monthD ue to changes with her insurance, we will no longer be able to order Botox for her. Long-term drug therapy [id number] Z79.899 CSA renewed on 03/28/22. Opioid risk tool completed on 04/20/22. Patient scored 19 which is HIGH risk. Given HIGH score we will closely monitor the patient when we prescribe any controlled substances by performing frequent UT and send GCMS for EtOH and other illicit substances . GCMS 10/03/2022 (+) for Pregabalin . Negative for ETOH, Fentanyl, and all other tested substances GCMS 01/10/23 (+) pregabalin which is consistent . POC UT 05/04/23 (+) pregabalin , negative all other tested substances . This is consistent . POC UT negative all tested substances . This is consistent as patient is on pregabalin , which was not tested on point-of-c are UT. GCMS did not result. POC UT 09/05/23 negative all tested substances . This is consistent as patient is on pregabalin , which was not tested on point-of-c are UT - will send GCMS. She does report getting ativan at ED several days ago- reviewed note by ARELI Tariq on 09/02/23 from [facility] confirming this. GCMS 09/05/23 (+) pregabalin and negative all tested substances . This is consistent as patient is prescribed pregabalin . [id number] DO ERIKA GREEN [address] [place] [address], [address] [place] [address] 02/26/2024 17:02:17 02/26/2024 17:50:38 Lumbosacral radiculopathy [id number] M54.17 She is doing very well with Lyrica and TPI.She reports recent worsening of bilateral low back pain with radiation to bilateral lower extremity. S/p L5/S1 interlamin ar epidural steroid injection 09/13/23, initially had about 30% improvemen t though she then reported full resolution of back pain and sciatica. She recently has been having pain begin to return. She endorses her pain occurs primarily with activity such as lifting and prolonged walking.Sh maria isabel is endorsing return of left lower extremity radicular symptoms. She is scheduled for ILE next month. Due to left sided symptoms may benefit from TFE. She does not tolerate lumbar support braces. 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 She previously endorsed that she was forgetting to take her morning and midday doses due to drowsiness . She reports that she still gets good effect with nightly dosing and she would like to continue this. Will send rx for pregabalin 100mg, #2 caps daily at bedtime. Note she is returning back to work and identifies that her new insurance is going to require her to pay a $65 co-pay for each office visit. She is inquiring about reducing the frequency of visits to every 3 months if possible. She may also consider asking her PCP to take on her pregabalin and methocarba mol. Per Dr. Garcia I did advise her that q 3 month f/u would be fine. She will let us know at follow-up. RTC 4 wks Patient's plan of care was reviewed by Dr. Martinez who was present in office at time of evaluation and visit. Any new issues and patient complaints were reviewed by Dr. Martinez and a plan of care was approved by him. Imaging studies reviewed with patient today that demonstrat e significan t spinal stenosis. Patient reports symptoms of a radiculopa thy in addition to corroborat ing physical exam findings such as positive straight leg raise test. Patient has completed 6 weeks of physical therapy in the past 6 months with no relief of their pain. The patient also continues to use NSAIDS, rest, ice, heat, and physician- directed stretching exercises with no relief of their symptoms. The patient routinely experience s pain scores greater than 6 out of 10. The pain interferes with the patient's ability to perform their activities of daily living. Recommend lumbar epidural steroid injection under fluoroscop ic guidance. This patient is being managed for a complex and serious condition that requires ongoing, intensive medical management . The nature of this condition demands constant vigilance and a nuanced approach to treatment. The seriousnes s of the condition necessitat es an in-depth and focused approach to management , including regular monitoring and potential coordinati on with other healthcare profession als. The complexity of the visit was due to the need for a detailed assessment of the current state, considerat ion of potential complicati ons, and a careful balancing of treatment options to manage the condition effectivel y. This patient has a significan t pain history which requires regular and detailed management . The condition' s impact on their life and health is substantia l, necessitat ing a comprehens joaquin and tailored approach to care. Neck pain [id number] M54.2 Patient reports today resolution of neck pain following botox injections . She was ordered for c-spine XR, which she has not gotten done yet. Given this improvemen t, will hold off XR for now. Fibromyalgia [id number] M 77.7 s/p TPI (11/14/2022 ) with >50% improvemen t.s/p TPI (03/02/2023 ) with >70% improvemen t. since completion of lumbar YESY, she feels she does not need further TPI Previously had started on LDN. She was unable to continue as was cost prohibitiv e No relief with cyclobenza antwan. She has done well with tizanidine in the past, but finds it makes her sleepy. Currently on methocarba mol 1000mg BID.Will send rx today for methocarba mol 500mg, two tabs daily as needed. She does get good benefit with topical OTC Diclofenac (her insurance does not cover). Advised to continue. Chronic mi graine without aura [id number] G43.709 Currently on Ajovy. Sees a neurologis t for migraine management , but she would like for us to take over this Rx.She was able to fill this last month. Should have refills through May. For the past 3 months, she has had >15 migraines per month. She has tried Fioricet, amitriptyl ine, Topiramate , Depakote which was minimally helpful for her symptoms. She is already prescribed Propanolol , Pregabalin and Sumatripta n. She cannot take NSAIDs due to concurrent use of [place]. s/p botox injection () with 85-90% improvemen t.s/p Botox injection (07/12/2023) with 85% improvemen t. She reports quantity of migraines is typically 2-3/month, previously was having >15/month Due to changes with her insurance, we will no longer be able to order Botox for her. She is going Long-term drug therapy [id number] Z79.899 CSA renewed on 03/28/22. Opioid risk tool completed on 04/20/22. Patient scored 19 which is HIGH risk. Given HIGH score we will closely monitor the patient when we prescribe any controlled substances by performing frequent UT and send GCMS for EtOH and other illicit substances . This patient is being managed for a complex and serious condition that requires ongoing, intensive medical management . The nature of this condition demands constant vigilance and a nuanced approach to treatment. The seriousnes s of the condition necessitat es an in-depth and focused approach to management , including regular monitoring and potential coordinati on with other healthcare profession als. The complexity of the visit was due to the need for a detailed assessment of the current state, considerat ion of potential complicati ons, and a careful balancing of treatment options to manage the condition effectivel y. This patient has a significan t pain history which requires regular and detailed management . The condition' s impact on their life and health is substantia l, necessitat ing a comprehens joaquin and tailored approach to care. GCMS 10/03/2022 (+) for Pregabalin . Negative for ETOH, Fentanyl, and all other tested substances GCMS 01/10/23 (+) pregabalin which is consistent . POC UT 05/04/23 (+) pregabalin , negative all other tested substances . This is consistent . POC UT negative all tested substances . This is consistent as patient is on pregabalin , which was not tested on point-of-c are UT. GCMS did not result. POC UT 09/05/23 negative all tested substances . This is consistent as patient is on pregabalin , which was not tested on point-of-c are UT - will send GCMS. She does report getting ativan at ED several days ago- reviewed note by ShikhaARELI Adams on 09/02/23 from [facility] confirming this. GCMS 09/05/23 (+) pregabalin and negative all tested substances . This is consistent as patient is prescribed pregabalin . [id number] ANNE MARTINEZ DO [address], [address] [place] [address] 03/18/2024 17:27:03 03/18/2024 18:08:34 Lumbosacral radiculopathy [id number] M54.17 L5/S1 interlamin ar epidural steroid injection done today under fluoroscop ic guidance [id number] ANNE MARTINEZ DO [address], [address] [place] [address] 04/02/2024 08:07:11 04/02/2024 08:30:12 Lumbosacral radiculopathy [id number] M54.17 She is doing very well with Lyrica and TPI.She reports recent worsening of bilateral low back pain with radiation to bilateral lower extremity. S/p L5/S1 interlamin ar epidural steroid injection 09/13/23, initially had about 30% improvemen t though she then reported full resolution of back pain and sciatica.s /p L L5/S1 Interlamin ar Epidural Steroid Injection 03/18/24 with 100% improvemen t She recently has been having pain begin to return. She endorses her pain occurs primarily with activity such as lifting and prolonged walking.Sh e is endorsing return of left lower extremity radicular symptoms. She is scheduled for ILE next month. Due to left sided symptoms may benefit from TFE. She does not tolerate lumbar support braces. 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 She previously endorsed that she was forgetting to take her morning and midday doses due to drowsiness . She reports that she still gets good effect with nightly dosing and she would like to continue this. Will send rx for pregabalin 100mg, #2 caps daily at bedtime. Note she is returning back to work and identifies that her new insurance is going to require her to pay a $65 co-pay for each office visit. She is inquiring about reducing the frequency of visits to every 3 months if possible. She may also consider asking her PCP to take on her pregabalin and methocarba mol. Per Dr. Garcia I did advise her that q 3 month f/u would be fine. She will let us know at follow-up. RTC 3 months Patient's plan of care was reviewed by Dr. Martinez who was present in office at time of evaluation and visit. Any new issues and patient complaints were reviewed by Dr. Martinez and a plan of care was approved by him. Imaging studies reviewed with patient today that demonstrat e significan t spinal stenosis. Patient reports symptoms of a radiculopa thy in addition to corroborat ing physical exam findings such as positive straight leg raise test. Patient has completed 6 weeks of physical therapy in the past 6 months with no relief of their pain. The patient also continues to use NSAIDS, rest, ice, heat, and physician- directed stretching exercises with no relief of their symptoms. The patient routinely experience s pain scores greater than 6 out of 10. The pain interferes with the patient's ability to perform their activities of daily living. Recommend lumbar epidural steroid injection under fluoroscop ic guidance. This patient is being managed for a complex and serious condition that requires ongoing, intensive medical management . The nature of this condition demands constant vigilance and a nuanced approach to treatment. The seriousnes s of the condition necessitat es an in-depth and focused approach to management , including regular monitoring and potential coordinati on with other healthcare profession als. The complexity of the visit was due to the need for a detailed assessment of the current state, considerat ion of potential complicati ons, and a careful balancing of treatment options to manage the condition effectivel y. This patient has a significan t pain history which requires regular and detailed management . The condition' s impact on their life and health is substantia l, necessitat ing a comprehens joaquin and tailored approach to care. Neck pain [id number] M54.2 Patient reports today resolution of neck pain following botox injections . She was ordered for c-spine XR, which she has not gotten done yet. Given this improvemen t, will hold off XR for now. Fibromyalgia [id number] M 77.7 s/p TPI (11/14/2022 ) with >50% improvemen t.s/p TPI (03/02/2023 ) with >70% improvemen t. since completion of lumbar YESY, she feels she does not need further TPI Previously had started on LDN. She was unable to continue as was cost prohibitiv e No relief with cyclobenza antwan. She has done well with tizanidine in the past, but finds it makes her sleepy. Currently on methocarba mol 1000mg BID.Will send rx today for methocarba mol 500mg, two tabs daily as needed. She does get good benefit with topical OTC Diclofenac (her insurance does not cover). Advised to continue. Chronic mi graine without aura [id number] G43.709 Currently on Ajovy. Sees a neurologis t for migraine management , but she would like for us to take over this Rx.Current ly has refills to May will send refill to get her to June. She does not need Imitrex and will call if she runs out. For the past 3 months, she has had >15 migraines per month. She has tried Fioricet, amitriptyl ine, Topiramate , Depakote which was minimally helpful for her symptoms. She is already prescribed Propanolol , Pregabalin and Sumatripta n. She cannot take NSAIDs due to concurrent use of [place]. s/p botox injection ( 3) with 85-90% improvemen t.s/p Botox injection (07/12/2023) with 85% improvemen t. She reports quantity of migraines is typically 2-3/month, previously was having >15/month Due to changes with her insurance, we will no longer be able to order Botox for her. She is going Long-term drug therapy [id number] Z79.899 CSA renewed on 03/28/22. Opioid risk tool completed on 04/20/22. Patient scored 19 which is HIGH risk. Given HIGH score we will closely monitor the patient when we prescribe any controlled substances by performing frequent UT and send GCMS for EtOH and other illicit substances . This patient is being managed for a complex and serious condition that requires ongoing, intensive medical management . The nature of this condition demands constant vigilance and a nuanced approach to treatment. The seriousnes s of the condition necessitat es an in-depth and focused approach to management , including regular monitoring and potential coordinati on with other healthcare profession als. The complexity of the visit was due to the need for a detailed assessment of the current state, considerat ion of potential complicati ons, and a careful balancing of treatment options to manage the condition effectivel y. This patient has a significan t pain history which requires regular and detailed management . The condition' s impact on their life and health is substantia l, necessitat ing a comprehens joaquin and tailored approach to care. GCMS 10/03/2022 (+) for Pregabalin . Negative for ETOH, Fentanyl, and all other tested substances GCMS 01/10/23 (+) pregabalin which is consistent . POC UT 05/04/23 (+) pregabalin , negative all other tested substances . This is consistent . POC UT negative all tested substances . This is consistent as patient is on pregabalin , which was not tested on point-of-c are UT. GCMS did not result. POC UT 09/05/23 negative all tested substances . This is consistent as patient is on pregabalin , which was not tested on point-of-c are UT - will send GCMS. She does report getting ativan at ED several days ago- reviewed note by ARELI Tariq on 09/02/23 from [facility] confirming this. GCMS 09/05/23 (+) pregabalin and negative all tested substances . This is consistent as patient is prescribed pregabalin . [id number] DO ERIKA GREEN [address] [place] [address], [address] [place] [address] 07/03/2024 15:24:24 07/03/2024 16:04:47 Lumbosacral radiculopathy [id number] M54.17 She is doing very well with Lyrica and TPI.She reports recent worsening of bilateral low back pain with radiation to bilateral lower extremity. S/p L5/S1 interlamin ar epidural steroid injection 09/13/23, initially had about 30% improvemen t though she then reported full resolution of back pain and sciatica.s /p L L5/S1 Interlamin ar Epidural Steroid Injection 03/18/24 with 100% improvemen t She declines any having any bothersome symptoms at this time. She does not tolerate lumbar support braces. 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 She previously endorsed that she was forgetting to take her morning and midday doses due to drowsiness . She reports that she still gets good effect with nightly dosing and she would like to continue this. Will send rx for pregabalin 100mg, #2 caps daily at bedtime. Note she is returning back to work and identifies that her new insurance is going to require her to pay a $65 co-pay for each office visit. She is inquiring about reducing the frequency of visits to every 3 months if possible. She may also consider asking her PCP to take on her pregabalin and methocarba mol. Per Dr. Garcia I did advise her that q 3 month f/u would be fine. She will let us know at follow-up. RTC 1 months Patient's plan of care was reviewed by Dr. Martinez who was present in office at time of evaluation and visit. Any new issues and patient complaints were reviewed by Dr. Martinez and a plan of care was approved by him. This patient is being managed for a complex and serious condition that requires ongoing, intensive medical management . The nature of this condition demands constant vigilance and a nuanced approach to treatment. The seriousnes s of the condition necessitat es an in-depth and focused approach to management , including regular monitoring and potential coordinati on with other healthcare profession als. The complexity of the visit was due to the need for a detailed assessment of the current state, considerat ion of potential complicati ons, and a careful balancing of treatment options to manage the condition effectivel y. This patient has a significan t pain history which requires regular and detailed management . The condition' s impact on their life and health is substantia l, necessitat ing a comprehens joaquin and tailored approach to care. Neck pain [id number] M54.2 Patient reports today resolution of neck pain following botox injections . She was ordered for c-spine XR, which she has not gotten done yet. Given this improvemen t, will hold off XR for now. Fibromyalgia [id number] M 77.7 s/p TPI (11/14/2022 ) with >50% improvemen t.s/p TPI (03/02/2023 ) with >70% improvemen t. since completion of lumbar YESY, she feels she does not need further TPI Previously had started on LDN. She was unable to continue as was cost prohibitiv e No relief with cyclobenza antwan. She reports side effect with baclofen but not sure what it was. Currently on methocarba mol 1000mg BID. Today she reports her insurance no longer covers this. She did get some sleepiness with tizanidine but it was effective and she would like to retrial this. Will send for tizanidine 2 mg 3 times a day as needed I advised her if 2 mg is not sufficient she may take 2 capsules. She primarily takes this at night and I advised her to be aware of drowsiness and sleepiness if taking this during the day. She verbalizes understand ing of this Rx sent. She does get good benefit with topical OTC Diclofenac (her insurance does not cover). Advised to continue. Chronic mi graine without aura [id number] 04721 G43.709 Today she reports that Ajovy is no longer covered on the formal formulary for her insurance. She reports diminishin g effect with Imitrex. Since being off Ajovy she has had >15 migraines per month. She has tried Fioricet, amitriptyl ine, Topiramate , Depakote which was minimally helpful for her symptoms. She is already prescribed Propanolol , Pregabalin and Sumatripta n. She cannot take NSAIDs due to concurrent use of [place]. s/p botox injection () with 85-90% improvemen t.s/p Botox injection (07/12/2023) with 85% improvemen t. She reports quantity of migraines is typically 2-3/month, previously was having >15/month Due to changes with her insurance, we will no longer be able to order Botox for her. Long-term drug therapy [id number] Z79.899 CSA renewed on 03/28/22. Opioid risk tool completed on 04/20/22. Patient scored 19 which is HIGH risk. Given HIGH score we will closely monitor the patient when we prescribe any controlled substances by performing frequent UT and send GCMS for EtOH and other illicit substances . This patient is being managed for a complex and serious condition that requires ongoing, intensive medical management . The nature of this condition demands constant vigilance and a nuanced approach to treatment. The seriousnes s of the condition necessitat es an in-depth and focused approach to management , including regular monitoring and potential coordinati on with other healthcare profession als. The complexity of the visit was due to the need for a detailed assessment of the current state, considerat ion of potential complicati ons, and a careful balancing of treatment options to manage the condition effectivel y. This patient has a significan t pain history which requires regular and detailed management . The condition' s impact on their life and health is substantia l, necessitat ing a comprehens joaquin and tailored approach to care. GCMS 10/03/2022 (+) for Pregabalin . Negative for ETOH, Fentanyl, and all other tested substances GCMS 01/10/23 (+) pregabalin which is consistent . POC UT 05/04/23 (+) pregabalin , negative all other tested substances . This is consistent . POC UT negative all tested substances . This is consistent as patient is on pregabalin , which was not tested on point-of-c are UT. GCMS did not result. POC UT 09/05/23 negative all tested substances . This is consistent as patient is on pregabalin , which was not tested on point-of-c are UT - will send GCMS. She does report getting ativan at ED several days ago- reviewed note by ARELI Tariq on 09/02/23 from [facility] confirming this. GCMS 09/05/23 (+) pregabalin and negative all tested substances . This is consistent as patient is prescribed pregabalin . Nausea and vomiting [id number] R11.2 Patient has had increase in migraines since being off Ajovy. She has gotten good relief with Zofran in the past and is requesting that I send her prescripti on today. RX sent. Health Concerns Section Related Observation LastModified by Organization Detai ls LastModified Time None Recorded Concern Status LastModified by Organization Details LastModified Time None Recorded Advance Directives Directive None Recorded Payers Encounter Date Sequence Insurance Name Policy Number Policy Berrios Covered Member ID Berrios Member ID Guarantor Name 02/26/2024 1 [place] [employer] Roberto Castanedawell [id number] Counts Include [facility] 02/26/2024 2 [place] [facility] Roberto Winthrop [id number] Counts Include [facility] 03/18/2024 1 [facility] [id number] Counts Include [facility] 03/18/2024 2 [facility] [id number] Counts Include [facility] 04/02/2024 1 [place] [facility] [id number] Counts Include [facility] 04/02/2024 2 [place] [facility] [place] [id number] Counts Include [facility] 07/03/2024 1 [place] [id number] Counts Include [facility] 07/03/2024 2 [place] [facility] [id number] Counts Include [facility] Notes Date Note Type Note Provider Name and Address Organization Details Recorded Time 02/26/2024 text/html Hendrix HeadacheReported bypatient.Onset/Timing :Patient has had this pain for: years; years Location:Right frontal region. ; Right temporal region. ; Right parietal region. ; Right occipital region. ; Left frontal region. ; Left temporal region. ; Left parietal region. ; Left occipital region. Duration:constant Character:aching;dull; throbbing Severity:current pain level 0/10; worst pain 2/10 Pain Relief with Current Medications:Patient reports significant reduction in pain while taking their medications.; ajovy Prior InterventionsInjection s/Nerve Blocks. ; botox injectionsQureshi Lower Back PainReported bypatient.Onset/Timing :Patient has had this pain for: years; The pain began after event: coccyx fracture; coccyx fracture in 2011 Location:Right-sided; Midline lower back; left groin pain; right buttock pain; tailbone Duration:constant Character:aching;dull; throbbing;sharp;stabbi ng Associated Symptoms:no new onset bladder incontinence; no new onset bowel incontinence; no saddle anesthesia; no new onset weakness in either upper or lower extremities;numbness/t ingling in: BLE Radiation:right lower extremity above the knee Aggravating Factors:bending backwards; bending forward; physical activity; walking uphill; walking downhill; prolonged standing position; prolonged sitting position; lifting objects Alleviating Factors:lying down; heat Severity:current pain level 2/10; worst pain 4/10; lowest pain score 0/10 Pain Relief with Current Medications:Patient reports significant reduction in pain while taking their medications.; Patient reports taking the medications only as prescribed.; Patient reports improvement in functional status while taking these medications.; Patient denies any adverse effects on current medication regimen.; significant relief with pregabalin lidocaine patch- no relief Previous Surgery:none Previous Laboratory Supervisor:none Previous PT:did not help; aggravated symptoms Prior Imaging:MRIQureshi Neck PainReported bypatient.Onset/Timing :Patient has had this pain for: years; many years Location:Right-sided; Left-sided; Midline/bilateral neck Duration:constant Character:aching Associated Symptoms:no new onset bladder incontinence; no new onset bowel incontinence Radiation:no radiation Aggravating Factors:bending neck backward; bending neck forward; turning head to right; turning head to left Alleviating Factors:nothing helps Severity:current pain level 5/10; worst pain 8/10 Pain Relief with Current Medications:Patient reports significant reduction in pain while taking their medications.; Patient reports taking the medications only as prescribed.; Patient reports improvement in functional status while taking these medications.; Patient denies any adverse effects on current medication regimen. ANNE MARTINEZ, [address], [address], [place], [address], [facility], [facility] 02/26/2024 19:02:46 04/02/2024 text/html Hendrix HeadacheReported bypatient.Onset/Timing :Patient has had this pain for: years; years Location:Right frontal region. ; Right temporal region. ; Right parietal region. ; Right occipital region. ; Left frontal region. ; Left temporal region. ; Left parietal region. ; Left occipital region. Duration:constant Character:aching;dull; throbbing Severity:current pain level 0/10; worst pain 2/10 Pain Relief with Current Medications:Patient reports significant reduction in pain while taking their medications.; ajovy Prior InterventionsInjection s/Nerve Blocks. ; botox injectionsQureshi Lower Back PainReported bypatient.Onset/Timing :Patient has had this pain for: years; The pain began after event: coccyx fracture; coccyx fracture in 2011 Location:Right-sided; Midline lower back; left groin pain; right buttock pain; tailbone Duration:constant Character:aching;dull; throbbing;sharp;stabbi ng Associated Symptoms:no new onset bladder incontinence; no new onset bowel incontinence; no saddle anesthesia; no new onset weakness in either upper or lower extremities;numbness/t ingling in: BLE Radiation:right lower extremity above the knee Aggravating Factors:bending backwards; bending forward; physical activity; walking uphill; walking downhill; prolonged standing position; prolonged sitting position; lifting objects Alleviating Factors:lying down; heat Severity:current pain level 0/10; worst pain 4/10; lowest pain score 0/10 Pain Relief with Current Medications:Patient reports significant reduction in pain while taking their medications.; Patient reports taking the medications only as prescribed.; Patient reports improvement in functional status while taking these medications.; Patient denies any adverse effects on current medication regimen.; significant relief with pregabalin lidocaine patch- no relief Previous Surgery:none Previous Laboratory Supervisor:none Previous PT:did not help; aggravated symptoms Prior Imaging:MRIQureshi Neck PainReported bypatient.Onset/Timing :Patient has had this pain for: years; many years Location:Right-sided; Left-sided; Midline/bilateral neck Duration:constant Character:aching Associated Symptoms:no new onset bladder incontinence; no new onset bowel incontinence Radiation:no radiation Aggravating Factors:bending neck backward; bending neck forward; turning head to right; turning head to left Alleviating Factors:nothing helps Severity:current pain level 5/10; worst pain 8/10 Pain Relief with Current Medications:Patient reports significant reduction in pain while taking their medications.; Patient reports taking the medications only as prescribed.; Patient reports improvement in functional status while taking these medications.; Patient denies any adverse effects on current medication regimen. ANNE MARTINEZ [address], [address], [place], [address], [facility], [facility] 04/02/2024 12:56:23 07/03/2024 text/html [facility] HeadacheReported bypatient.Onset/Timing :Patient has had this pain for: years; years Location:Right frontal region. ; Right temporal region. ; Right parietal region. ; Right occipital region. ; Left frontal region. ; Left temporal region. ; Left parietal region. ; Left occipital region. Duration:constant Character:aching;dull; throbbing Severity:current pain level 0/10; worst pain 2/10 Pain Relief with Current Medications:Patient reports significant reduction in pain while taking their medications.; moisesovy Prior InterventionsInjection s/Nerve Blocks. ; botox injectionsQureshi Lower Back PainReported bypatient.Onset/Timing :Patient has had this pain for: years; The pain began after event: coccyx fracture; coccyx fracture in 2011 Location:Right-sided; Midline lower back; left groin pain; right buttock pain; tailbone Duration:constant Character:aching;dull; throbbing;sharp;stabbi ng Associated Symptoms:no new onset bladder incontinence; no new onset bowel incontinence; no saddle anesthesia; no new onset weakness in either upper or lower extremities;numbness/t ingling in: BLE Radiation:right lower extremity above the knee Aggravating Factors:bending backwards; bending forward; physical activity; walking uphill; walking downhill; prolonged standing position; prolonged sitting position; lifting objects Alleviating Factors:lying down; heat Severity:current pain level 0/10; worst pain 4/10; lowest pain score 0/10 Pain Relief with Current Medications:Patient reports significant reduction in pain while taking their medications.; Patient reports taking the medications only as prescribed.; Patient reports improvement in functional status while taking these medications.; Patient denies any adverse effects on current medication regimen.; significant relief with pregabalin lidocaine patch- no relief Previous Surgery:none Previous Laboratory Supervisor:none Previous PT:did not help; aggravated symptoms Prior Imaging:MRIQureshi Neck PainReported bypatient.Onset/Timing :Patient has had this pain for: years; many years Location:Right-sided; Left-sided; Midline/bilateral neck Duration:constant Character:aching Associated Symptoms:no new onset bladder incontinence; no new onset bowel incontinence Radiation:no radiation Aggravating Factors:bending neck backward; bending neck forward; turning head to right; turning head to left Alleviating Factors:nothing helps Severity:current pain level 5/10; worst pain 8/10 Pain Relief with Current Medications:Patient reports significant reduction in pain while taking their medications.; Patient reports taking the medications only as prescribed.; Patient reports improvement in functional status while taking these medications.; Patient denies any adverse effects on current medication regimen. ANNE MARTINEZ DO [address] [place] [address], [address], [place], [address], [facility], [facility] 07/04/2024 07:59:36 OBGyn Episode No OBEpisode recorded.
[2024-08-04 22:41] VITALS: BP 134/71; PULSE 80; RESP 20; TEMP 36.9; O2SAT 98
[2024-08-04 23:00] VITALS: BP 134/71; PULSE 80; RESP 20; TEMP 36.9; O2SAT 98
== END 2024-08-04 23:00 ==
PROVIDERS: Emergency Medicine; Emergency Provider Emergency Medicine Emergency Medical Services
DX: R45.851 Suicidal ideations (principal); T18.9XXA Foreign body of alimentary tract, part unspecified, initial encounter; W44.8XXA Other foreign body entering into or through a natural orifice, initial encounter; Y93.89 Activity, other specified; Y92.199 Unspecified place in other specified residential institution as the place of occurrence of the external cause; Y99.9 Unspecified external cause status; F32.A Depression, unspecified; F41.9 Anxiety disorder, unspecified; Z91.51 Personal history of suicidal behavior
CPT/HCPCS: 71045; 74176; 81025; 99285

== ENCOUNTER → 2024-08-04 14:59 | Outpatient (BNV) | payer MEDICARE, MEDICAID, SELFPAY | PROVIDERS: Emergency Provider Emergency Medicine; Visit Provider Radiology Diagnostic Radiology | DX: J98.11 Atelectasis (principal); K85.90 Acute pancreatitis without necrosis or infection, unspecified | CPT/HCPCS: 71045; 74176 ==